=== PATIENT | female | born 1990 | race Caucasian/White ===

== ENCOUNTER → 2018-03-03 11:51 | Outpatient (CLI) | payer OTHER, SELFPAY ==
--- NOTE | 2018-03-02 13:50 | FLU_PTH ---
PATIENT: PIETER KELLER LOC: [facility] U#:[id number] AGE/SX: 34/F ROOM: RE03/03/[address]: Dr. Vania Johnson MD : 1990 BED: DIS: SPEC #: [id number] RECD: 03/03/18 11:50 STATUS: JELANI REBraxton #: [id number] HERNESTO: 03/02/18 13:[address]: Vania Johnson DEPT: CYTOLOGY RECD BY: Micky Whitt ENTERED: 03/03/18 12:15 SP TYPE: Fluid OTHR DR: Dr. Join Adamson MD Tissues: A - Thyroid gland, NOS B - Thyroid gland, NOS Procedures: Pap Stain (control) Special Stain Group II Surgery Specimen Level IV Cell Block Cytospin Fluid Cytology Other HEADER OPERATION: Ultrasound-guided fine needle aspiration of right thyroid PRE-OP DIAGNOSIS: Thyroid nodules TISSUE SUBMITTED: A ? FNA right thyroid for cytology, B ? Right thyroid 6 slides DIAGNOSIS CYTOLOGY A. Right thyroid nodule fluid for cytology (cytospin and cell block): Negative for malignant cells. See cytology study and comment. B. Right thyroid nodule, ultrasound-guided FNA (smears): Consistent with benign colloid nodule. See cytology study and comment. JACKLYN:ubaldo 03/04/18 COMMENT Correlation with clinical, radiologic findings and appropriate follow up are necessary. CYTOLOGY STUDY Slides are reviewed. A. The specimen consists of benign follicular cells and numerous macrophages. B. The specimen is adequate for evaluation. The specimen consists of benign follicular cells, lymphocytes and colloid. CYTOLOGY GROSS A - Received is 40 ml of cloudy brown fluid labeled with the patient's name and and designated per the requisition as right thyroid. Submitted for cytology preparation including cell block. B - Received are six smears labeled with the patient's name and designated per the requisition as right thyroid. Submitted for staining. / JACKLYN:ubaldo 03/03/18 TC:5 CPT: 15172, 52649, 98060
== END ==
PROVIDERS: Family Provider Family Medicine; PCP Family Medicine; Visit Provider Surgery
DX: E04.2 Nontoxic multinodular goiter (principal)
CPT/HCPCS: 88108; 88161; 88305; 88313

== ENCOUNTER 2018-05-01 18:07 | Emergency (ER) | payer OTHER, SELFPAY ==
[2018-05-01 18:07] VITALS: BP 163/93; PULSE 97; RESP 18; TEMP 37.1; O2SAT 98; BMI 35.4
--- NOTE | 2018-05-01 19:38 | ED.VISSUMM ---
- ER Visit Summary Date of Service: 05/01/18 Chief Complaint: Itching History of Present Illness: The patient is a 27 F who presents with itching. She woke this morning her feet were itching. That is improved but now she complains of severe itching on both her hands. She used cortisone cream. She states she can take Benadryl at home because she has children and it will knock me out. She denies any other systemic symptoms. No fevers chest pain shortness of breath nausea or vomiting. She cannot identify any new exposures any new soaps or detergents. She cannot think of any new foods or medications. Physical Examination: Afebrile vitals are stable Moist mucous members Heart regular rate and rhythm Lungs are clear Abdomen soft Patient is aggressively and rapidly scratching both her hands there is some erythema of both of the hands although it is difficult to tell if this is a rash or just related to the fact that she has been scratching her hands very hard I do not see lymphangitic streaking it is not hot to the touch there are no petechiae or raised lesions or blistering or desquamation Test Results: Not indicated Emergency Department Course and Treatment: Given the patient's symptoms are currently isolated to the hands I suspect this is related to a contact dermatitis. However she cannot identify a new exposure. We will give her a dose of intramuscular Kenalog here. 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 She was advised to follow-up with her primary care physician. She understands return for new or worsening symptoms and was discharged home. Treatment Plan: [] Disposition: Discharge Impression: Rash and itching to bilateral hands, suspect contact dermatitis This note was generated with [employer] dictation software. It may contain incorrect words, spelling, and punctuation that were not noted in review of the chart prior to signing ED Disposition - Plan for ED Patient: Chief Complaint: Itching Referrals: Joni Adamson MD [Primary Care Provider] -
--- NOTE | 2018-05-01 19:40 | ED.DEP ---
ED Disposition - Plan for ED Patient: Chief Complaint: Itching Instructions: ED Dermatitis Contact Referrals: Joni Adamson MD [Primary Care Provider] -
[2018-05-01] MEDS: Triamcinolone Acetonide 40 MG/ML Vial IM (19:47)
[2018-05-01 20:11] VITALS: BP 150/74; PULSE 95; RESP 14; O2SAT 98
== END 2018-05-01 20:15 | disposition home or self-care (01) ==
LOC: ED 19:44
PROVIDERS: Emergency Provider Emergency Medicine; Family Provider Family Medicine; PCP Family Medicine
DX: R21 Rash and other nonspecific skin eruption (principal); L29.9 Pruritus, unspecified; F41.9 Anxiety disorder, unspecified; Z79.899 Other long term (current) drug therapy; Z72.0 Tobacco use
CPT/HCPCS: 96372; 99282

== ENCOUNTER 2018-06-15 11:21 | Emergency (ER) | payer OTHER, SELFPAY ==
[2018-06-15 11:23] VITALS: BP 157/106; PULSE 129; RESP 15; TEMP 36; O2SAT 95; BMI 36.9
--- NOTE | 2018-06-15 11:52 | EKG12_ITS ---
Test Reason : SYNCOPE Blood Pressure : / mmHG Vent. Rate : 089 BPM Atrial Rate : 089 BPM P-R Int : 132 ms QRS Dur : 084 ms QT Int : 370 ms P-R-T Axes : 003 -16 005 degrees QTc Int : 450 ms Normal sinus rhythm Normal ECG Confirmed by PATRICIA BECERRA, PAULA ([id number]), continuity editor CHARLEEN WRIGHT ([id number]) on 06/16/2018 3:45:44 PM Referred By: RADHA Confirmed By:PAULA GOMEZ MD
--- NOTE | 2018-06-15 11:56 | NURSING ---
NO OLD EKGS
[2018-06-15 12:18] LABS: Absolute Lymphocyte Count 2.39 X10^3/ul (0.83-4.51); Absolute Neutrophil Count 10.4 X10^3/uL (2.0-7.7); Basophil# 0.06 X10^3/uL; Basophil% 0.4 % (0-1); Eosinophil# 0.68 X10^3/uL; Eosinophils% 4.8 % (0-5); Hematocrit 45.7 % (37-47); Hemoglobin 14.6 g/dl (12.0-15.0); Lymphocyte # 2.39 X10^3/ul (4.0); Lymphocyte % 16.7 % (19-41); Mean Corp Hgb Conc 31.9 g/gl (32-36); Mean Corpuscular Hgb 23.2 pg (27.0-32.0); Mean Corpuscular Volume 72.5 fL (81-99); Mean Platelet Vol. 9.8 fl (6.2-12.0); Monocyte% 4.9 % (0-10); Neutrophil # 10.36 X10^3/uL (2.7-7.7); Neutrophil % 72.6 % (47-70); POSITIVE COUNT NO; POSITIVE DIFFERENTIAL NO; POSITIVE MORPHOLOGY NO; Platelet Count 362 K/mm3 (150-450); RBC Distribution Width CV 15.1 % (11.6-14.6); RBC Distribution Width SD 39.9 fl (35.1-43.9); White Blood Count 14.3 K/mm3 (4.4-11.0)
[2018-06-15 12:34] LABS: ALB/GLOB Ratio 0.8 RATIO (0.9-2.4); AST(SGOT) 12 U/L (15-37); Alanine Aminotransfer ALT/SGPT 26 U/L (13-56); Albumin, Serum 3.7 g/dL (3.2-5.0); Alkaline Phosphatase 143 U/L (45-117); Anion Gap 9 (5-15); BUN 13 mg/dL (7-18); BUN/Creat Ratio 18.2 RATIO (10-20); Calcium,Total 8.9 mg/dL (8.5-10.1); Chloride 105 mmol/L (98-107); Creatinine, Serum 0.71 mg/dL (0.55-1.02); EST Glomerular Filtration Rate 104 mL/min (>60); Est Glom Filt Rate - Afr Amer 126 mL/min (>60); Estimated Creatinine Clearance 102.78 ml/min; Globulin 4.4 g/dL (2.2-4.2); Glucose 94 mg/dL (74-106); Protein, Total 8.1 g/dL (6.4-8.2); Sodium Level 138 mmol/L (136-145)
[2018-06-15 12:40] LABS: Pregnancy, Serum, hCG Quali. NEGATIVE Negative (0-9 Nonpreg)
--- NOTE | 2018-06-15 12:42 | CT_ITS ---
STUDY: CTA CHEST REASON FOR EXAM: Female, 27 years old. Cough. Syncopal episode. RADIATION DOSAGE (If Supplied By Facility): CTDIvol = ( 14.85 ) mGy, DLP = ( 579.01 ) mGycm TECHNIQUE: The examination was performed with the intravenous administration of 100ML ml of Isovue 370 contrast material. Post-processing of the angiographic images was performed, with multiplanar reformation and 3D reconstruction. Individualized dose optimization techniques were used for this CT. COMPARISON: None. FINDINGS: Normal enhancement of the main pulmonary artery and right and left pulmonary arteries. Normal enhancement of the bilateral peripheral pulmonary arteries. There is no demonstrated pulmonary embolism. Normal thoracic aorta and visualized great vessels. There is no demonstrated aortic dissection. Normal heart and pericardium. Normal mediastinum. Normal hilar regions. Normal visualized trachea and bronchi. The lungs are well expanded. Normal pulmonary parenchyma. Normal pleura. Normal chest wall structures. Normal osseous structures. Normal visualized upper abdomen. CT/CTA Chest W/WO Contrast IMPRESSION: Normal CTA chest examination, without a demonstrated pulmonary embolism or arterial dissection. Electronically Signed: Matti Scherer MD at 13:35 EST Tel [phone], Service support ,
--- NOTE | 2018-06-15 12:43 | CT_ITS ---
STUDY: CT BRAIN WITHOUT CONTRAST REASON FOR EXAM: Female, 27 years old. Syncope and amnesia. RADIATION DOSAGE (If Supplied By Facility): CTDIvol = ( 44.99 ) mGy, DLP = ( 745.49 ) mGycm TECHNIQUE: Transaxial CT imaging of the brain was performed without administration of intravenous contrast material. Individualized dose optimization techniques were used for this CT. COMPARISON: None. FINDINGS: Normal soft tissue structures. Normal calvarium. Normal size ventricles and extra-axial spaces for the patient's age. Normal white matter tracts of the cerebral hemispheres. Normal basal ganglia and thalami. Normal brainstem. Normal cerebellum. There is no intracranial hemorrhage. There are no findings of an acute ischemic infarction. There is evidence of an empty sella. Normal visualized paranasal sinuses. CT/Brain/Head without Contrast IMPRESSION: Normal unenhanced CT scan of the brain. Electronically Signed: Matti Scherer MD at 13:33 EST Tel [phone], Service support ,
--- NOTE | 2018-06-15 14:20 | ED.VISSUMM ---
- ER Visit Summary Date of Service: 06/15/18 Chief Complaint: Possible syncope History of Present Illness: The patient is a 27 F who states that last she had carpal tunnel injury. She states that on Wednesday she was diagnosed hypertension started on lisinopril. Yesterday she began to have a very persistent dry cough. She states her throat hurts from coughing. She denies any nasal congestion. No fever. Today she was going to go to the urgent care to see a doctor about this cough. She low the kids up and when she went inside she states she must have tripped on something and fell and she states that she does not really remember anything after that but she must have gone to the kitchen and stumbled because there was disarray. She notes pain in the right hand. She denies any other injuries. Physical Examination: Afebrile vital signs are stable Gen: Well-nourished well-developed Head: Normocephalic atraumatic Eyes: Perrl EOMI ENT: TMs clear no rhinorrhea moist mucous membranes Neck: Supple no lymphadenopathy no JVD nontender CVS: Regular rate rhythm no murmurs normal S1-S2 Respiratory: No distress clear to auscultation bilaterally chest nontender Abdomen: Soft nontender nondistended normal bowel sounds no masses Back: Nontender Extremity: There is a healing incision over the palm of the right hand. There is no significant swelling or ecchymosis. Stitches are intact. Neurovascular intact distally. Skin: Normal color no rash Neuro: alert orientated ?3 CN II-XII intact normal strength sensation reflexes gait cerebellar Psych: Normal affect normal mood Test Results: CT head and chest were negative. White count 14.3 hemoglobin 14.6. Platelets 362. CBC liver enzymes normal. Troponin negative. Parents test negative. EKG sinus at a rate of 89. Emergency Department Course and Treatment: Patient was observed has had no events on the monitor. The patient was advised this dry cough that seems to have no other symptoms with it could potentially be caused by lisinopril and I would recommend stopping the lisinopril. Also write for some Tessalon Perles. She is to follow-up with her doctor soon as possible. Impression: 1. Cough 2. Syncope This note was generated with [employer] software. It may contain incorrect words, spelling, and punctuation that were not noted in review of the chart prior to signing ED Disposition - Plan for ED Patient: Disposition: Home or Assisted Living Chief Complaint: Syncope Instructions: ED Fainting Unkn Cause, ED URI Viral Prescriptions: Benzonatate [Tessalon Perle] 100 mg PO 4X/DAY PRN PRN #20 cap PRN Reason: Cough Referrals: Jnoi Adamson MD [Primary Care Provider] - 1 Week
[2018-06-15 16:09] VITALS: BP 138/74; PULSE 69; RESP 15; O2SAT 98
== END 2018-06-15 14:30 | disposition home or self-care (01) ==
PROVIDERS: Emergency Provider Emergency Medicine; Family Provider Family Medicine; PCP Family Medicine
DX: R55 Syncope and collapse (principal); R05 Cough; I10 Essential (primary) hypertension; F32.9 Major depressive disorder, single episode, unspecified; F41.9 Anxiety disorder, unspecified; Z79.899 Other long term (current) drug therapy
CPT/HCPCS: 70450; 71275; 80053; 84484; 84703; 85025; 93005; 99284; Q9967; A4216

== ENCOUNTER 2018-06-24 20:40 | Emergency (ER) | payer OTHER, SELFPAY ==
[2018-06-24 20:41] VITALS: BP 157/116; PULSE 95; RESP 20; TEMP 36.6; O2SAT 97; BMI 38.9
[2018-06-24] MEDS: cloNIDine HCl 0.1 MG Tablet PO (21:25)
[2018-06-24 22:19] VITALS: BP 144/105; PULSE 75; RESP 15; O2SAT 98
--- NOTE | 2018-06-24 22:54 | CT_ITS ---
STUDY: CT BRAIN WITHOUT CONTRAST REASON FOR EXAM: Female, 27 years old. Dizziness, hypertension RADIATION DOSAGE (If Supplied By Facility): CTDIvol = ( 44.99 ) mGy, DLP = ( 779.24 ) mGycm TECHNIQUE: Transaxial CT imaging of the brain was performed without administration of intravenous contrast material. Individualized dose optimization techniques were used for this CT. COMPARISON: June 15 2018 FINDINGS: Normal soft tissue structures. Normal calvarium. Normal size ventricles and extra-axial spaces for the patient's age. Normal white matter tracts of the cerebral hemispheres. Normal basal ganglia and thalami. Normal brainstem. Normal cerebellum. There is no intracranial hemorrhage. There are no findings of an acute ischemic infarction. Normal visualized paranasal sinuses. CT/Brain/Head without Contrast IMPRESSION: Normal unenhanced CT scan of the brain. Electronically Signed: Nathan Nielson DO at 23:45 EST Tel [phone], Service support ,
--- NOTE | 2018-06-24 22:55 | RAD_ITS ---
STUDY: X-RAY CHEST REASON FOR EXAM: Female, 27 years old. Hypertension TECHNIQUE: Single frontal view COMPARISON: None. FINDINGS: The lungs are clear and expanded. There is no demonstrated pleural abnormality. Normal size heart. Normal mediastinum and doug. Normal visualized pulmonary arteries. Normal visualized aortic arch and descending thoracic aorta. Normal visualized thoracic spine. Normal visualized ribs, clavicles, and shoulders. There is no demonstrated abnormality of the visualized soft tissue structures of the upper abdomen. RAD/Chest 1 View (Portable) IMPRESSION: Normal x-ray examination of the chest. Electronically Signed: Nathan Nielson DO at 23:16 EST Tel [phone], Service support ,
--- NOTE | 2018-06-24 22:55 | EKG12_ITS ---
Test Reason : HTN Blood Pressure : / mmHG Vent. Rate : 081 BPM Atrial Rate : 081 BPM P-R Int : 160 ms QRS Dur : 088 ms QT Int : 394 ms P-R-T Axes : 019 -12 -02 degrees QTc Int : 457 ms Normal sinus rhythm with sinus arrhythmia Normal ECG Confirmed by PATRICIA BECERRA, PAULA ([id number]), commercial production editor CHARLEEN WRIGHT ([id number]) on 06/29/2018 11:36:21 AM Referred By: LUCIE Confirmed By:PAULA GOMEZ MD
[2018-06-24 23:42] LABS: Absolute Lymphocyte Count 3.12 X10^3/ul (0.83-4.51); Absolute Neutrophil Count 5.5 X10^3/uL (2.0-7.7); Anion Gap 6 (5-15); BUN 13 mg/dL (7-18); BUN/Creat Ratio 20.7 RATIO (10-20); Basophil# 0.05 X10^3/uL; Basophil% 0.5 % (0-1); Calcium,Total 8.2 mg/dL (8.5-10.1); Chloride 108 mmol/L (98-107); Creatinine, Serum 0.63 mg/dL (0.55-1.02); EST Glomerular Filtration Rate 120 mL/min (>60); Eosinophil# 0.61 X10^3/uL; Eosinophils% 6.2 % (0-5); Est Glom Filt Rate - Afr Amer 146 mL/min (>60); Estimated Creatinine Clearance 110.96 ml/min; Glucose 109 mg/dL (74-106); Hematocrit 41.5 % (37-47); Hemoglobin 12.6 g/dl (12.0-15.0); Lymphocyte # 3.12 X10^3/ul (4.0); Lymphocyte % 31.5 % (19-41); Mean Corp Hgb Conc 30.4 g/gl (32-36); Mean Corpuscular Hgb 23.2 pg (27.0-32.0); Mean Corpuscular Volume 76.4 fL (81-99); Monocyte# 0.62 X10^3/uL; Monocyte% 6.3 % (0-10); Neutrophil # 5.48 X10^3/uL (2.7-7.7); Neutrophil % 55.2 % (47-70); Platelet Count 291 K/mm3 (150-450); Potassium 3.9 mmol/L (3.5-5.1); RBC Distribution Width SD 41.4 fl (35.1-43.9); Red Blood Count 5.43 M/mm3 (4.2-5.4); Sodium Level 138 mmol/L (136-145); White Blood Count 9.9 K/mm3 (4.4-11.0)
[2018-06-24 23:45] LABS: POSITIVE COUNT NO; POSITIVE DIFFERENTIAL NO; POSITIVE MORPHOLOGY NO
--- NOTE | 2018-06-25 00:22 | ED.VISSUMM ---
- ER Visit Summary Date of Service: 06/25/18 Chief Complaint: High blood pressure History of Present Illness: The patient is a 27 F with high blood pressure. The patient has a new diagnosis of hypertension. She was recently seen in the emergency department and started on a blood pressure medication. She followed up with her primary care doctor who switched her to losartan. Tonight she was outside and then felt dizzy like she was going to pass out. She checked her pressure at home and it was at a maximum of 184/120. She is taking her medications as prescribed. She denies any other symptoms. Physical Examination: Blood pressure is 157/116. Otherwise vitals normal. Afebrile. Exam unremarkable. Heart regular rate and rhythm. Lungs clear. Skin normal. Cranial nerves grossly intact. Good strength and sensation. Normal cerebellar testing. Test Results: Initially, labs were not performed Emergency Department Course and Treatment: Patient was initially treated with a dose of Catapres 0.1 mg. I reassessed her and her blood pressure was 144/105. The patient still felt lightheaded. She was very worried about her blood pressures. We performed a workup. She had an EKG, chest x-ray, CT brain, labs, and troponin. Her testing was all unremarkable. Patient was feeling reassured and she was referred to outpatient follow-up. She may return at any time for new or worsening issues. Treatment Plan: As above Disposition: Discharged Impression: 1. Hypertension This note was generated with [employer] software. It may contain incorrect words, spelling, and punctuation that were not noted in review of the chart prior to signing ED Disposition - Plan for ED Patient: Chief Complaint: Hypertension Referrals: Joni Adamson MD [Primary Care Provider] -
--- NOTE | 2018-06-25 00:26 | ED.DEP ---
ED Disposition - Plan for ED Patient: Chief Complaint: Hypertension Instructions: ED HTN Established Referrals: Joni Adamson MD [Primary Care Provider] -
[2018-06-25 00:35] VITALS: BP 130/95; BP 135/101; PULSE 80; PULSE 85; RESP 14; O2SAT 98
== END 2018-06-25 00:37 | disposition home or self-care (01) ==
PROVIDERS: Emergency Provider Emergency Medicine; Family Provider Family Medicine; PCP Family Medicine
DX: I10 Essential (primary) hypertension (principal); F41.9 Anxiety disorder, unspecified; F32.9 Major depressive disorder, single episode, unspecified; Z79.899 Other long term (current) drug therapy
CPT/HCPCS: 70450; 71045; 80048; 84484; 85025; 93005; 99284; A4216

== ENCOUNTER 2018-11-27 14:54 | Emergency (ER) | payer OTHER, SELFPAY ==
[2018-11-27 14:56] VITALS: BP 162/94; PULSE 95; RESP 18; TEMP 36.8; O2SAT 97; BMI 40.1
--- NOTE | 2018-11-27 15:31 | ED.VISSUMM ---
- ER Visit Summary Date of Service: 11/27/18 Chief Complaint: Sore throat History of Present Illness: The patient is a 20 F who presents for sore throat since this morning. Patient has been having sore throat worse with swallowing. She denies fever but states she was very sweaty and warm. Denies cough, abdominal pain, nausea or vomiting, chest pain, urinary symptoms or any other complaints other than the sweats and the sore throat. Patient states she has had strep throat 3 times this year. She has been on antibiotics each time and will have resolution of her symptoms within 2 days of starting the antibiotics. Patient has had a tonsillectomy in the seventh grade. Patient denies any other symptoms. Denies any other medical issues. Physical Examination: She is afebrile and hemodynamically stable, well-nourished well-developed sitting in bed in no distress. Neck is supple, no tender lymphadenopathy, no meningismus. Oropharynx shows mild posterior erythema, symmetric structures, no sublingual or submandibular swelling or tenderness. TMs are clear and pearly bilaterally. No rhinorrhea. Normal conjunctiva. Heart regular rate and rhythm without murmur. Lungs are clear to auscultation bilaterally. Patient moves all extremities. Remainder of exam unremarkable. Test Results: Medications Given Discontinued Medications Dexamethasone (Decadron) 8 mg PO X1 ONE Stop: 11/27/18 15:33 Last Admin: 11/27/18 15:58 Dose: 8 mg Emergency Department Course and Treatment: Patient presents for pharyngitis that started this morning. She was given a dose of Decadron for her symptoms. Rapid strep was negative. Patient was encouraged to follow-up with her doctor regarding her recurrent sore throats. Patient was discharged home in improved condition. Treatment Plan: [] Disposition: [] Impression: Viral pharyngitis This note was generated with [employer] dictation software. It may contain incorrect words, spelling, and punctuation that were not noted in review of the chart prior to signing ED Disposition - Plan for ED Patient: Disposition: Home or Assisted Living Instructions: ED Pharyngitis Viral Referrals: Joni Adamson MD [Primary Care Provider] - 3-5 Days if not improving Additional Instructions: Use [id number] pain medication as needed for your sore throat. Please follow-up with your doctor if you continue to have issues with sore throats. Your strep was negative. If you have any worsening of your condition or any new concerning symptoms, please return immediately to the emergency department for another evaluation.
[2018-11-27 16:32] VITALS: BP 148/73; PULSE 68; RESP 16; O2SAT 98
== END 2018-11-27 16:32 | disposition home or self-care (01) ==
PROVIDERS: Emergency Provider Emergency Medicine; Family Provider Family Medicine; PCP Family Medicine
DX: J02.9 Acute pharyngitis, unspecified (principal)
CPT/HCPCS: 87081; 87880; 99282

== ENCOUNTER → 2019-04-17 16:16 | Outpatient (CLI) | payer OTHER, SELFPAY ==
[2019-04-17 14:23] VITALS: BMI 40.1
[2019-04-17 17:01] LABS: Protein, Urine (Random) 241.1 mg/dL (<11.9); Protein:Creat Ratio 1354 mg/g CRE (0-200)
[2019-04-17 20:51] LABS: Chlamydia Trachomatis by PCR Negative (Negative); Neisserai gonorrhoeae by PCR Negative (Negative); Probe Check PASS; Sample Adequacy Control PASS; Specimen Processing Control PASS
== END ==
PROVIDERS: Family Provider Family Medicine; PCP Family Medicine; Referring Provider Obstetrics & Gynecology; Visit Provider Obstetrics & Gynecology
DX: Z34.90 Encounter for supervision of normal pregnancy, unspecified, unspecified trimester (principal); O10.919 Unspecified pre-existing hypertension complicating pregnancy, unspecified trimester; Z12.4 Encounter for screening for malignant neoplasm of cervix; Z3A.00 Weeks of gestation of pregnancy not specified
CPT/HCPCS: 82570; 84156; 87086; 87088; 87491; 87591; 88175; G0145

== ENCOUNTER → 2019-05-05 08:52 | Outpatient (CLI) | payer OTHER, SELFPAY ==
[2019-04-17 14:23] VITALS: BMI 40.1
[2019-05-05 09:46] LABS: Absolute Lymphocyte Count 1.47 X10^3/uL (0.83-4.51); Absolute Neutrophil Count 6.8 X10^3/uL (2.0-7.7); Basophil# 0.04 X10^3/uL; Basophil% 0.4 % (0-1); Eosinophils% 3.3 % (0-5); Hematocrit 43.9 % (37-47); Hemoglobin 14.4 g/dL (12.0-15.0); Lymphocyte # 1.47 X10^3/ul (4.0); Lymphocyte % 15.9 % (19-41); Mean Corp Hgb Conc 32.8 g/dL (32-36); Mean Corpuscular Volume 82.4 fL (81-99); Monocyte# 0.48 X10^3/uL; Monocyte% 5.2 % (0-10); NRBC Flagged by Analyzer 0 % (0-5); Neutrophil # 6.84 X10^3/uL (2.7-7.7); Neutrophil % 74.2 % (47-70); Platelet Count 227 K/mm3 (150-450); RBC Distribution Width CV 14.2 % (11.6-14.6); RBC Distribution Width SD 41.5 fl (35.1-43.9); Red Blood Count 5.33 M/mm3 (4.2-5.4); White Blood Count 9.2 K/mm3 (4.4-11.0)
[2019-05-05 10:28] LABS: ALB/GLOB Ratio 0.7 RATIO (0.9-2.4); AST(SGOT) 9 U/L (15-37); Alanine Aminotransfer ALT/SGPT 16 U/L (13-56); Albumin, Serum 2.9 g/dL (3.2-5.0); Alkaline Phosphatase 74 U/L (45-117); Anion Gap 7 (5-15); BUN 7 mg/dL (7-18); BUN/Creat Ratio 11.1 RATIO (10-20); Calcium,Total 8.7 mg/dL (8.5-10.1); Chloride 106 mmol/L (98-107); Creatinine, Serum 0.63 mg/dL (0.55-1.02); EST Glomerular Filtration Rate 119 mL/min (>60); Est Glom Filt Rate - Afr Amer 144 mL/min (>60); Glucose 139 mg/dL (74-106); Glucose Challenge Gest 1H 50g 139 mg/dL (70-140); Potassium 3.3 mmol/L (3.5-5.1); Protein, Total 6.9 g/dL (6.4-8.2); Sodium Level 135 mmol/L (136-145)
[2019-05-05 11:29] LABS: HIV - WCH Non-Reactive (Nonreactive); Rubella IgG 21.9 IU/mL
[2019-05-12 02:40] LABS: Rapid Plasmin Reagin (RPR) NONREACTIVE (NONREACTIVE)
== END ==
PROVIDERS: Family Provider Family Medicine; PCP Family Medicine; Referring Provider Obstetrics & Gynecology; Visit Provider Obstetrics & Gynecology
DX: Z34.90 Encounter for supervision of normal pregnancy, unspecified, unspecified trimester (principal); O99.210 Obesity complicating pregnancy, unspecified trimester; E66.9 Obesity, unspecified; O10.919 Unspecified pre-existing hypertension complicating pregnancy, unspecified trimester; Z3A.00 Weeks of gestation of pregnancy not specified
CPT/HCPCS: 36415; 80053; 82950; 85025; 86592; 86703; 86762; 86850; 86900; 86901

== ENCOUNTER → 2019-05-17 14:16 | Outpatient (CLI) | payer OTHER, SELFPAY ==
[2019-05-17 09:37] VITALS: BMI 40.1
[2019-05-17 15:09] LABS: Protein, Urine (Random) 147.2 mg/dL (<11.9); Protein:Creat Ratio 876 mg/g CRE (0-200)
== END ==
PROVIDERS: Family Provider Family Medicine; PCP Family Medicine; Visit Provider Obstetrics & Gynecology
DX: O12.10 Gestational proteinuria, unspecified trimester (principal); Z3A.00 Weeks of gestation of pregnancy not specified
CPT/HCPCS: 82570; 84156

== ENCOUNTER 2019-06-25 20:38 | Emergency (ER) | payer OTHER, SELFPAY ==
[2019-06-14 14:39] VITALS: BMI 40.1
[2019-06-25] VITALS (9 sets, daily range): BP systolic 131–140; BP diastolic 76–93; PULSE 74–130; RESP 16–26; TEMP 36.6; O2SAT 95–100; BMI 39.9
--- NOTE | 2019-06-25 22:02 | ED.DCSUM_ITS ---
History of Present Illness Chief Complaint: Foreign Body Informant: Patient Onset: Today Context: Sudden Onset Timing: Continuous Narrative: Patient is a 28-year-old female currently 18 weeks presenting with food stuck in her throat. Patient states she was eating pork and noodles when she felt that it was stuck in her upper esophagus. This happened around 730 tonight. Since then she is been unable to handle her secretions or swallow anything. She denies any other complaints. She notes she often gets rice is stuck in her esophagus but that normally works its way through. She denies any history of acid reflux or food impaction. She is never had an EGD. Patient states she had tonsils removed as a child and had no issues with anesthesia. She denies any other complaints at this time. Her BATTERY ASSEMBLER is Dr. Tk Turcios. She denies any abnormal vaginal bleeding or discharge. Past Medical History - Allergies and Home Meds Allergies/Adverse Reactions: Allergies lisinopril Allergy (Verified 06/25/19 20:45) Other COUGH Primary Care Physician: Joni Adamson MD [Primary Care Provider] - Past Medical History: - - Hypertension Surgical History: noncontributory Smoking Status: Never smoker Review of Systems General: Denies: Chills, Fever, Sweats Eyes: Denies: Visual changes - bilaterally, Diplopia ENT: Denies: Rhinorrhea, Sore throat Cardiovascular: Denies: Chest pain, Palpitations Respiratory: Denies: Dyspnea, Cough, Dyspnea on exertion Gastrointestinal: Reports: - - Unable to swallow food and secretions. Denies: Abdominal pain, Nausea, Vomiting, Diarrhea, Melena, Hematochezia Genitourinary: Denies: Dysuria, Hematuria, Frequency Musculoskeletal: Denies: Back pain, Extremity Pain Skin: Denies: Rash, Wounds Neurological: Denies: Headache, Weakness, Numbness Physical Exam Vital Signs/Narrative: Vital Signs Temp Pulse Resp BP Pulse Ox 06/25/19 20:40 97.9 F 94 18 136/82 H 100 Inital Vital Signs reviewed: Yes General: Well nourished, Well developed, No Acute Distress Head: Normocephalic, Atraumatic Eyes: Perrl, EOMI ENT: Moist mucous membranes, No rhinorrhea, - - Patient spitting up secretions and drainage attempts to swallow Neck: Supple, Nontender Cardiovascular: Regular rate, Regular rhythm, No murmurs Respiratory: No distress, CTA bilaterally, Chest nontender Abdomen: Soft, Nontender, Nondistended, Normal bowel sounds, - - Gravid abdomen at the level of the umbilicus Back: Nontender, Normal Inspection Extremities: Nontender, No edema Skin: Normal color, No rash Neurological: Alert, Oriented x3, Cranial nerves II-XII grossly intact, Normal Strength, Normal Sensation Psychological: Normal affect, Normal Mood Diagnostic/Tx/Re-eval - Medical Decision Making Patient is evaluated for esophageal food impaction. She is able to handle her secretions and requires emergent bedside EGD. She is given an IV Zofran and glucagon with no improvement of her symptoms. Discussed with Dr. Salinas will come in for EGD. Patient is 18 weeks so I did discuss the case with her BATTERY ASSEMBLER, Dr. Tk Turcios, and her need for sedation. She is agreeable with this and feels that should be safe. Procedures Procedure(s): Sedation. Patient placed on end-tidal CO2, continuous telemetry monitoring and continuous O2 saturation monitoring. Multiple aliquots of propofol for sedation are given. EGD performed by Dr. Salinas. Patient did have an episode of vomiting during the procedure. This was suctioned up and she did not have any episodes of hypoxia with this. Only minimal sedation was achieved however EGD was completed. Patient received a total of 120 mg of propofol. She was monitored with telemetry and continuous O2 saturation until she returned to her baseline. ED Disposition - Plan for ED Patient: Disposition: Home or Assisted Living Diagnosis: Food impaction of esophagus Instructions: ESOPHAGEAL FOREIGN BODY, Resolved Referrals: Joni Adamson MD [Primary Care Provider] - Luiz Slainas MD [STAFF PHYSICIAN] - Additional Instructions: Follow-up with your primary care doctor. Stick to a liquid diet for the next 3 days to prevent repeat impaction. You have further difficulty swallowing or handling foods you can also follow-up with Dr. Salinas, the surgeon that did your scope in the ER. Return to emergency room if you have any worsening symptoms or further concerns.
[2019-06-25] MEDS: Ondansetron 4 MG/2 ML Vial IV (22:14)
[2019-06-25] MEDS: Glucagon 1 MG/ML Syringe 0.5 MG IV (22:14)
[2019-06-25] MEDS: 0.9% Normal Saline 1,000 ML 999 ML IV (22:45)
[2019-06-25] MEDS: Propofol 200 MG/20 ML Vial IV BOLUS (22:45)
--- NOTE | 2019-06-25 23:08 | OP.EGD_ITS ---
Patient Name: Deborah Henry Procedure Date: 06/25/2019 10:38 PM Date of : 1990 Age: 28 Procedure: Upper GI endoscopy Indications: Foreign body in the esophagus Providers: Luiz Salinas MD Medicines: See the Anesthesia note for documentation of the administered medications Patient Profile: This is a 28 year old female. Refer to note in patient chart for documentation of history and physical. Complications: No immediate complications. Procedure: Pre-Anesthesia Assessment: - Prior to the procedure, a History and Physical was performed, and patient medications and allergies were reviewed. The patient's tolerance of previous anesthesia was also reviewed. The risks and benefits of the procedure and the sedation options and risks were discussed with the patient. All questions were answered, and informed consent was obtained. Prior Anticoagulants: The patient has taken no previous anticoagulant or antiplatelet agents. ASA Grade Assessment: III - A patient with severe systemic disease. After reviewing the risks and benefits, the patient was deemed in satisfactory condition to undergo the procedure. After obtaining informed consent, the endoscope was passed under direct vision. Throughout the procedure, the patient's blood pressure, pulse, and oxygen saturations were monitored continuously. The gastroscope was introduced through the mouth, and advanced to the duodenal bulb. The upper GI endoscopy was technically difficult and complex due to a partially obstructing mass. Successful completion of the procedure was aided by increasing the dose of sedation medication. The patient tolerated the procedure well. Scope In: 10:49:48 PM Scope Out: 10:59:14 PM Total Procedure Duration Time 0 hours 9 minutes 26 seconds Findings: Food was found in the lower third of the esophagus. Removal of food was accomplished. No biopsies or other specimens were collected for this exam. A large amount of food (residue) was found in the entire examined stomach. She did vomit after the procedure. The duodenal bulb was normal. Impression: - Food in the lower third of the esophagus. No specimens collected. Removal was successful. - A large amount of food (residue) in the stomach. Recommendation: - Discharge patient to home. - Clear liquid diet for 2 days. - Continue present medications. - Return to primary care physician PRN. Procedure Code(s): --- Professional --- 54075, Esophagogastroduodenoscopy, flexible, transoral; with removal of foreign body(s) Diagnosis Code(s): --- Professional --- T18.128A, Food in esophagus causing other injury, initial encounter T18.2XXA, Foreign body in stomach, initial encounter T18.108A, Unspecified foreign body in esophagus causing other injury, initial encounter CPT copyright 2017 [employer]. All rights reserved. The codes documented in this report are preliminary and upon optical manufacturing technician review may be revised to meet current compliance requirements. MD Luiz Tyler MD 06/25/2019 11:08:13 PM This report has been signed electronically. Number of Addenda: 0 Note Initiated On: 06/25/2019 10:38 PM
== END 2019-06-26 00:12 | disposition home or self-care (01) ==
PROVIDERS: Surgery; Emergency Provider Emergency Medicine; Family Provider Family Medicine; PCP Family Medicine
PROC: 0DJ08ZZ Inspection of Upper Intestinal Tract, Via Natural or Artificial Opening Endoscopic (ICD-10-PCS; CPT 43235; principal; 2019-06-25 22:30)
DX: O9A.212 Injury, poisoning and certain other consequences of external causes complicating pregnancy, second trimester (principal); T18.128A Food in esophagus causing other injury, initial encounter; T18.2XXA Foreign body in stomach, initial encounter; Z3A.18 18 weeks gestation of pregnancy; X58.XXXA Exposure to other specified factors, initial encounter; Y93.9 Activity, unspecified; Y92.9 Unspecified place or not applicable; O16.2 Unspecified maternal hypertension, second trimester; Z79.82 Long term (current) use of aspirin; Z79.899 Other long term (current) drug therapy
CPT/HCPCS: 43247; 96361; 96374; 96375; 99156; 99285; J7030; A4216; J1610; J2405

== ENCOUNTER → 2019-08-10 16:20 | Outpatient (CLI) | payer OTHER, SELFPAY ==
[2019-08-10 15:56] VITALS: BMI 39.9
[2019-08-10 16:47] LABS: Absolute Lymphocyte Count 1.84 X10^3/uL (0.83-4.51); Absolute Neutrophil Count 7.4 X10^3/uL (2.0-7.7); Basophil# 0.06 X10^3/uL; Basophil% 0.6 % (0-1); Eosinophil# 0.34 X10^3/uL; Eosinophils% 3.2 % (0-5); Lymphocyte # 1.84 X10^3/ul (4.0); Lymphocyte % 17.5 % (19-41); Mean Corp Hgb Conc 33.3 g/dL (32-36); Mean Corpuscular Volume 84.1 fL (81-99); Mean Platelet Vol. 9.8 fl (6.2-12.0); Monocyte# 0.68 X10^3/uL; Monocyte% 6.5 % (0-10); NRBC Flagged by Analyzer 0 % (0-5); Neutrophil # 7.36 X10^3/uL (2.7-7.7); Platelet Count 208 K/mm3 (150-450); RBC Distribution Width CV 14.3 % (11.6-14.6); RBC Distribution Width SD 43.5 fl (35.1-43.9); Red Blood Count 4.28 M/mm3 (4.2-5.4); White Blood Count 10.5 K/mm3 (4.4-11.0)
[2019-08-10 16:51] LABS: Protein, Urine (Random) 90.8 mg/dL (<11.9); Protein:Creat Ratio 750 mg/g CRE (0-200)
[2019-08-10 17:28] LABS: ALB/GLOB Ratio 0.8 RATIO (0.9-2.4); AST(SGOT) 9 U/L (15-37); Alanine Aminotransfer ALT/SGPT 14 U/L (13-56); Albumin, Serum 2.8 g/dL (3.2-5.0); Alkaline Phosphatase 96 U/L (45-117); Anion Gap 8 (5-15); BUN 5 mg/dL (7-18); BUN/Creat Ratio 9.2 RATIO (10-20); Calcium,Total 8.7 mg/dL (8.5-10.1); Chloride 113 mmol/L (98-107); Creatinine, Serum 0.54 mg/dL (0.55-1.02); EST Glomerular Filtration Rate 140 mL/min (>60); Est Glom Filt Rate - Afr Amer 170 mL/min (>60); Globulin 3.6 g/dL (2.2-4.2); Glucose 100 mg/dL (74-106); Potassium 3.8 mmol/L (3.5-5.1); Protein, Total 6.4 g/dL (6.4-8.2); Sodium Level 141 mmol/L (136-145)
== END ==
PROVIDERS: Family Provider Family Medicine; PCP Family Medicine; Referring Provider Obstetrics & Gynecology; Visit Provider Obstetrics & Gynecology
DX: O12.10 Gestational proteinuria, unspecified trimester (principal); Z3A.00 Weeks of gestation of pregnancy not specified
CPT/HCPCS: 36415; 80053; 82570; 84156; 85025

== ENCOUNTER → 2019-09-01 15:40 | Outpatient (CLI) | payer OTHER, SELFPAY ==
[2019-08-10 15:56] VITALS: BMI 39.9
[2019-09-01 16:10] LABS: Absolute Lymphocyte Count 1.61 X10^3/uL (0.83-4.51); Basophil# 0.03 X10^3/uL; Basophil% 0.3 % (0-1); Eosinophil# 0.32 X10^3/uL; Eosinophils% 3.2 % (0-5); Hematocrit 34.2 % (37-47); Hemoglobin 11.3 g/dL (12.0-15.0); Lymphocyte # 1.61 X10^3/ul (4.0); Lymphocyte % 16.2 % (19-41); Mean Corpuscular Hgb 27.7 pg (27.0-32.0); Mean Corpuscular Volume 83.8 fL (81-99); Mean Platelet Vol. 9.7 fl (6.2-12.0); Monocyte# 0.62 X10^3/uL; Monocyte% 6.3 % (0-10); NRBC Flagged by Analyzer 0 % (0-5); Neutrophil # 7.01 X10^3/uL (2.7-7.7); Neutrophil % 70.8 % (47-70); Platelet Count 209 K/mm3 (150-450); RBC Distribution Width CV 14.6 % (11.6-14.6); RBC Distribution Width SD 44.1 fl (35.1-43.9); Red Blood Count 4.08 M/mm3 (4.2-5.4); White Blood Count 9.9 K/mm3 (4.4-11.0)
[2019-09-01 16:22] LABS: Glucose Challenge Gest 1H 50g 127 mg/dL (70-140)
[2019-09-01 17:09] LABS: Protein, Urine (Random) 68.7 mg/dL (<11.9); Protein:Creat Ratio 693 mg/g CRE (0-200)
== END ==
PROVIDERS: PCP Family Medicine; Referring Provider Obstetrics & Gynecology; Visit Provider Obstetrics & Gynecology
DX: O09.90 Supervision of high risk pregnancy, unspecified, unspecified trimester (principal); O12.10 Gestational proteinuria, unspecified trimester; Z3A.00 Weeks of gestation of pregnancy not specified
CPT/HCPCS: 36415; 82570; 82950; 84156; 85025

== ENCOUNTER 2019-09-14 00:40 | Outpatient (CLI) | payer OTHER, SELFPAY ==
[2019-09-01 16:06] VITALS: BMI 41.8
[2019-09-14 01:33] VITALS: BMI 41.1
[2019-09-14 01:51] LABS: Mucous, Urine 0 SEEN /hpf (<or=2+)
[2019-09-14] MEDS: cycloBENZAPRine HCl 10 MG Tablet PO (01:51)
[2019-09-14] MEDS: 0.9% Saline Lock 10 ML Syringe IV (01:51)
[2019-09-14 01:52] LABS: Absolute Lymphocyte Count 2.23 X10^3/uL (0.83-4.51); Absolute Neutrophil Count 9.2 X10^3/uL (2.0-7.7); Basophil# 0.05 X10^3/uL; Basophil% 0.4 % (0-1); Eosinophil# 0.41 X10^3/uL; Eosinophils% 3.1 % (0-5); Hemoglobin 11.5 g/dL (12.0-15.0); Lymphocyte # 2.23 X10^3/ul (4.0); Mean Corp Hgb Conc 33.8 g/dL (32-36); Mean Corpuscular Hgb 28.1 pg (27.0-32.0); Mean Corpuscular Volume 83.1 fL (81-99); Mean Platelet Vol. 9.8 fl (6.2-12.0); Monocyte# 0.88 X10^3/uL; Monocyte% 6.7 % (0-10); NRBC Flagged by Analyzer 0 % (0-5); Neutrophil # 9.21 X10^3/uL (2.7-7.7); Neutrophil % 70.5 % (47-70); Platelet Count 216 K/mm3 (150-450); RBC Distribution Width CV 14.6 % (11.6-14.6); RBC Distribution Width SD 43.5 fl (35.1-43.9); Red Blood Count 4.09 M/mm3 (4.2-5.4); White Blood Count 13.1 K/mm3 (4.4-11.0)
[2019-09-14 01:53] LABS: Color, Urine Yellow (Yellow); Glucose, Dipstick Normal (Normal); Ketone-Dipstick Negative (Negative); Leukocyte Esterase-Dipstick Negative /ul (Negative); Nitrite-Dipstick Negative (Negative); Occult Blood-Urine 25 /ul (Negative); Protein-Dipstick 100 mg/dl (Negative); Specific Gravity, Urine 1.015 (1.002-1.030); Urine Bilirubin Dipstick Negative (Negative); Urine Clarity Clear (Clear); Urine Urobilinogen Normal (Normal); Urine pH 6.5 (5.0 - 8.0)
[2019-09-14 02:04] LABS: Protein, Urine (Random) 80.5 mg/dL (<11.9); Protein:Creat Ratio 739 mg/g CRE (0-200)
[2019-09-14 02:05] LABS: Squamous Epithelial Cells - UA 10-25 SEEN /hpf (5-10)
[2019-09-14 02:06] LABS: Bacteria 1+ /hpf (None Seen); Red Blood Cells-Urine 0-5 SEEN /hpf (0-5); White Blood Cells 0-5 SEEN /hpf (0-5); Yeast-Urine RARE /hpf (None Seen)
[2019-09-14 02:17] LABS: ALB/GLOB Ratio 0.7 RATIO (0.9-2.4); AST(SGOT) 10 U/L (15-37); Alanine Aminotransfer ALT/SGPT 18 U/L (13-56); Albumin, Serum 2.6 g/dL (3.2-5.0); Alkaline Phosphatase 138 U/L (45-117); Anion Gap 7 (5-15); BUN 8 mg/dL (7-18); BUN/Creat Ratio 8.8 RATIO (10-20); Calcium,Total 9.2 mg/dL (8.5-10.1); Chloride 109 mmol/L (98-107); EST Glomerular Filtration Rate 78 mL/min (>60); Est Glom Filt Rate - Afr Amer 95 mL/min (>60); Globulin 3.8 g/dL (2.2-4.2); Glucose 118 mg/dL (74-106); Potassium 3.3 mmol/L (3.5-5.1); Protein, Total 6.4 g/dL (6.4-8.2); Sodium Level 139 mmol/L (136-145)
[2019-09-14] MEDS: Morphine 4 MG/ML Syringe IV (02:44)
[2019-09-14] MEDS: Cephalexin 500 MG Capsule PO (02:44)
[2019-09-14] MEDS: Lactated Ringers 1,000 ML 999 ML IV (02:44)
--- NOTE | 2019-09-14 03:56 | US_ITS ---
STUDY: RENAL ULTRASOUND - COMPLETE REASON FOR EXAM: Female, 29 years old. LOWER BACK PAIN -- 30 WEEKS PREG TECHNIQUE: Ultrasound evaluation of the kidneys was performed with real-time and static alejandre-scale imaging. COMPARISON: None. FINDINGS: RIGHT KIDNEY: Normal location of the right kidney, which is normal in size. The right kidney measures 12.1 cm x 4.9 cm x 6.2 cm. There is a normal cortex of the right kidney. The renal cortex measures 2.0 cm. There is no right renal mass or cyst. There is a 9 mm x 8 mm x 7 mm nonobstructive intrarenal calculus. There is no right hydronephrosis. DISTAL RIGHT URETER: There is non-visualization of the distal right ureter. There is no demonstrated right ureterovesical junction calculus. There is no demonstrated right ureteral jet. LEFT KIDNEY: Normal location of the left kidney, which is normal in size. The left kidney measures 13.8 cm x 6 cm x 6.5 cm. There is a normal cortex of the left kidney. The renal cortex measures 1.7 cm. There is a 1.6 cm x 1.3 cm x 1.5 cm cyst. There is a 9 mm x 9 mm x 7 mm nonobstructive intrarenal calculus. There is no left hydronephrosis. DISTAL LEFT URETER: There is non-visualization of the distal left ureter. There is no demonstrated left ureterovesical junction calculus. There is no demonstrated left ureteral jet. BLADDER: The bladder is empty at the time of the examination. US/Kidney and Bladder IMPRESSION: Small bilateral nonobstructive intrarenal calculi. Small left renal cyst. Electronically Signed: Matti Scherer, at 11:03 EST , Service support ,
[2019-09-14] MEDS: Lactated Ringers 1,000 ML 200 ML IV (04:19)
[2019-09-14] MEDS: fentaNYL 100 MCG/2 ML Ampul IV (04:20)
--- NOTE | 2019-09-14 07:02 | US_ITS ---
STUDY: SECOND AND THIRD TRIMESTER OBSTETRICAL ULTRASOUND REASON FOR EXAM: Female, 29 years old GROWTH LMP: February 15, 2019. TECHNIQUE: Transabdominal TECHNICAL QUALITY: Adequate. PRIOR ULTRASOUND: None. FINDINGS: There is a single intrauterine fetus. The fetus is in a cephalic presentation. There is demonstrated cardiac activity with a heart rate of 132 bpm. There is a normal amniotic fluid volume. The largest amniotic fluid pocket measures 4.6 cm. The amniotic fluid index (RASHAAD) is 12.0 cm. The placenta is fundal in location. There are Grade 1 placental changes. The cervix measures 3.8 cm in length. The bilateral adnexal regions are normal. BIOMETRY: BPD: 7.9 cm: 31 weeks, 5 days HC: 28.9 cm: 31 weeks, 6 days AC: 27.19 cm: 31 weeks, 2 days FL: 5.77 cm: 30 weeks, 2 days CI: 82% FL/BPD: 73% FL/HC: FL/AC: 21% HC/AC: 1.06 age by current US: 31 weeks, 2 days. SU by current US: November 14, 2019. Estimated weight: 1686 grams, +/- 246 grams, 69 %. Age by LMP: 30 weeks, 1 days. SU by LMP: November 22, 2019. US/OB Limited With Biometrics IMPRESSION: Single live intrauterine gestation with a mean gestational age of 31 weeks and 2 days. Electronically Signed: Matti Scherer, at 9:41 EST , Service support ,
[2019-09-14] MEDS: Labetalol 200 MG Tablet PO (07:38)
[2019-09-14] MEDS: Betamethasone/Betamethasone 30 MG/5 ML Vial 12 MG IM (07:39)
--- NOTE | 2019-09-14 11:10 | NURSING ---
This nurse assumed pt care at 0930. Report received from HOLDEN Juarez charge. It was noted that scheduled medication Celestone and Trandate were not given by prior nurse because med's were not scanned in computer but pt states that they were given by HOLDEN Meadows. fire extinguisher charger stating she called Abdiel and left a message stating to call unit [facility] to clarify that meds were given. stating Abdiel stated in report that she gave Celestone and trandate. stated to not hold up dc or do not give medications. Still waiting on results of renal report prior to dc.
--- NOTE | 2019-09-14 12:04 | OB.TRI.NOTE ---
- Problem List (1) Anxiety Status: Acute Comment: blossom, encouraged counseling (2) Kidney stone complicating Status: Acute History of Present Illness Date of Service: 09/14/19 Was patient seen by the physician?: Yes Reason For Visit: R/O LABOR Date of Service: 09/14/19 History of Present Illness: 29 yo presents with significant lower back pain, dysuria. renal ultrasound shows kidney stones. pain controlled with IVFs and IV pain medicine. she dneies any ct vb or loss of fluid. Mom's Current Diagnoses Other acute postprocedural pain 09/14/19 Mom's Microbiology 09/14/19 01:25 Urine, Clean Catch Urine Culture - Final Mixed Gram Pos & Gram Neg Org Mom's Labs & Results 09/14/19 09/14/19 09/14/19 01:25 01:25 01:25 WBC 13.1 H RBC 4.09 L Hgb 11.5 L Hct 34.0 L MCV 83.1 MCH 28.1 MCHC 33.8 RDW Std Deviation 43.5 RDW Coeff of Kamala 14.6 Plt Count 216 MPV 9.8 Immature Gran % (Auto) 2.300 H Neut % (Auto) 70.5 H Lymph % (Auto) 17.0 L Saline % (Auto) 6.7 Eos % (Auto) 3.1 Baso % (Auto) 0.4 Absolute Neuts (auto) 9.2 H Absolute Lymphs (auto) 2.23 Nucleated RBC % 0 Sodium 139 Potassium 3.3 L Chloride 109 H Carbon Dioxide 23.0 Anion Gap 7 BUN 8 Creatinine 0.90 Estim Creat Clear Calc 76.30 Est GFR (MDRD) Af Amer 95 Est GFR (MDRD) Non-Af 78 BUN/Creatinine Ratio 8.8 L Glucose 118 H Calcium 9.2 Total Bilirubin 0.20 AST 10 L ALT 18 Alkaline Phosphatase 138 H Total Protein 6.4 Albumin 2.6 L Globulin 3.8 Albumin/Globulin Ratio 0.7 L Urine Color Yellow Urine Clarity Clear Urine pH 6.5 Ur Specific [place] 1.015 Urine Protein 100 H Urine Glucose (UA) Normal Urine Ketones Negative Urine Occult Blood 25 H Urine Nitrite Negative Urine Bilirubin Negative Urine Urobilinogen Normal Ur Leukocyte Esterase Negative Urine RBC 0-5 SEEN Urine WBC 0-5 SEEN Ur Squamous Epith Cells 10-25 SEEN Urine Bacteria 1+ Urine Mucus 0 SEEN Urine Yeast RARE U Random Total Protein Urine Creatinine Protein/Creatinin Ratio 09/14/19 01:25 WBC RBC Hgb Hct MCV MCH MCHC RDW Std Deviation RDW Coeff of Kamala Plt Count MPV Immature Gran % (Auto) Neut % (Auto) Lymph % (Auto) Saline % (Auto) Eos % (Auto) Baso % (Auto) Absolute Neuts (auto) Absolute Lymphs (auto) Nucleated RBC % Sodium Potassium Chloride Carbon Dioxide Anion Gap BUN Creatinine Estim Creat Clear Calc Est GFR (MDRD) Af Amer Est GFR (MDRD) Non-Af BUN/Creatinine Ratio Glucose Calcium Total Bilirubin AST ALT Alkaline Phosphatase Total Protein Albumin Globulin Albumin/Globulin Ratio Urine Color Urine Clarity Urine pH Ur Specific [place] Urine Protein Urine Glucose (UA) Urine Ketones Urine Occult Blood Urine Nitrite Urine Bilirubin Urine Urobilinogen Ur Leukocyte Esterase Urine RBC Urine WBC Ur Squamous Epith Cells Urine Bacteria Urine Mucus Urine Yeast U Random Total Protein 80.5 H Urine Creatinine 109.00 Protein/Creatinin Ratio 739 H Social History Alleged father Shayan Hx Smoking No Smoking Status Never smoker Allergies lisinopril Allergy (Verified 09/14/19 01:42) Other COUGH - Pertinent Past Medical History Medical History: Past Medical History (Last Reviewed 09/01/19 @ 16:06 by Manjula Anderson) Anxiety (Acute) celexa, encouraged counseling Hypertension (Resolved) depression (Resolved) Seasonal allergies (Resolved) Surgical History: Past Surgical History (Last Reviewed 09/01/19 @ 16:06 by Manjula Anderson) S/P tonsillectomy S/p bilateral carpal tunnel release Laboratory Studies: Laboratory Tests 09/14/19 09/14/19 09/14/19 Range/Units 01:25 01:25 01:25 WBC (4.4-11.0) K/mm3 RBC (4.2-5.4) M/mm3 Hgb (12.0-15.0) g/dL Hct (37-47) % MCV (81-99) fL MCH (27.0-32.0) pg MCHC (32-36) g/dL RDW Std Deviation (35.1-43.9) fl RDW Coeff of Kamala (11.6-14.6) % Plt Count (150-450) K/mm3 MPV (6.2-12.0) fl Immature Gran % (Auto) (0.0-0.9) % Neut % (Auto) (47-70) % Lymph % (Auto) (19-41) % Saline % (Auto) (0-10) % Eos % (Auto) (0-5) % Baso % (Auto) (0-1) % Absolute Neuts (auto) (2.0-7.7) X10^3/uL Absolute Lymphs (auto) (0.83-4.51) X10^3/uL Nucleated RBC % (0-5) % Sodium 139 (136-145) mmol/L Potassium 3.3 L (3.5-5.1) mmol/L Chloride 109 H (98-107) mmol/L Carbon Dioxide 23.0 (21.0-32.0) mmol/L Anion Gap 7 (5-15) BUN 8 (7-18) mg/dL Creatinine 0.90 (0.55-1.02) mg/dL Estim Creat Clear Calc 76.30 ml/min Est GFR (MDRD) Af Amer 95 (>60) mL/min Est GFR (MDRD) Non-Af 78 (>60) mL/min BUN/Creatinine Ratio 8.8 L (10-20) RATIO Glucose 118 H (74-106) mg/dL Calcium 9.2 (8.5-10.1) mg/dL Total Bilirubin 0.20 (0.20-1.00) mg/dL AST 10 L (15-37) U/L ALT 18 (13-56) U/L Alkaline Phosphatase 138 H (45-117) U/L Total Protein 6.4 (6.4-8.2) g/dL Albumin 2.6 L (3.2-5.0) g/dL Globulin 3.8 (2.2-4.2) g/dL Albumin/Globulin Ratio 0.7 L (0.9-2.4) RATIO Urine Color Yellow (Yellow) Urine Clarity Clear (Clear) Urine pH 6.5 (5.0 - 8.0) Ur Specific [place] 1.015 (1.002-1.030) Urine Protein 100 H (Negative) mg/dl Urine Glucose (UA) Normal (Normal) mg/dl Urine Ketones Negative (Negative) mg/dl Urine Occult Blood 25 H (Negative) /ul Urine Nitrite Negative (Negative) Urine Bilirubin Negative (Negative) mg/dL Urine Urobilinogen Normal (Normal) mg/dl Ur Leukocyte Esterase Negative (Negative) /ul Urine RBC 0-5 SEEN (0-5) /hpf Urine WBC 0-5 SEEN (0-5) /hpf Ur Squamous Epith Cells 10-25 SEEN (5-10) /hpf Urine Bacteria 1+ (None Seen) /hpf Urine Mucus 0 SEEN (<or=2+) /hpf Urine Yeast RARE (None Seen) /hpf U Random Total Protein 80.5 H (<11.9) mg/dL Urine Creatinine 109.00 (NO RANGE EST.) mg/dL Protein/Creatinin Ratio 739 H (0-200) mg/g CRE 09/14/19 Range/Units 01:25 WBC 13.1 H (4.4-11.0) K/mm3 RBC 4.09 L (4.2-5.4) M/mm3 Hgb 11.5 L (12.0-15.0) g/dL Hct 34.0 L (37-47) % MCV 83.1 (81-99) fL MCH 28.1 (27.0-32.0) pg MCHC 33.8 (32-36) g/dL RDW Std Deviation 43.5 (35.1-43.9) fl RDW Coeff of Kamala 14.6 (11.6-14.6) % Plt Count 216 (150-450) K/mm3 MPV 9.8 (6.2-12.0) fl Immature Gran % (Auto) 2.300 H (0.0-0.9) % Neut % (Auto) 70.5 H (47-70) % Lymph % (Auto) 17.0 L (19-41) % Saline % (Auto) 6.7 (0-10) % Eos % (Auto) 3.1 (0-5) % Baso % (Auto) 0.4 (0-1) % Absolute Neuts (auto) 9.2 H (2.0-7.7) X10^3/uL Absolute Lymphs (auto) 2.23 (0.83-4.51) X10^3/uL Nucleated RBC % 0 (0-5) % Sodium (136-145) mmol/L Potassium (3.5-5.1) mmol/L Chloride (98-107) mmol/L Carbon Dioxide (21.0-32.0) mmol/L Anion Gap (5-15) BUN (7-18) mg/dL Creatinine (0.55-1.02) mg/dL Estim Creat Clear Calc ml/min Est GFR (MDRD) Af Amer (>60) mL/min Est GFR (MDRD) Non-Af (>60) mL/min BUN/Creatinine Ratio (10-20) RATIO Glucose (74-106) mg/dL Calcium (8.5-10.1) mg/dL Total Bilirubin (0.20-1.00) mg/dL AST (15-37) U/L ALT (13-56) U/L Alkaline Phosphatase (45-117) U/L Total Protein (6.4-8.2) g/dL Albumin (3.2-5.0) g/dL Globulin (2.2-4.2) g/dL Albumin/Globulin Ratio (0.9-2.4) RATIO Urine Color (Yellow) Urine Clarity (Clear) Urine pH (5.0 - 8.0) Ur Specific [place] (1.002-1.030) Urine Protein (Negative) mg/dl Urine Glucose (UA) (Normal) mg/dl Urine Ketones (Negative) mg/dl Urine Occult Blood (Negative) /ul Urine Nitrite (Negative) Urine Bilirubin (Negative) mg/dL Urine Urobilinogen (Normal) mg/dl Ur Leukocyte Esterase (Negative) /ul Urine RBC (0-5) /hpf Urine WBC (0-5) /hpf Ur Squamous Epith Cells (5-10) /hpf Urine Bacteria (None Seen) /hpf Urine Mucus (<or=2+) /hpf Urine Yeast (None Seen) /hpf U Random Total Protein (<11.9) mg/dL Urine Creatinine (NO RANGE EST.) mg/dL Protein/Creatinin Ratio (0-200) mg/g CRE Review of Systems Constitutional: Denies: Fever, Malaise Eyes: Denies: Blurred vision, Vision Change HEENT: Denies: Head Aches, Visual Changes Cardiovascular: Denies: Chest Pain, Palpitations Respiratory: Denies: Cough, Shortness of Breath, Wheezing Gastrointestinal: Reports: Nausea. Denies: Abdominal Pain, Diarrhea, Vomiting Genitourinary: Reports: Dysuria. Denies: Hematuria Musculoskeletal: Reports: Back Pain. Denies: Joint Pain, Muscle pain Skin: Denies: Lesions, Rash Neurological: Denies: Blurred vision, Focal weakness, Headaches Psychiatric: Denies: Anxiety, Depression Endocrine: Denies: Heat/ Cold Intolerance Hematologic/ Lymphatic: Denies: Easy Bruising, Easy Bleeding Physical Exam General: Alert, Cooperative, No apparent distress HEENT: Atraumatic, Normocephalic. Negative for: Thyromegaly, Lymphadenopathy Cardiovascular: Regular rate Lungs: Normal air movement Abdomen: Soft, Non Tender, Gravid Neurological: Deep Tendon Reflexes 2+/4 and Symmetrical, Neuro grossly intact. Negative for: Clonus VETERINARY MANAGER: Normal external genitalia. Negative for: Vulvar lesions Estimated gestational size: Appropriate for gestational size NST - FHR Rate Baby A Baseline: 150 Variability:: Moderate Accelerations:: 15 x 15 Decelerations:: None NST Reactive:: Yes FHR Category:: Category I Uterine Activity:: no regular Impression/Plan 29 yo presents with low back pain, diagnosed with nephrolithiasis plan IVFs and pain meds, growth scan WNL and renal ultrasound shows kidney stones. dc home pain meds and antibiotics Multi Select Codes - Visit Charges Observation E&M Codin Observ/hosp same date L3 - Urinary/Genital Urinary/Genital CPT Codes: 01734-29 non-stress test Interp
== END 2019-09-14 12:05 | disposition home or self-care (01) ==
LOC: WPOUT 01:15 → WP 01:16 → OBT 08:31
PROVIDERS: PCP Family Medicine; Visit Provider Obstetrics & Gynecology
DX: O99.89 Other specified diseases and conditions complicating pregnancy, childbirth and the puerperium (principal); N20.0 Calculus of kidney; O99.343 Other mental disorders complicating pregnancy, third trimester; F41.9 Anxiety disorder, unspecified; Z3A.31 31 weeks gestation of pregnancy
CPT/HCPCS: 96361 ×6; 96374; 36415; 59025; 59050; 76770; 76816; 80053; 81001; 82570; 84156; 85025; 87086; 87088; 96372; 99218; J7120; A4216; G0378; J0702

== ENCOUNTER 2019-09-15 08:02 | Outpatient (CLI) | payer OTHER, SELFPAY ==
[2019-09-14 01:33] VITALS: BMI 41.1
[2019-09-15] MEDS: Betamethasone/Betamethasone 30 MG/5 ML Vial 12 MG IM (08:27)
--- NOTE | 2019-11-01 06:51 | OB.TRI.PN ---
Progress Notes Date of Service: 09/15/19 Progress Note: celestone injection secondary to prematurity and elevated blood pressures
== END 2019-09-15 08:30 | disposition home or self-care (01) ==
PROVIDERS: PCP Family Medicine; Referring Provider Obstetrics & Gynecology; Visit Provider Obstetrics & Gynecology
DX: O26.899 Other specified pregnancy related conditions, unspecified trimester (principal); R03.0 Elevated blood-pressure reading, without diagnosis of hypertension; Z3A.00 Weeks of gestation of pregnancy not specified
CPT/HCPCS: 96372; 99218; G0378; J0702

== ENCOUNTER → 2019-09-25 12:25 | Outpatient (CLI) | payer OTHER, SELFPAY ==
[2019-09-01 16:06] VITALS: BMI 41.8
[2019-09-14 01:33] VITALS: BMI 41.1
--- NOTE | 2019-09-25 12:26 | US_ITS ---
STUDY: SECOND AND THIRD TRIMESTER OBSTETRICAL ULTRASOUND - LIMITED REASON FOR EXAM: Female, 29 years old RASHAAD LMP: February 14, 2019. PRIOR ULTRASOUND: Comparison is made with prior study dated September 14, 2019. TECHNIQUE: Transvaginal TECHNICAL QUALITY: Adequate. FINDINGS: There is a single intrauterine fetus. The fetus is in a cephalic presentation. There is demonstrated cardiac activity with a heart rate of 141 bpm. There is a normal amniotic fluid volume. The largest amniotic fluid pocket measures 6.7 cm. The amniotic fluid index (RASHAAD) is 20.3 cm. This is upper limits of normal. The placenta is fundal in location. There are Grade 1 placental changes. The cervix measures 4.6 cm in length. BIOMETRY: Age by LMP: 31 weeks, 5 days. SU by LMP: November 22, 2019.. US/OB Limited (No Biometrics) IMPRESSION: The amniotic fluid measures upper limits of normal. Electronically Signed: Matti Scherer, at 13:03 EST , Service support ,
== END ==
PROVIDERS: PCP Family Medicine; Referring Provider Obstetrics & Gynecology; Visit Provider Obstetrics & Gynecology
DX: O09.90 Supervision of high risk pregnancy, unspecified, unspecified trimester (principal); Z3A.00 Weeks of gestation of pregnancy not specified
CPT/HCPCS: 76815

== ENCOUNTER → 2019-09-27 09:53 | Outpatient (CLI) | payer OTHER, SELFPAY ==
[2019-09-27 09:52] VITALS: BMI 41.1
[2019-09-27 11:50] LABS: Hepatitis B Surface Antigen Non-Reactive (Nonreactive)
== END ==
PROVIDERS: PCP Family Medicine; Referring Provider Nurse Practitioner Women's Health; Visit Provider Nurse Practitioner Women's Health
DX: O09.90 Supervision of high risk pregnancy, unspecified, unspecified trimester (principal); Z3A.00 Weeks of gestation of pregnancy not specified
CPT/HCPCS: 87340

== ENCOUNTER → 2019-10-02 12:40 | Outpatient (CLI) | payer OTHER, SELFPAY ==
[2019-09-01 16:06] VITALS: BMI 41.8
[2019-09-27 09:52] VITALS: BMI 41.1
--- NOTE | 2019-10-02 12:41 | US_ITS ---
STUDY: SECOND AND THIRD TRIMESTER OBSTETRICAL ULTRASOUND - LIMITED REASON FOR EXAM: Female, 29 years old RASHAAD LMP: 32 weeks 5 days for an estimated due date of 11/22/2019 PRIOR ULTRASOUND: 09/25/2019 TECHNIQUE: Serological and transverse scans of the maternal pelvis were performed utilizing real-time sector scanner. TECHNICAL QUALITY: Adequate. FINDINGS: There is a single intrauterine fetus is in a cephalic presentation. There is demonstrated cardiac activity with a heart rate of 152 bpm. There is a normal amniotic fluid volume. The largest amniotic fluid pocket measures 14.9 cm. The cervix measures 3.3 cm in length, with the cervical os closed. The placenta is predominantly fundal in location. US/OB Limited (No Biometrics) IMPRESSION: A single fetus is noted in cephalic presentation with gestational age based on the LMP of 32 weeks 5 days. Electronically Signed: Ronald Kern, at 13:09 EST Tel , Service support ,
== END ==
PROVIDERS: PCP Family Medicine; Referring Provider Obstetrics & Gynecology; Visit Provider Obstetrics & Gynecology
DX: O09.90 Supervision of high risk pregnancy, unspecified, unspecified trimester (principal); O10.919 Unspecified pre-existing hypertension complicating pregnancy, unspecified trimester; Z3A.00 Weeks of gestation of pregnancy not specified
CPT/HCPCS: 76815

== ENCOUNTER → 2019-10-09 12:44 | Outpatient (CLI) | payer OTHER, SELFPAY ==
[2019-09-01 16:06] VITALS: BMI 41.8
[2019-10-05 15:42] VITALS: BMI 42.3
--- NOTE | 2019-10-09 12:50 | US_ITS ---
STUDY: SECOND AND THIRD TRIMESTER OBSTETRICAL ULTRASOUND REASON FOR EXAM: Female, 29 years old GROWTH- HTN LMP: February 15, 2019. TECHNIQUE: Transabdominal TECHNICAL QUALITY: Adequate. PRIOR ULTRASOUND: Comparison is made with prior study dated October 02, 2019. FINDINGS: There is a single intrauterine fetus. The fetus is in a cephalic presentation. There is demonstrated cardiac activity with a heart rate of 140 bpm. There is a normal amniotic fluid volume. The largest amniotic fluid pocket measures 7.3 cm. The amniotic fluid index (RASHAAD) is 21.8 cm. The placenta is posterior in location and is not low lying. There are Grade 1 placental changes. The cervix measures 3.3 cm in length. The bilateral adnexal regions are normal. BIOMETRY: BPD: 9.0 cm: 36 weeks, 2 days HC: 32.4 cm: 36 weeks, 5 days AC: 30.5 cm: 34 weeks, 4 days FL: 6.5 cm: 33 weeks, 4 days CI: 81% FL/BPD: 73% FL/HC: FL/AC: 21% HC/AC: 1.06 age by current US: 35 weeks, 2 days. SU by current US: November 11, 2019. Estimated weight: 2477 grams, +/- 362 grams, 71 %. age by prior US: 34 weeks, 6 days. SU by prior US: November 14, 2019. Age by LMP: 33 weeks, 5 days. SU by LMP: November 22, 2019. US/OB Limited With Biometrics IMPRESSION: Single live uterine gestation with a mean gestational age of 34 weeks and 6 days. The measurements obtained today fall within the normal expected range. Electronically Signed: Matti Scherer, at 16:00 EST , Service support ,
== END ==
LOC: US 12:44
PROVIDERS: PCP Family Medicine; Referring Provider Obstetrics & Gynecology; Visit Provider Obstetrics & Gynecology
DX: O09.90 Supervision of high risk pregnancy, unspecified, unspecified trimester (principal); Z3A.00 Weeks of gestation of pregnancy not specified
CPT/HCPCS: 76816

== ENCOUNTER → 2019-10-19 14:02 | Outpatient (CLI) | payer OTHER, SELFPAY ==
[2019-09-01 16:06] VITALS: BMI 41.8
[2019-10-16 13:07] VITALS: BMI 41.1
--- NOTE | 2019-10-19 14:08 | US_ITS ---
STUDY: SECOND AND THIRD TRIMESTER OBSTETRICAL ULTRASOUND REASON FOR EXAM: Female, 29 years old. RASHAAD. LMP: February 15, 2019. TECHNIQUE: Transabdominal TECHNICAL QUALITY: Adequate. PRIOR ULTRASOUND: September 14, 2019, September 25, 2019, October 02, 2019, October 09, 2019 and October 20, 2019. FINDINGS: There is a single intrauterine fetus. The fetus is in a cephalic presentation. There is demonstrated cardiac activity with a heart rate of 145 bpm. There is a normal amniotic fluid volume. The largest amniotic fluid pocket measures 5.6 by cm. The amniotic fluid index (RASHAAD) is 18.56 cm. The placenta is posterior in location and is not low lying. There are Grade 2 placental changes. The cervix measures 3.8 cm in length. The adnexal regions are not visualized. age by prior US: 36 weeks, 2 days. SU by prior US: November 14, 2019. Age by LMP: 35 weeks, 1 days. SU by LMP: November 22, 2019. US/OB Limited (No Biometrics) IMPRESSION: 1. Ultrasound performed for RASHAAD only. The RASHAAD is 18.56 cm. 2. Live single intrauterine in cephalic presentation. Expected gestational age by initial ultrasound is 36 weeks, 2 days. 3. Posterior grade 2 placenta. Electronically Signed: Gallito Baker DO at 18:03 EDT Tel [phone], Service support ,
== END ==
PROVIDERS: PCP Family Medicine; Referring Provider Obstetrics & Gynecology; Visit Provider Obstetrics & Gynecology
DX: Z34.90 Encounter for supervision of normal pregnancy, unspecified, unspecified trimester (principal)
CPT/HCPCS: 76815

== ENCOUNTER 2019-10-20 12:07 | Outpatient (CLI) | payer OTHER, SELFPAY ==
[2019-10-16 13:07] VITALS: BMI 41.1
[2019-10-20 12:16] VITALS: BP 137/90; PULSE 100; TEMP 36.9
[2019-10-20 12:17] VITALS: PULSE 98; O2SAT 99; BMI 41.1
--- NOTE | 2019-10-20 12:44 | US_ITS ---
STUDY: OBSTETRICAL ULTRASOUND - BIOPHYSICAL PROFILE REASON FOR EXAM: Female, 29 years old. Decreased movement. LMP: 02/15/2019 PRIOR ULTRASOUND: 10/19/2019 TECHNIQUE: Transabdominal ultrasound evaluation was performed. FINDINGS: There is a single intrauterine fetus. The fetus is in a cephalic presentation. There is demonstrated cardiac activity with a heart rate of 147 bpm. There is a normal amniotic fluid volume. The amniotic fluid index (RASHAAD) is 16.9 cm. The placenta is posterior in location and is not low lying. BIOPHYSICAL PROFILE: Breathing Movements (FBM): 2 Gross Body Movements (GBM): 2 Tone (FT): 2 Amniotic Fluid Volume (AFV): 2 TOTAL SCORE: 8 / 8 US/Biophysical Prof W/O Non Stres IMPRESSION: Normal biophysical profile of 8/8. Electronically Signed: Edu Crawford, at 10:04 EDT Tel , Service support ,
--- NOTE | 2019-10-20 16:59 | OB.TRI.PN_ITS ---
Progress Notes Date of Service: 10/20/19 Progress Note: fht secondary to decreased movement FHT: 130 Moderate variability reactive no decelerations category I tracing [place]: irregular Contractions bpp 10/10 reassuring dc home Multi Select Codes - Urinary/Genital Urinary/Genital CPT Codes: 48539-16 non-stress test Interp
== END 2019-10-20 14:45 | disposition home or self-care (01) ==
LOC: WPOUT 12:11 → WP 12:11
PROVIDERS: PCP Family Medicine; Referring Provider Obstetrics & Gynecology; Visit Provider Obstetrics & Gynecology
DX: O36.8190 Decreased fetal movements, unspecified trimester, not applicable or unspecified (principal); Z3A.00 Weeks of gestation of pregnancy not specified
CPT/HCPCS: 59025; 59050; 76819; 99218; G0378

== ENCOUNTER 2019-10-23 13:25 | Outpatient (CLI) | payer OTHER, SELFPAY ==
[2019-09-01 16:06] VITALS: BMI 41.8
[2019-10-23] VITALS (7 sets, daily range): BP systolic 121–137; BP diastolic 68–80; PULSE 88–103; TEMP 37.3; O2SAT 98; BMI 41.3
--- NOTE | 2019-10-23 12:35 | US_ITS ---
STUDY: SECOND AND THIRD TRIMESTER OBSTETRICAL ULTRASOUND - LIMITED REASON FOR EXAM: Female, 29 years old rashaad LMP: February 15, 2019. PRIOR ULTRASOUND: Comparison is made with prior study dated October 20, 2019. TECHNIQUE: Transabdominal and Transvaginal TECHNICAL QUALITY: Adequate. FINDINGS: There is a single intrauterine fetus. The fetus is in a cephalic presentation. There is demonstrated cardiac activity with a heart rate of 152 bpm. There is a normal amniotic fluid volume. The largest amniotic fluid pocket measures 6.8 cm. The amniotic fluid index (RASHAAD) is 14.4 cm. The placenta is fundal in location. There are Grade 2 placental changes. The cervix measures 4.0 cm in length. Age by LMP: 35 weeks, 5 days. SU by LMP: October 22, 2019. US/OB Limited (No Biometrics) IMPRESSION: Normal amniotic fluid. Electronically Signed: Matti Scherer, at 15:38 EDT , Service support ,
[2019-10-23 13:49] LABS: Absolute Lymphocyte Count 1.53 X10^3/uL (0.83-4.51); Absolute Neutrophil Count 7.4 X10^3/uL (2.0-7.7); Basophil# 0.07 X10^3/uL; Basophil% 0.7 % (0-1); Eosinophil# 0.31 X10^3/uL; Hematocrit 35.4 % (37-47); Hemoglobin 11.9 g/dL (12.0-15.0); Lymphocyte # 1.53 X10^3/ul (4.0); Lymphocyte % 14.8 % (19-41); Mean Corp Hgb Conc 33.6 g/dL (32-36); Mean Corpuscular Hgb 28.2 pg (27.0-32.0); Mean Corpuscular Volume 83.9 fL (81-99); Mean Platelet Vol. 10.3 fl (6.2-12.0); Monocyte# 0.66 X10^3/uL; Monocyte% 6.4 % (0-10); NRBC Flagged by Analyzer 0 % (0-5); Neutrophil # 7.44 X10^3/uL (2.7-7.7); Neutrophil % 71.7 % (47-70); Platelet Count 201 K/mm3 (150-450); RBC Distribution Width CV 14.6 % (11.6-14.6); RBC Distribution Width SD 44.4 fl (35.1-43.9); Red Blood Count 4.22 M/mm3 (4.2-5.4); White Blood Count 10.4 K/mm3 (4.4-11.0)
[2019-10-23 14:19] LABS: ALB/GLOB Ratio 0.6 RATIO (0.9-2.4); AST(SGOT) 10 U/L (15-37); Alanine Aminotransfer ALT/SGPT 13 U/L (13-56); Albumin, Serum 2.3 g/dL (3.2-5.0); Alkaline Phosphatase 264 U/L (45-117); Anion Gap 8 (5-15); BUN 5 mg/dL (7-18); BUN/Creat Ratio 7.7 RATIO (10-20); Calcium,Total 8.8 mg/dL (8.5-10.1); Chloride 113 mmol/L (98-107); Creatinine, Serum 0.65 mg/dL (0.55-1.02); EST Glomerular Filtration Rate 115 mL/min (>60); Est Glom Filt Rate - Afr Amer 139 mL/min (>60); Estimated Creatinine Clearance 105.64 ml/min; Glucose 148 mg/dL (74-106); Potassium 3.2 mmol/L (3.5-5.1); Protein, Total 6.3 g/dL (6.4-8.2); Sodium Level 141 mmol/L (136-145)
[2019-10-23 14:36] LABS: Protein, Urine (Random) 66.4 mg/dL (<11.9); Protein:Creat Ratio 711 mg/g CRE (0-200)
--- NOTE | 2019-11-01 07:16 | OB.TRI.PN ---
Progress Notes Date of Service: 10/23/19 Progress Note: patient seen for rule out SI preeclampsia labs stable FHT: 140 Moderate variability reactive no decelerations category I tracing [place]: irregular Contractions dc home preeclampsia precautions and fu in office as scheduled Laboratory Studies: Laboratory Tests 10/23/19 10/23/19 10/23/19 Range/Units 13:20 12:27 12:27 WBC 10.4 (4.4-11.0) K/mm3 RBC 4.22 (4.2-5.4) M/mm3 Hgb 11.9 L (12.0-15.0) g/dL Hct 35.4 L (37-47) % MCV 83.9 (81-99) fL MCH 28.2 (27.0-32.0) pg MCHC 33.6 (32-36) g/dL RDW Std Deviation 44.4 H (35.1-43.9) fl RDW Coeff of Kamala 14.6 (11.6-14.6) % Plt Count 201 (150-450) K/mm3 MPV 10.3 (6.2-12.0) fl Immature Gran % (Auto) 3.400 H (0.0-0.9) % Neut % (Auto) 71.7 H (47-70) % Lymph % (Auto) 14.8 L (19-41) % [place] % (Auto) 6.4 (0-10) % Eos % (Auto) 3.0 (0-5) % Baso % (Auto) 0.7 (0-1) % Absolute Neuts (auto) 7.4 (2.0-7.7) X10^3/uL Absolute Lymphs (auto) 1.53 (0.83-4.51) X10^3/uL Nucleated RBC % 0 (0-5) % Sodium 141 (136-145) mmol/L Potassium 3.2 L (3.5-5.1) mmol/L Chloride 113 H (98-107) mmol/L Carbon Dioxide 20.0 L (21.0-32.0) mmol/L Anion Gap 8 (5-15) BUN 5 L (7-18) mg/dL Creatinine 0.65 (0.55-1.02) mg/dL Estim Creat Clear Calc 105.64 ml/min Est GFR (MDRD) Af Amer 139 (>60) mL/min Est GFR (MDRD) Non-Af 115 (>60) mL/min BUN/Creatinine Ratio 7.7 L (10-20) RATIO Glucose 148 H (74-106) mg/dL Calcium 8.8 (8.5-10.1) mg/dL Total Bilirubin 0.30 (0.20-1.00) mg/dL AST 10 L (15-37) U/L ALT 13 (13-56) U/L Alkaline Phosphatase 264 H (45-117) U/L Total Protein 6.3 L (6.4-8.2) g/dL Albumin 2.3 L (3.2-5.0) g/dL Globulin 4.0 (2.2-4.2) g/dL Albumin/Globulin Ratio 0.6 L (0.9-2.4) RATIO U Random Total Protein 66.4 H (<11.9) mg/dL Urine Creatinine 93.40 (NO RANGE EST.) mg/dL Protein/Creatinin Ratio 711 H (0-200) mg/g CRE Multi Select Codes - Urinary/Genital Urinary/Genital CPT Codes: 00816-84 non-stress test Interp
== END 2019-10-23 15:25 | disposition home or self-care (01) ==
LOC: OPUS 13:35 → WPOUT 13:37 → WP 13:38
PROVIDERS: Nurse Practitioner Women's Health; PCP Family Medicine; Referring Provider Obstetrics & Gynecology; Visit Provider Obstetrics & Gynecology
DX: Z03.79 Encounter for other suspected maternal and fetal conditions ruled out (principal)
CPT/HCPCS: 36415; 59025; 59050; 76815; 76817; 80053; 82570; 84156; 85025; 99218; G0378

== ENCOUNTER → 2019-10-27 | Outpatient (CLI) | payer OTHER, SELFPAY ==
[2019-10-27 15:49] VITALS: BMI 41.3
== END | disposition home or self-care (01) ==
LOC: LABSPEC 16:44
PROVIDERS: PCP Family Medicine; Referring Provider Obstetrics & Gynecology; Visit Provider Obstetrics & Gynecology
DX: Z34.93 Encounter for supervision of normal pregnancy, unspecified, third trimester (principal); Z3A.36 36 weeks gestation of pregnancy
CPT/HCPCS: 87081

== ENCOUNTER 2019-10-28 20:40 | Outpatient (CLI) | payer OTHER, SELFPAY ==
[2019-10-27 15:49] VITALS: BMI 41.3
[2019-10-28] VITALS (9 sets, daily range): BP systolic 131–148; BP diastolic 82–94; PULSE 96–118; TEMP 36.9; O2SAT 97; BMI 40.8
[2019-10-28 21:49] LABS: Mean Corp Hgb Conc 33.3 g/dL (32-36); Mean Corpuscular Hgb 27.8 pg (27.0-32.0); Mean Corpuscular Volume 83.5 fL (81-99); Mean Platelet Vol. 10.2 fl (6.2-12.0); Platelet Count 210 K/mm3 (150-450); RBC Distribution Width CV 14.7 % (11.6-14.6); RBC Distribution Width SD 44.1 fl (35.1-43.9); Red Blood Count 4.31 M/mm3 (4.2-5.4); White Blood Count 11.9 K/mm3 (4.4-11.0)
[2019-10-28 22:00] LABS: Protein, Urine (Random) 26.7 mg/dL (<11.9); Protein:Creat Ratio 911 mg/g CRE (0-200)
[2019-10-28 22:03] LABS: International Normalized Ratio 1.1; Partial Thromboplast Time 27.1 Seconds (24.1-36.2); Prothrombin Time (Protime)PT. 14.3 SECONDS (11.7-14.9)
[2019-10-28 22:12] LABS: AST(SGOT) 11 U/L (15-37); Alanine Aminotransfer ALT/SGPT 13 U/L (13-56); Creatinine, Serum 0.65 mg/dL (0.55-1.02); EST Glomerular Filtration Rate 114 mL/min (>60); Est Glom Filt Rate - Afr Amer 138 mL/min (>60); Estimated Creatinine Clearance 105.64 ml/min
[2019-10-28] MEDS: Labetalol 200 MG Tablet PO (22:45)
[2019-10-28] MEDS: 0.9% Saline Lock 10 ML Syringe IV (23:00)
[2019-10-28] MEDS: Lactated Ringers 1,000 ML 999 ML IV (23:00)
[2019-10-29] VITALS (8 sets, daily range): BP systolic 117–142; BP diastolic 68–95; PULSE 87–99; TEMP 36.7; O2SAT 86
[2019-10-29] MEDS: Acetaminophen 500 MG Tablet 1000 MG PO (04:08)
--- NOTE | 2019-10-29 05:06 | OB.TRI.HP_ITS ---
- Problem List (1) Headache in Status: Acute (2) Kidney stone complicating Status: Acute Qualifiers: (3) Proteinuria affecting Status: Acute Qualifiers: (4) Status: Acute Qualifiers: Comment: declines, genetic, carrier and NTD. Normal anatomy. RASHAAD normal (5) Supervision of high risk , antepartum Status: Acute Comment: PRR SU 11/22/19 PC Alyssia Rosario Spouse Shelton (6) Chronic hypertension affecting Status: Chronic Comment: plan 38 week delivery. labetalol, hctz. seenilda berrios. nl baseline labs except proteinuria, nl ekg. 81 mg at starting at 14 wks; Bile Acid negative (7) Anxiety Status: Acute Comment: celexa, encouraged counseling History of Present Illness Date of Service: 10/29/19 Was patient seen by the physician?: Yes Reason For Visit: HIGH BLOOD PRESSURE Date of Service: 10/29/19 Final SU: 11/22/19 Gestational age: 36 Weeks and 4 Days History of Present Illness: 29-year-old G3, P2 at 36 weeks 4 days presents with headache and nausea and pressures higher than previous. She is a history of chronic hypertension that has been well controlled on labetalol and hydrochlorothiazide. Today she started feeling sick and blood pressures are little higher than usual. Blood work upon initial evaluation was stable but proteinuria was a little increased over baseline. Allergies lisinopril Allergy (Verified 10/27/19 15:48) Other COUGH bupropion [From Wellbutrin] Adverse Reaction (Verified 10/27/19 15:48) mental fog - Pertinent Past Medical History Medical History: Past Medical History (Last Reviewed 10/27/19 @ 15:56 by Sonia Marks) Anxiety (Acute) celexa, encouraged counseling Hypertension (Resolved) depression (Resolved) Seasonal allergies (Resolved) Surgical History: Past Surgical History (Last Reviewed 10/27/19 @ 15:48 by Sonia Marks) S/P tonsillectomy S/p bilateral carpal tunnel release Laboratory Studies: Laboratory Tests 10/28/19 10/28/19 10/28/19 Range/Units 21:23 21:23 21:23 WBC (4.4-11.0) K/mm3 RBC (4.2-5.4) M/mm3 Hgb (12.0-15.0) g/dL Hct (37-47) % MCV (81-99) fL MCH (27.0-32.0) pg MCHC (32-36) g/dL RDW Std Deviation (35.1-43.9) fl RDW Coeff of Kamala (11.6-14.6) % Plt Count (150-450) K/mm3 MPV (6.2-12.0) fl PT 14.3 (11.7-14.9) SECONDS INR 1.1 APTT 27.1 (24.1-36.2) Seconds Creatinine 0.65 (0.55-1.02) mg/dL Estim Creat Clear Calc 105.64 ml/min Est GFR (MDRD) Af Amer 138 (>60) mL/min Est GFR (MDRD) Non-Af 114 (>60) mL/min Uric Acid 5.0 (2.6-6.0) mg/dL AST 11 L (15-37) U/L ALT 13 (13-56) U/L U Random Total Protein 26.7 H (<11.9) mg/dL Urine Creatinine 29.30 (NO RANGE EST.) mg/dL Protein/Creatinin Ratio 911 H (0-200) mg/g CRE 10/28/19 Range/Units 21:23 WBC 11.9 H (4.4-11.0) K/mm3 RBC 4.31 (4.2-5.4) M/mm3 Hgb 12.0 (12.0-15.0) g/dL Hct 36.0 L (37-47) % MCV 83.5 (81-99) fL MCH 27.8 (27.0-32.0) pg MCHC 33.3 (32-36) g/dL RDW Std Deviation 44.1 H (35.1-43.9) fl RDW Coeff of Kamala 14.7 H (11.6-14.6) % Plt Count 210 (150-450) K/mm3 MPV 10.2 (6.2-12.0) fl PT (11.7-14.9) SECONDS INR APTT (24.1-36.2) Seconds Creatinine (0.55-1.02) mg/dL Estim Creat Clear Calc ml/min Est GFR (MDRD) Af Amer (>60) mL/min Est GFR (MDRD) Non-Af (>60) mL/min Uric Acid (2.6-6.0) mg/dL AST (15-37) U/L ALT (13-56) U/L U Random Total Protein (<11.9) mg/dL Urine Creatinine (NO RANGE EST.) mg/dL Protein/Creatinin Ratio (0-200) mg/g CRE Review of Systems Eyes: Reports: Blurred vision HEENT: Reports: Head Aches Cardiovascular: Denies: Chest Pain Respiratory: Denies: Cough Gastrointestinal: Reports: Nausea. Denies: Abdominal Pain Physical Exam Vitals: Vital Signs Temp Pulse BP Pulse Ox 98.5 F 89 139/95 H 97 10/28/19 23:59 10/29/19 03:58 10/29/19 03:58 10/28/19 21:01 General: Alert, Cooperative, No apparent distress HEENT: Atraumatic, Normocephalic. Negative for: Thyromegaly, Lymphadenopathy Cardiovascular: Regular rate Lungs: Normal air movement Abdomen: Soft, Non Tender, Gravid Neurological: Deep Tendon Reflexes 2+/4 and Symmetrical, Neuro grossly intact. Negative for: Clonus NEUROLOGY PROFESSOR: Normal external genitalia. Negative for: Vulvar lesions Estimated gestational size: Appropriate for gestational size Presentation: Cephalic NST - FHR Rate Baby A Baseline: 140 Variability:: Moderate Accelerations:: 15 x 15 Decelerations:: None NST Reactive:: Yes FHR Category:: Category I Uterine Activity:: no regular Impression/Plan 29-year-old G3, P2 at 36 weeks 4 days presents with increased blood pressures and headache and nausea. Admit for short term observation and serial labs to rule out superimposed preeclampsia. Multi Select Codes - Visit Charges Office Visit/Consults: 59888 OV L4 Est - Urinary/Genital Urinary/Genital CPT Codes: 27474-39 non-stress test Interp
[2019-10-29 06:16] LABS: Absolute Lymphocyte Count 2.58 X10^3/uL (0.83-4.51); Absolute Neutrophil Count 7.8 X10^3/uL (2.0-7.7); Basophil# 0.06 X10^3/uL; Basophil% 0.5 % (0-1); Eosinophil# 0.57 X10^3/uL; Eosinophils% 4.7 % (0-5); Hematocrit 35.8 % (37-47); Hemoglobin 11.8 g/dL (12.0-15.0); Lymphocyte # 2.58 X10^3/ul (4.0); Lymphocyte % 21.1 % (19-41); Mean Corpuscular Hgb 27.8 pg (27.0-32.0); Mean Corpuscular Volume 84.2 fL (81-99); Mean Platelet Vol. 9.8 fl (6.2-12.0); Monocyte# 0.84 X10^3/uL; Monocyte% 6.9 % (0-10); NRBC Flagged by Analyzer 0 % (0-5); Neutrophil # 7.75 X10^3/uL (2.7-7.7); Neutrophil % 63.4 % (47-70); Platelet Count 209 K/mm3 (150-450); RBC Distribution Width CV 14.9 % (11.6-14.6); RBC Distribution Width SD 45.1 fl (35.1-43.9); Red Blood Count 4.25 M/mm3 (4.2-5.4); White Blood Count 12.2 K/mm3 (4.4-11.0)
[2019-10-29 06:39] LABS: Protein, Urine (Random) 27.8 mg/dL (<11.9); Protein:Creat Ratio 580 mg/g CRE (0-200)
[2019-10-29 07:02] LABS: ALB/GLOB Ratio 0.5 RATIO (0.9-2.4); AST(SGOT) 12 U/L (15-37); Alanine Aminotransfer ALT/SGPT 12 U/L (13-56); Albumin, Serum 2.3 g/dL (3.2-5.0); Alkaline Phosphatase 291 U/L (45-117); Anion Gap 9 (5-15); BUN 6 mg/dL (7-18); BUN/Creat Ratio 9.7 RATIO (10-20); Calcium,Total 8.9 mg/dL (8.5-10.1); Chloride 109 mmol/L (98-107); Creatinine, Serum 0.62 mg/dL (0.55-1.02); EST Glomerular Filtration Rate 122 mL/min (>60); Est Glom Filt Rate - Afr Amer 147 mL/min (>60); Estimated Creatinine Clearance 110.75 ml/min; Globulin 4.3 g/dL (2.2-4.2); Glucose 88 mg/dL (74-106); Potassium 3.4 mmol/L (3.5-5.1); Protein, Total 6.6 g/dL (6.4-8.2); Sodium Level 139 mmol/L (136-145)
== END 2019-10-29 07:27 | disposition home or self-care (01) ==
LOC: WPOUT 20:44 → OBT 20:45 → WP 22:34
PROVIDERS: PCP Family Medicine; Visit Provider Obstetrics & Gynecology
DX: O10.913 Unspecified pre-existing hypertension complicating pregnancy, third trimester (principal); O09.93 Supervision of high risk pregnancy, unspecified, third trimester; O99.343 Other mental disorders complicating pregnancy, third trimester; F41.9 Anxiety disorder, unspecified; Z3A.36 36 weeks gestation of pregnancy; Z79.899 Other long term (current) drug therapy
CPT/HCPCS: 96360; 36415; 59025; 59050; 80053; 82565; 82570; 84156; 84450; 84460; 84550; 85025; 85027; 85610; 85730; 99218; J7120; A4216; G0378

== ENCOUNTER → 2019-10-30 12:27 | Outpatient (CLI) | payer OTHER, SELFPAY ==
[2019-09-01 16:06] VITALS: BMI 41.8
[2019-10-28 21:06] VITALS: BMI 40.8
--- NOTE | 2019-10-30 12:37 | US_ITS ---
STUDY: SECOND AND THIRD TRIMESTER OBSTETRICAL ULTRASOUND - LIMITED REASON FOR EXAM: Female, 29 years old RASHAAD -- PATIENT BEING INDUCED IN 2 DAYS LMP: February 15, 2019. PRIOR ULTRASOUND: Comparison is made with prior examination dated October 23, 2019. TECHNIQUE: Transabdominal TECHNICAL QUALITY: Adequate. FINDINGS: There is a single intrauterine fetus. The fetus is in a cephalic presentation. There is demonstrated cardiac activity with a heart rate of 145 bpm. There is a normal amniotic fluid volume. The largest amniotic fluid pocket measures 6.5 cm. The amniotic fluid index (RASHAAD) is 11.8 cm. The placenta is fundal in location. There are Grade 2 placental changes. Age by LMP: 36 weeks, 5 days. SU by LMP: November 22, 2019.. US/OB Limited (No Biometrics) IMPRESSION: Normal amniotic fluid. Electronically Signed: Matti Scherer, at 13:36 EDT , Service support ,
== END ==
LOC: OPUS 12:28
PROVIDERS: PCP Family Medicine; Referring Provider Obstetrics & Gynecology; Visit Provider Obstetrics & Gynecology
DX: Z34.90 Encounter for supervision of normal pregnancy, unspecified, unspecified trimester (principal)
CPT/HCPCS: 76815

== ENCOUNTER 2019-10-31 08:50 | Outpatient (CLI) | payer OTHER, SELFPAY ==
[2019-10-28 21:06] VITALS: BMI 40.8
[2019-10-31 09:49] VITALS: BMI 41.6
--- NOTE | 2019-11-01 07:21 | OB.TRI.PN ---
Progress Notes Date of Service: 10/31/19 Progress Note: false labor negative rom plus fu as scheduled
== END 2019-10-31 09:50 | disposition home or self-care (01) ==
LOC: WPOUT 08:53 → OBT 08:54
PROVIDERS: PCP Family Medicine; Referring Provider Obstetrics & Gynecology; Visit Provider Obstetrics & Gynecology
DX: O47.9 False labor, unspecified (principal); Z3A.00 Weeks of gestation of pregnancy not specified
CPT/HCPCS: 59025; 59050; 99218; G0378

== ENCOUNTER 2019-11-01 06:49 | Inpatient (IN) | payer OTHER, SELFPAY ==
[2019-10-31 09:49] VITALS: BMI 41.6
[2019-11-01] VITALS (23 sets, daily range): BP systolic 111–142; BP diastolic 76–95; PULSE 82–122; TEMP 36.7–37.9; O2SAT 98–100; BMI 40.7
--- NOTE | 2019-11-01 07:30 | PCM.HP.OB ---
History Date of Admission: 11/01/19 Final SU: 11/22/19 Gestational age: 37 Weeks and 0 Days History of this : This is a 29 year-old, at weeks gestational age resents for induction of labor secondary to chronic hypertension with superimposed preeclampsia. Patient has had intermittent headache and visual changes the last several days and had a change in proteinuria. Other labs were within normal limits the pressures have been starting to increase despite being stable on previous medications. Medical History: Medical History (Last Reviewed 10/27/19 @ 15:56 by Sonia Marks) Anxiety (Acute) F41.9 celexa, encouraged counseling Hypertension (Resolved) I10 depression (Resolved) O99.345, F53.0 Seasonal allergies (Resolved) J30.2 Surgical History: Surgical History (Last Reviewed 10/27/19 @ 15:48 by Sonia Marks) S/P tonsillectomy Z90.89 S/p bilateral carpal tunnel release Z98.890 Allergies lisinopril Allergy (Verified 10/27/19 15:48) Other COUGH bupropion [From Wellbutrin] Adverse Reaction (Verified 10/27/19 15:48) mental fog Home Medications: Home Medications Levocetirizine Dihydrochloride 1 tab PO DAILY 11/27/18 hydroCHLOROthiazide [Hydrochlorothiazide] 12.5 mg PO DAILY 11/27/18 Aspirin [Aspirin, Baby] 81 mg PO DAILY@0800 06/25/19 Vit,Calc76/Iron/Folic [Pnv 29-1 Tablet] 1 ea PO DAILY 10/28/19 Citalopram Hydrobromide [Citalopram HBr] 40 mg PO DAILY 11/01/19 Famotidine 20 mg PO DAILY 11/01/19 Labetalol [Trandate (Beta Toi)] 200 mg PO BID 11/01/19 Smoking Status: Never smoker NST - FHR Rate Baby A Baseline: 130 Variability:: Moderate Accelerations:: 15 x 15 Decelerations:: None NST Reactive:: Yes FHR Category:: Category I Uterine Activity:: irregular History Past Pregnancies: Past Pregnancies Pregancy History 3 Elective abortions Hx Para 2 Spontaneous abortions Hx # Term Pregnancies Ectopic pregnancies Hx # Pregnancies Multiple births # of living children Past Pregnancies Del. Date Name GA/Weeks Outcome Route Bth Weight Gen Labor Lgth Anesthesia Del [facility] Provider FOB 12/14/13 Abraham 39 live - full term 6lbs 14oz Male 16 hours epidural [facility] Dr. Izaguirre 10/14/15 Alyssia 39 live - full term 7lbs 5.3oz Female 8 hours epidural [facility] Dr. Sprague Delivery Date: 12/14/13 On 04/17/19 @ 14:12 Shahla Villafana High blood pressure at the end of , was induced because of it. Delivery Date: 10/14/15 On 04/17/19 @ 14:14 Shahla Villafana Elevated blood pressure. depression Labs: Social History Alleged father Shayan Sousa Smoking No Smoking Status Never smoker Expected Delivery Method: Spontaneous Vaginal Review of Systems Constitutional: Denies: Fever, Malaise Eyes: Reports: Blurred vision. Denies: Vision Change HEENT: Reports: Head Aches. Denies: Visual Changes Cardiovascular: Denies: Chest Pain, Palpitations Respiratory: Denies: Cough, Shortness of Breath, Wheezing Gastrointestinal: Denies: Abdominal Pain, Diarrhea, Nausea, Vomiting Genitourinary: Denies: Dysuria, Hematuria Musculoskeletal: Denies: Joint Pain, Muscle pain Skin: Denies: Lesions, Rash Neurological: Denies: Blurred vision, Focal weakness, Headaches Psychiatric: Denies: Anxiety, Depression Endocrine: Denies: Heat/ Cold Intolerance Hematologic/ Lymphatic: Denies: Easy Bruising, Easy Bleeding Physical Exam Vitals: Vital Signs Temp Pulse BP 99.7 F H 122 H 131/90 H 11/01/19 07:13 11/01/19 07:13 11/01/19 07:13 General: Alert, Cooperative, No apparent distress HEENT: Atraumatic, Normocephalic. Negative for: Thyromegaly, Lymphadenopathy Cardiovascular: Regular rate Lungs: Normal air movement Abdomen: Soft, Non Tender, Gravid Neurological: Deep Tendon Reflexes 2+/4 and Symmetrical, Neuro grossly intact. 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 Negative for: Vulvar lesions Estimated gestational size: Appropriate for gestational size Presentation: Cephalic Assessment/Plan All Active Problems (Last Reviewed 10/27/19 @ 15:56 by Sonia Marks) Headache in (Acute) Kidney stone complicating (Acute) Proteinuria affecting (Acute) (Acute) Supervision of high risk , antepartum (Acute) Anxiety (Acute) Hypertension (Resolved) IUD (intrauterine device) in place (Resolved) depression (Resolved) Seasonal allergies (Resolved) Vaginal bleeding (Resolved) This is a 29 year-old, G 3P2 at 37 weeks gestational age presents for induction of labor secondary to chronic hypertension with superimposed preeclampsia with mild features Patient presents IOL, plan management for , pitocin/AROM . Pain management: Plans epidural. GBS negative. Management of any complications: Most recent labs stable, monitor blood pressures throughout labor. Start magnesium sulfate if severely elevated blood pressures I have reviewed the [facility] and made any clinically relevant updates.
[2019-11-01] MEDS: Lactated Ringers 1,000 ML 50 ML IV (07:40)
[2019-11-01 07:54] LABS: Absolute Lymphocyte Count 1.89 X10^3/uL (0.83-4.51); Absolute Neutrophil Count 8.2 X10^3/uL (2.0-7.7); Basophil# 0.09 X10^3/uL; Basophil% 0.8 % (0-1); Eosinophil# 0.36 X10^3/uL; Eosinophils% 3.1 % (0-5); Hematocrit 37.8 % (37-47); Hemoglobin 12.7 g/dL (12.0-15.0); Lymphocyte # 1.89 X10^3/ul (4.0); Lymphocyte % 16.1 % (19-41); Mean Corp Hgb Conc 33.6 g/dL (32-36); Mean Corpuscular Hgb 28.3 pg (27.0-32.0); Mean Corpuscular Volume 84.2 fL (81-99); Mean Platelet Vol. 9.9 fl (6.2-12.0); Monocyte# 0.81 X10^3/uL; Monocyte% 6.9 % (0-10); NRBC Flagged by Analyzer 0 % (0-5); Neutrophil # 8.23 X10^3/uL (2.7-7.7); Neutrophil % 70.1 % (47-70); Platelet Count 209 K/mm3 (150-450); RBC Distribution Width CV 14.6 % (11.6-14.6); Red Blood Count 4.49 M/mm3 (4.2-5.4); White Blood Count 11.7 K/mm3 (4.4-11.0)
[2019-11-01] MEDS: miSOPROStol 25 MCG TABLET VAGINAL (08:12)
[2019-11-01] MEDS: Labetalol 200 MG Tablet PO ×2 (12:01→21:41)
[2019-11-01] MEDS: miSOPROStol 50 MCG TABLET VAGINAL ×2 (13:00→18:59)
[2019-11-01 17:14] LABS: Amphetamine Urine VISTA NEGATIVE (<1000 ng/mL); Barbiturate Urine VISTA NEGATIVE (< 200 ng/mL); Benzodiazepine Urine VISTA NEGATIVE (< 200 ng/mL); Cocaine Urine VISTA NEGATIVE (< 300 ng/mL); Ecstacy Urine VISTA NEGATIVE (< 500 ng/mL); Methadone Urine VISTA NEGATIVE (< 300 ng/mL); PCP Urine VISTA NEGATIVE (< 25 ng/mL); THC Urine VISTA NEGATIVE (< 50 ng/mL); Vista UDS pH Range 7
[2019-11-01] MEDS: fentaNYL 100 MCG/2 ML Ampul IV (22:39)
[2019-11-01] MEDS: Lactated Ringers 500 ML 999 ML IV (22:45)
[2019-11-02] VITALS (59 sets, daily range): BP systolic 112–168; BP diastolic 59–97; PULSE 80–136; RESP 14–18; TEMP 36.7–37.4; O2SAT 86–100
[2019-11-02] MEDS: 0.9% Normal Saline Single 100 ML IV.SOLN. IY (02:01)
--- NOTE | 2019-11-02 02:02 | PCM.PN.BLA ---
Progress Note 40/-3 s/p cytotec x 3. de león bulb placed. will start pitocin PRN. bps elevated mild. continue to monitor STROKE Vital Signs/Narrative: Vital Signs Temp Pulse BP Pulse Ox 11/02/19 01:55 81 145/94 H 11/02/19 01:40 87 142/90 H 11/02/19 01:22 98.6 F 83 137/92 H 11/02/19 00:42 98.0 F 83 134/86 H 98 11/01/19 23:15 83 130/85 H 11/01/19 22:23 98.6 F 84 136/85 H 98
[2019-11-02] MEDS: Lactated Ringers 1,000 ML 50 ML IV ×2 (02:05→07:17)
[2019-11-02] MEDS: fentaNYL-bupivacaine (epidural) 100 ML BAG EPIDURAL ×2 (03:08→07:49)
[2019-11-02] MEDS: Oxytocin 30 units/NS 500 ml 30 UNITS/500 ML IV.SOLN IV (07:18)
[2019-11-02] MEDS: Lactated Ringers 500 ML 999 ML IV (09:21)
[2019-11-02] MEDS: Labetalol 200 MG Tablet PO (10:05)
[2019-11-02] MEDS: Oxytocin 30 units/NS 500 ml 30 UNITS/500 ML IV.SOLN 334 UNITS IV (12:56)
--- NOTE | 2019-11-02 13:03 | PCM.OPRPT ---
Problem List (1) Pre-eclampsia added to pre-existing hypertension Status: Acute (2) Headache in Status: Acute (3) Kidney stone complicating Status: Acute Qualifiers: (4) Proteinuria affecting Status: Acute Qualifiers: (5) Status: Acute Qualifiers: Comment: declines, genetic, carrier and NTD. Normal anatomy. RASHAAD normal (6) Supervision of high risk , antepartum Status: Acute Comment: PRR SU 11/22/19 PC Alyssia Rosario Spouse Shelton (7) Chronic hypertension affecting Status: Chronic Comment: plan 38 week delivery. labetalol, hctz. sees agustina. nl baseline labs except proteinuria, nl ekg. 81 mg at starting at 14 wks; Bile Acid negative (8) Anxiety Status: Acute Comment: celexa, encouraged counseling Vaginal Delivery Maternal Presentation: Medically Indicated Induction iol chtn with SI preeclampsia Method of Induction: Pitocin, Patterson Bulb, Cytotec Medical Reason for Induction: Preeclampsia, eclampsia Amniotic Membrane Rupture Type: Artificial Amniotic Fluid Description: Clear Date of Procedure: 11/02/19 Pre-Operative Diagnosis: iol Post-Operative Diagnosis: same Surgery/ Procedure Performed: Spontaneous Vaginal Delivery Type of Anesthesia: Epidural Description of Procedure: Patient began pushing and delivered the head in the MATTHEW presentation. The head was delivered atraumatically . The anterior and posterior shoulders delivered without complication followed by the rest of the and the was placed on the maternal abdomen. Delayed cord clamping was employed for approximately 60 seconds. Cord was clamped and cut and gentle traction was applied to the cord and the placenta delivered spontaneously immediately following it was noted to be intact with three-vessel cord. The perineum and vagina were inspected and noted to have no laceration. EBL was 100 cc. Patient and tolerated delivery well. Presentation: MATTHEW Placental Delivery Description: Spontaneous Placenta Disposition: [facility] Cord Vessel Description: 3 Vessels Cord Entanglement: None Estimated Blood Loss: 100 A gender: Female Episiotomy Description: None Laceration: None Medications given after delivery: IV Pitocin Complications: None Multi Select Codes - Urinary/Genital Urinary/Genital CPT Codes: 23655 Vaginal Delivery [facility]
[2019-11-02] MEDS: Naproxen 250 MG Tablet 500 MG PO (16:49)
[2019-11-03] VITALS (21 sets, daily range): BP systolic 127–168; BP diastolic 77–97; PULSE 70–87; RESP 14–22; TEMP 36.4–36.9; O2SAT 98
--- NOTE | 2019-11-03 07:58 | PN.OBGYN_ITS ---
Patient Problems: Active and Suspected Problems (Last Reviewed 10/27/19 @ 15:56 by Sonia Marks) Pre-eclampsia added to pre-existing hypertension (Acute) Subjective: doing well no complaints pain controlled no CP SOB N V ambulating well tolerating po lochia moderate, going well - Physical Exam Vitals/I&O's: Vital Signs Temp Pulse Resp BP Pulse Ox 97.9 F 70 18 136/89 H 97 11/03/19 04:23 11/03/19 04:24 11/03/19 04:23 11/03/19 04:24 11/02/19 14:51 Oxygen Delivery Method Room Air Weight: 233 lb 11.04 oz Body Mass Index (BMI) 40.7 Intake and Output for Last 24 Hours 11/01/19 11/02/19 11/03/19 23:59 23:59 23:59 Intake Total 2354.17 / 2354.17 2109.23 / 2109.23 Output Total 1550 / 1550 1500 / 1500 Balance 804.17 / 804.17 609.23 / 609.23 General: Alert, Oriented x3 Current Medications Acetaminophen (Tylenol) 1,000 mg PO Q8H PRN PRN PRN Reason: Pain Score 1-3/10 Bisacodyl (Dulcolax) 10 mg RECTAL UD PRN PRN Reason: If no BM Citalopram Hydrobromide (Celexa) 40 mg PO DAILY BECCA Dibucaine (Dibucaine) 1 applic TOPICAL TID PRN PRN; Protocol PRN Reason: Discomfort Famotidine (Pepcid) 20 mg PO DAILY [facility] Hydrochlorothiazide () 12.5 mg PO DAILY BECCA Hydrocortisone (Hytone) 1 applic TOPICAL TID PRN PRN; Protocol PRN Reason: Discomfort Labetalol HCl (Trandate) 200 mg PO BID BECCA Naproxen (Naprosyn) 500 mg PO Q8H PRN PRN PRN Reason: Pain Score 1-3/10 Last Admin: 11/02/19 16:49 Dose: 500 mg Documented by: Non-Formulary Medication (Levocetirizine Dihydrochloride) 1 tab PO DAILY BECCA Non-Formulary Medication ( Vit,Calc76/Iron/Folic [Pnv 29-1 Tablet]) 1 ea PO DAILY BECCA Ondansetron HCl (Zofran) 4 mg IV Q4H PRN PRN PRN Reason: Nausea Oxycodone HCl (Oxyir) 5 - 10 mg PO Q4H PRN PRN PRN Reason: Pain Score 4-10/10 Senna/Docusate Sodium (Senokot-S, Candida-Colace) 1 - 2 tablet PO DAILY PRN PRN PRN Reason: Constipation Simethicone (Mylicon) 80 mg PO PCHS PRN PRN Reason: Indigestion/Stomach pain Sodium Chloride () 5 - 15 ml IV UD PRN PRN Reason: SALINE FLUSH Medical Necessity - Tobacco Use Smoking Status: Former smoker Assessment/Plan All Active Problems (Last Reviewed 10/27/19 @ 15:56 by Sonia Marks) Headache in (Acute) Pre-eclampsia added to pre-existing hypertension (Acute) Kidney stone complicating (Acute) Proteinuria affecting (Acute) (Acute) Supervision of high risk , antepartum (Acute) Anxiety (Acute) Hypertension (Resolved) IUD (intrauterine device) in place (Resolved) depression (Resolved) Seasonal allergies (Resolved) Vaginal bleeding (Resolved) s/p PPD # 1 1. routine post delivery care 2. breast feeding- support given 3. rh positive 4. rubella immune cHTN- with SI preeclampsia, monitor bps
--- NOTE | 2019-11-03 07:58 | DCINST_ITS ---
Discharge Diet: No Restrictions Discharge Activity: Return to Normal Activity, May not drive while taking narcotic pain medications., May Shower May resume sexual activity in: 4-6 weeks Call your doctor if your incision/area has: Continuous Slow Oozing, Sudden Increased Bleeding, Increased Pain/ Swelling, Increased Redness, Foul Smelling Discharge Additional Instructions: If you experience any of the following, contact your healthcare provider. * Bleeding that soaks a pad every hour for 2 hours * Fever 100.4 or higher * Unrelieved incision or abdominal pain * Swelling, redness, discharge or bleeding from your incision or episiotomy site * Your incision begins to separate * Problems urinating (including inability to urinate or burning while urinating). * Visual changes * Severe headache * Flu-like symptoms * Pain or redness in one of both of your breasts * Pain, warmth, tenderness or swelling in your legs, especially the calf area * Frequent nausea and vomiting * Symptoms of depression or anxiety If you experience any of the following, call 911 or go to the nearest Emergency Room. * Chest pain * Problems breathing * Seizure activity * Partial or complete paralysis of a body part, slurred speech, weakness or drooping of the face, or a sudden inability to walk or hold your balance Allergies/Adverse Reactions: Allergies lisinopril Allergy (Verified 10/27/19 15:48) Other COUGH bupropion [From Wellbutrin] Adverse Reaction (Verified 10/27/19 15:48) mental fog Medications to take at Discharge Levocetirizine Dihydrochloride 1 tab PO DAILY 11/27/18 hydroCHLOROthiazide [Hydrochlorothiazide] 12.5 mg PO DAILY 11/27/18 Aspirin [Aspirin, Baby] 81 mg PO DAILY@0800 06/25/19 Vit,Calc76/Iron/Folic [Pnv 29-1 Tablet] 1 ea PO DAILY 10/28/19 Citalopram Hydrobromide [Citalopram HBr] 40 mg PO DAILY 11/01/19 Famotidine 20 mg PO DAILY 11/01/19 Labetalol [Trandate (Beta Toi)] 200 mg PO BID 11/01/19 Naproxen [Naprosyn] 250 - 500 mg PO Q8H PRN PRN #30 tab 11/03/19 The following prescriptions were given: Naproxen [Naprosyn] 250 - 500 mg PO Q8H PRN PRN #30 tab PRN Reason: MILD PAIN Transmission Status: Pending to [facility] Please Follow Up With: Nuris Izaguirre MD - [phone] When: Call to make an appointment with your doctor in 6 weeks. If you had elevated Blood pressure or 4th degree laceration you will need to be seen in 2 weeks. Primary Care Physician: Joni Adamson MD [Primary Care Provider] - Test Results: Test results from this visit will be discussed in further detail at your follow- up appointment, if applicable.
[2019-11-03] MEDS: Citalopram 40 MG TABLET PO (10:49)
[2019-11-03] MEDS: Famotidine 20 MG Tablet PO (10:49)
[2019-11-03] MEDS: Labetalol 200 MG Tablet PO ×2 (10:50→20:55)
[2019-11-03] MEDS: Prenatal Vits Tablet 1 TABLET PO (10:51)
[2019-11-03] MEDS: hydroCHLOROthiazide 12.5mg 12.5 MG PO (10:51)
[2019-11-03] MEDS: Loratadine 10 MG Tablet 5 MG PO (11:02)
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
[2019-11-03] MEDS: Naproxen 250 MG Tablet 500 MG PO (17:31)
[2019-11-04] VITALS: BP 109/66; PULSE 72; RESP 18; TEMP 36.8
[2019-11-04 03:45] VITALS: BP 130/76; PULSE 67; RESP 18; TEMP 36.6
--- NOTE | 2019-11-04 06:33 | PCM.PN.OB ---
Patient Problems: Active and Suspected Problems (Last Reviewed 10/27/19 @ 15:56 by Sonia Marks) Pre-eclampsia added to pre-existing hypertension (Acute) Subjective: doing well no complaints pain controlled no CP SOB N V ambulating well tolerating po lochia moderate, going well - Physical Exam Vitals/I&O's: Vital Signs Temp Pulse Resp BP Pulse Ox 97.9 F 67 18 130/76 H 98 11/04/19 03:45 11/04/19 03:45 11/04/19 03:45 11/04/19 03:45 11/03/19 20:55 Oxygen Delivery Method Room Air Weight: 233 lb 11.04 oz Body Mass Index (BMI) 40.7 Intake and Output for Last 24 Hours 11/02/19 11/03/19 11/04/19 23:59 23:59 23:59 Intake Total 2109.23 / 2109.23 Output Total 1500 / 1500 Balance 609.23 / 609.23 General: Alert, Oriented x3 Current Medications Acetaminophen (Tylenol) 1,000 mg PO Q8H PRN PRN PRN Reason: Pain Score 1-3/10 Bisacodyl (Dulcolax) 10 mg RECTAL UD PRN PRN Reason: If no BM Citalopram Hydrobromide (Celexa) 40 mg PO DAILY [facility] Last Admin: 11/03/19 10:49 Dose: 40 mg Documented by: Dibucaine (Dibucaine) 1 applic TOPICAL TID PRN PRN; Protocol PRN Reason: Discomfort Famotidine (Pepcid) 20 mg PO DAILY [facility] Last Admin: 11/03/19 10:49 Dose: 20 mg Documented by: Hydrochlorothiazide () 12.5 mg PO DAILY [facility] Last Admin: 11/03/19 10:51 Dose: 12.5 mg Documented by: Hydrocortisone (Hytone) 1 applic TOPICAL TID PRN PRN; Protocol PRN Reason: Discomfort Labetalol HCl (Trandate) 200 mg PO BID [facility] Last Admin: 11/03/19 20:55 Dose: 200 mg Documented by: Loratadine (Claritin) 5 mg PO DAILY [facility] Last Admin: 11/03/19 11:02 Dose: 5 mg Documented by: Naproxen (Naprosyn) 500 mg PO Q8H PRN PRN PRN Reason: Pain Score 1-3/10 Last Admin: 11/03/19 17:31 Dose: 500 mg Documented by: Ondansetron HCl (Zofran) 4 mg IV Q4H PRN PRN PRN Reason: Nausea Oxycodone HCl (Oxyir) 5 - 10 mg PO Q4H PRN PRN PRN Reason: Pain Score 4-10/10 Multivit/Folic Acid/Iron (Prenatabs Fa) 1 tablet PO DAILY@1200 [facility] Last Admin: 11/03/19 10:51 Dose: 1 tablet Documented by: Senna/Docusate Sodium (Senokot-S, Candida-Colace) 1 - 2 tablet PO DAILY PRN PRN PRN Reason: Constipation Simethicone (Mylicon) 80 mg PO PCHS PRN PRN Reason: Indigestion/Stomach pain Sodium Chloride () 5 - 15 ml IV UD PRN PRN Reason: SALINE FLUSH Medical Necessity - Tobacco Use Smoking Status: Former smoker Assessment/Plan All Active Problems (Last Reviewed 10/27/19 @ 15:56 by Sonia Marks) Headache in (Acute) Pre-eclampsia added to pre-existing hypertension (Acute) Kidney stone complicating (Acute) Proteinuria affecting (Acute) (Acute) Supervision of high risk , antepartum (Acute) Anxiety (Acute) Hypertension (Resolved) IUD (intrauterine device) in place (Resolved) depression (Resolved) Seasonal allergies (Resolved) Vaginal bleeding (Resolved) s/p PPD # 2 1. routine post delivery care 2. breast feeding- support given 3. rh positive 4. rubella immune cHTN- with SI preeclampsia, monitor bps continue home meds
[2019-11-04 09:30] VITALS: BP 127/78; PULSE 86; RESP 16; TEMP 36.9; O2SAT 98
[2019-11-04] MEDS: Prenatal Vits Tablet 1 TABLET PO (09:41)
[2019-11-04] MEDS: Naproxen 250 MG Tablet 500 MG PO (09:41)
[2019-11-04] MEDS: hydroCHLOROthiazide 12.5mg 12.5 MG PO (09:41)
[2019-11-04] MEDS: Loratadine 10 MG Tablet 5 MG PO (09:42)
[2019-11-04] MEDS: Famotidine 20 MG Tablet PO (09:42)
[2019-11-04] MEDS: Labetalol 200 MG Tablet PO (09:42)
[2019-11-04] MEDS: Citalopram 40 MG TABLET PO (09:42)
[2019-11-04 14:00] VITALS: BP 143/85; PULSE 76; RESP 16; TEMP 36.9; O2SAT 97
== END 2019-11-04 17:30 | disposition home or self-care (01) | DRG 807 ==
PROVIDERS: Admitting Provider Obstetrics & Gynecology; PCP Family Medicine; Referring Provider Obstetrics & Gynecology; Visit Provider Obstetrics & Gynecology
DX: O11.4 Pre-existing hypertension with pre-eclampsia, complicating childbirth (principal); Z37.0 Single live birth; O15.1 Eclampsia complicating labor; F41.9 Anxiety disorder, unspecified; O99.344 Other mental disorders complicating childbirth; Z79.899 Other long term (current) drug therapy; Z79.82 Long term (current) use of aspirin; Z87.891 Personal history of nicotine dependence; Z3A.37 37 weeks gestation of pregnancy
CPT/HCPCS: 59025; 59050; 80307; 85025; 86850; 86900; 86901; 99218; J7120; G0378

== ENCOUNTER 2019-11-28 13:00 | Outpatient (CLI) | payer OTHER, SELFPAY ==
[2019-11-01 07:16] VITALS: BMI 40.7
== END 2019-11-28 14:15 | disposition home or self-care (01) ==
LOC: WPOUT 13:04 → WP 13:07
PROVIDERS: PCP Family Medicine; Referring Provider Obstetrics & Gynecology; Visit Provider Obstetrics & Gynecology
DX: Z39.1 Encounter for care and examination of lactating mother (principal)
CPT/HCPCS: 96158; 96159

== ENCOUNTER 2020-01-16 08:02 | Day surgery (SDC) | payer OTHER, SELFPAY ==
[2019-12-14 14:14] VITALS: BMI 40.7
[2019-12-20 10:08] VITALS: BMI 40.7
[2020-01-16 08:19] LABS: Internal QC Validated? YES +Cl - CLEAR BKGD; Pregnancy, Urine Negative Negative
[2020-01-16 08:21] VITALS: BP 127/88; PULSE 70; RESP 15; TEMP 36.6; O2SAT 100; BMI 35.8
[2020-01-16 08:36] LABS: Hematocrit 45.2 % (37-47); Hemoglobin 14.6 g/dL (12.0-15.0); Mean Corp Hgb Conc 32.3 g/dL (32-36); Mean Corpuscular Hgb 27.4 pg (27.0-32.0); Mean Corpuscular Volume 84.8 fL (81-99); Mean Platelet Vol. 9.7 fl (6.2-12.0); Platelet Count 265 K/mm3 (150-450); RBC Distribution Width CV 13.6 % (11.6-14.6); RBC Distribution Width SD 41.6 fl (35.1-43.9); Red Blood Count 5.33 M/mm3 (4.2-5.4); White Blood Count 9.6 K/mm3 (4.4-11.0)
[2020-01-16] MEDS: Lactated Ringers 1,000 ML 100 ML IV (08:38)
--- NOTE | 2020-01-16 08:53 | HP.PCM_ITS ---
Problem List (1) Sterilization Status: Acute Comment: plan laparoscopic BS. (2) Chronic hypertension Status: Chronic History of Present Illness Date of Admission: 01/16/20 The patient is a 29 year old F presents for laparoscopic bilateral salpingectomy for desired sterilization. Past Medical History Past Medical History (Chronic Problems): Chronic Problems (Last Updated 12/20/19 @ 10:[address] Nuris Izaguirre MD) Chronic hypertension (Chronic) Medical History: Medical History (Last Updated 12/20/19 @ 10:[address] Nuris Izaguirre MD) Anxiety (Acute) F41.9 analisa cerrato, encouraged counseling. recently lost father in law right after Hypertension (Resolved) I10 depression (Resolved) O99.345, F53.0 Seasonal allergies (Resolved) J30.2 Allergies lisinopril Allergy (Verified 01/16/20 08:05) Other COUGH bupropion [From Wellbutrin] Adverse Reaction (Verified 01/16/20 08:05) mental fog Home Medications: Ambulatory Orders Medication Instructions Recorded Levocetirizine Dihydrochloride 1 tab PO DAILY 11/27/18 Citalopram Hydrobromide 40 mg PO DAILY 11/01/19 [Citalopram HBr] Labetalol [Trandate (Beta Toi)] 200 mg PO BID 11/01/19 buspirone 5 mg tablet 7.5 mg PO BID #90 tab 12/28/19 Surgical History: Surgical History (Last Reviewed 12/14/19 @ 14:08 by Carmelina Torres, FUR EXAMINER-C) S/P tonsillectomy Z90.89 S/p bilateral carpal tunnel release Z98.890 Surgical History: noncontributory Psychiatric History: Depression 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 Smoking Status: Former smoker Tobacco Use: Non-smoker Review of Systems Constitutional: Denies: Fever, Malaise Eyes: Denies: Blurred vision, Vision Change HEENT: Denies: Head Aches, Visual Changes Cardiovascular: Denies: Chest Pain, Palpitations Respiratory: Denies: Cough, Shortness of Breath, Wheezing Gastrointestinal: Denies: Abdominal Pain, Diarrhea, Nausea, Vomiting Genitourinary: Denies: Dysuria, Hematuria Musculoskeletal: Denies: Joint Pain, Muscle pain Skin: Denies: Lesions, Rash Neurological: Denies: Blurred vision, Focal weakness, Headaches Psychiatric: Denies: Anxiety, Depression Endocrine: Denies: Heat/ Cold Intolerance Hematologic/ Lymphatic: Denies: Easy Bruising, Easy Bleeding VTE Information - Inpt Only VTE Present on Admission: No - Physical Exam Vitals/I&O's: Vital Signs Temp Pulse Resp BP Pulse Ox 97.8 F 70 15 127/88 H 100 01/16/20 08:21 01/16/20 08:21 01/16/20 08:21 01/16/20 08:21 01/16/20 08:21 Oxygen Delivery Method Room Air Weight: 205 lb 4.006 oz Body Mass Index (BMI) 35.8 General: Alert, Oriented x3, Cooperative HEENT: Atraumatic, Normocephalic Oral: Moist Mucosa Neck: Supple, Thyroid Normal Size and Texture Lungs: Clear to auscultation, Normal air movement Cardiovascular: Regular rate, Regular Rhythm Abdomen: Soft, Non Tender Extremities: No edema Skin: No rashes Musculoskeletal: No Tenderness to Palpation of Joints or Extremities Neurological: Neuro grossly intact Psych/Mental Status: Normal Affect Laboratory Results 01/15/20 10:25: COVID-19 (RAFI) Not Detected 01/16/20 08:14: Urine Test Negative 01/16/20 08:15: WBC 9.6, RBC 5.33, Hgb 14.6, Hct 45.2, MCV 84.8, MCH 27.4, MCHC 32.3, RDW Std Deviation 41.6, RDW Coeff of Kamala 13.6, Plt Count 265, MPV 9.7 01/16/20 08:15: Blood Type Pending, Antibody Screen Pending Current Medications Lactated Ringer's () 1,000 mls @ 100 mls/hr IV .Q10H [facility] Last Admin: 01/16/20 08:38 Dose: 100 mls/hr Documented by: Assessment/Plan All Active Problems (Last Updated 12/20/19 @ 10:[address] Nuris Izaguirre MD) Sterilization (Acute) Anxiety (Acute) Hypertension (Resolved) IUD (intrauterine device) in place (Resolved) depression (Resolved) Seasonal allergies (Resolved) Vaginal bleeding (Resolved) 29-year-old desired sterilization Plan laparoscopic bilateral salpingectomy After discussing the patient's diagnosis and treatment plan options, patient wishes to proceed with surgical management. I have discussed with the patient the risks, benefits, and alternatives of the procedure which include but are not limited to risks of anesthesia, bleeding, infection, possible damage to bowel, bladder, or surrounding vasculature which could lead to additional surgery to evaluate any complications. Patient agrees to procedure and wishes to proceed. ACOG/uptodate references given for additional information regarding procedure.
--- NOTE | 2020-01-16 08:54 | OP.PCM_ITS ---
Problem List (1) Sterilization Status: Acute Comment: plan laparoscopic BS. (2) Chronic hypertension Status: Chronic Report of Operation Date of Procedure: 01/16/20 Pre-Operative Diagnosis: desired sterilization Post-Operative Diagnosis: same Surgery/Procedure Performed:: Laparoscopic bilateral salpingectomy Description of Surgical Findings:: nl tubes ovaries upper abdomen Type of Anesthesia:: General Special Medications: none Specimen's removed: tubes Drains: none Estimated Blood Loss (mL): minimal Fluids Replaced: crystalloid Description of Procedure: Patient was taken in the operating room and was placed under general anesthesia was prepped and draped in normal sterile fashion in the dorsal lithotomy position. Bladder was drained of clear urine and SCDs were on preoperatively. Uterus was sounded and a uterine manipulator was placed after dilating. Attention was then paid to the abdominal portion of the procedure and the um bilicus was elevated with towel clamps and injected with Marcaine and after a 5 mm incision was made and the Veress needle was entered into the abdomen confirmed to be intra-abdominal with a low opening pressure of less than 5 mmHg. Abdomen was insufflated with CO2 gas and a 5 mm optical trocar was placed under direct visualization. A left lower quadrant 5 mm port and a 5 mm port suprapubically were placed under direct visualization. Uterus was well visualized and bilateral fallopian tubes identified and bilateral tubes were elevated and transecting across the mesosalpinx and the attachment to the uterine corpus bilaterally the tubes were removed without complication. Excellent hemostasis was noted. Fallopian tubes were removed through the lower port sites without complication. Liver and upper abdomen were visualized notably within normal limits and no other gross abnormalities were seen in the abdomen. All instruments removed from the abdomen after gas was desufflated. Port sites were closed with 3-0 Monocryl Steri's and op sites were applied. All instruments removed from the vagina and patient was awoken and taken recovery in stable condition. Grafts/Implants Used: none - Complications none Multi Select Codes - Urinary/Genital Urinary/Genital CPT Codes: 19298 Laproscopic BS/O
--- NOTE | 2020-01-16 08:57 | DCINST_ITS ---
Discharge Diet: No Restrictions - Increase fluid intake for the next 48 hours. Discharge Activity: Return to Normal Activity, May Drive - when you are no longer taking narcotic pain medications., May Shower, May Take a Tub Bath - in 7 days Additional Activity Instructions:: Ambulate often the next week after surgery. Nothing in the vagina for 5 days. Call your doctor if your incision/area has: Continuous Slow Oozing, Sudden Increased Bleeding, Increased Pain/ Swelling, Increased Redness, Foul Smelling Discharge Call your doctor if you observe: Fever of 101 or Higher Allergies/Adverse Reactions: Allergies lisinopril Allergy (Verified 01/16/20 08:05) Other COUGH bupropion [From Wellbutrin] Adverse Reaction (Verified 01/16/20 08:05) mental fog Medications to take at Discharge Levocetirizine Dihydrochloride 1 tab PO DAILY 11/27/18 Citalopram Hydrobromide [Citalopram HBr] 40 mg PO DAILY 11/01/19 Labetalol [Trandate (Beta Toi)] 200 mg PO BID 11/01/19 buspirone 5 mg tablet 7.5 mg PO BID #90 tab 12/28/19 Naproxen [Naprosyn] 250 - 500 mg PO Q8H PRN PRN #30 tab 01/16/20 Oxycodone HCl/Acetaminophen [Percocet 5-325] 1 - 2 tablet PO Q6H PRN PRN 7 Days #15 tablet 01/16/20 The following prescriptions were given: Naproxen [Naprosyn] 250 - 500 mg PO Q8H PRN PRN #30 tab PRN Reason: MILD PAIN Transmission Status: Pending to [facility] Oxycodone HCl/Acetaminophen [Percocet 5-325] 1 - 2 tablet PO Q6H PRN PRN 7 Days #15 tablet PRN Reason: Pain Transmission Status: Sent to [facility] Orders to be completed after discharge: Type & Screen - PAT ONLY Time Frame: 01/16/20, Facility: [facility], Location: [facility] Primary Care Physician: Joni Adamson MD [Primary Care Provider] - Test Results: Test results from this visit will be discussed in further detail at your follow- up appointment, if applicable. Please Follow Up With: Nuris Izaguirre MD - [phone]
--- NOTE | 2020-01-16 09:30 | FALS_PTH ---
PATIENT: PIETER KELLER [place] [facility] [place][id number] AGE/SX: 29/F ROOM: RE01/16/[address]: Dr. Nuris Izaguirre MD : 1990 BED: DIS: 01/16/2020 SPEC #: [id number] RECD: 01/16/20 14:05 STATUS: JELANI MURTAZA #: [id number] HERNESTO: 01/16/20 09:[address]: Nuris Izaguirre DEPT: SURGICAL PATHOLOGY RECD BY: Memo Reyes ENTERED: 01/17/20 08:13 SP TYPE: FALL TUBES OTHR DR: Dr. Joni Adamson MD Tissues: Fallopian tube Procedures: Surgery Specimen Level II HEADER OPERATION: Laparoscopic salpingectomy PRE-OP DIAGNOSIS: Sterilization TISSUE SUBMITTED: Bilateral fallopian tubes MICROSCOPIC DIAGNOSIS Bilateral fallopian tubes, salpingectomy: Bilateral fallopian tubes including fimbrial ends, no pathologic diagnosis. SJ:ubaldo 01/18/20 MICROSCOPIC DESCRIPTION Slides are reviewed. GROSS DESCRIPTION Received in fixative is one container labeled with the patient's name and designated bilateral fallopian tubes. The specimen consists of bilateral fallopian tubes including fimbrial ends measuring 6 cm in length and 0.5 cm in diameter and 5.5 cm in length and 0.6 cm in diameter. The fallopian tubes are not identified as right or left. Sections reveal unremarkable cut surfaces. Philosophy Instructor sections are submitted in two cassettes with each cassette containing one fallopian tube. / JACKLYN:ubaldo 01/17/20 TC:4 CPT: 96188 x2
[2020-01-16] MEDS: Bupivacaine 0.25% 30 ML Vial (09:52)
[2020-01-16 10:12] VITALS: BP 123/83; BP 127/88; PULSE 70; RESP 16; TEMP 36.2; O2SAT 94
[2020-01-16 10:28] VITALS: BP 120/80; BP 127/88; PULSE 61; RESP 16; O2SAT 94
[2020-01-16 10:42] VITALS: BP 111/75; BP 127/88; PULSE 87; RESP 16; O2SAT 97
[2020-01-16 10:52] VITALS: BP 106/76; BP 127/88; PULSE 67; RESP 16; TEMP 35.9; O2SAT 96
[2020-01-16 11:39] VITALS: BP 110/70; BP 127/88; PULSE 76; RESP 16; TEMP 36.3; O2SAT 97
== END 2020-01-16 11:42 | disposition home or self-care (01) ==
LOC: SDC 08:03 → AC 08:03
PROVIDERS: Anesthesiology; PCP Family Medicine; Referring Provider Obstetrics & Gynecology; Visit Provider Obstetrics & Gynecology
PROC: (CPT 58661; principal; 2020-01-16 09:15)
DX: Z30.2 Encounter for sterilization (principal); I10 Essential (primary) hypertension; F41.9 Anxiety disorder, unspecified; J30.2 Other seasonal allergic rhinitis; Z79.899 Other long term (current) drug therapy; Z87.891 Personal history of nicotine dependence; Z11.59 Encounter for screening for other viral diseases
CPT/HCPCS: 00840; 58661; 36415; 81025; 85027; 86850; 86870; 86900; 86901; 86905; 87635; 88302; G2023; J7120; J2405; U0003

== ENCOUNTER 2020-07-01 10:17 | Emergency (ER) | payer OTHER, SELFPAY ==
[2020-01-31 12:48] VITALS: BMI 35.8
[2020-07-01 10:18] VITALS: BP 136/95; PULSE 86; RESP 18; TEMP 37.1; O2SAT 97; BMI 38.2
[2020-07-01 10:21] VITALS: BP 136/95; PULSE 86; RESP 18; TEMP 37.1; O2SAT 97
--- NOTE | 2020-07-01 10:29 | CT_ITS ---
STUDY: CT ABDOMEN AND PELVIS WITH CONTRAST REASON FOR EXAM: Female, 29 years old. RLQ PAIN RADIATION DOSAGE (If Supplied By Facility): CTDIvol = ( 17.37 ) mGy, DLP = ( 1161.10 ) mGycm TECHNIQUE: Transaxial images were obtained from the dome of the diaphragm to the symphysis pubis with oral contrast. Oral and amp;amp; IV Gastrografin and amp;amp; 100mL Isovue-370 was administered. Sagittal and coronal images were reconstructed. Individualized dose optimization techniques were used for this CT. COMPARISON: None. FINDINGS: 3 mm left lower lobe nodule on series 2 image 19. 3 mm right lower lobe nodule on image 4. The visualized portions of the heart are within normal limits. Normal liver. Normal gallbladder and extrahepatic biliary system. The spleen is mildly enlarged measuring up to 15 cm. 5 mm hypodense lesion in the pancreatic neck is too small to characterize. Normal bilateral adrenal glands. Small left renal upper pole cyst. There are multiple bilateral nonobstructing renal stones. No hydronephrosis. Normal visualized stomach. Normal small intestine. Normal colon. The appendix is visualized and appears normal. Normal abdominal aorta. Normal inferior vena cava. Normal retroperitoneum. Normal urinary bladder. Normal abdominal wall. Normal osseous structures. CT/Abdomen/Pelvis WITH Contrast IMPRESSION: Mild splenomegaly. Otherwise, no acute abdominal or pelvic pathology. Normal appendix. There are multiple bilateral nonobstructing renal stones. No hydronephrosis. 3 mm lung nodules. If high risk for developing pulmonary malignancy continued annual chest CT is recommended. Electronically Signed: Brandyn Valladares, at 13:36 EST Tel , Service support ,
[2020-07-01] MEDS: 0.9% Normal Saline 1,000 ML 1000 ML IV (10:41)
[2020-07-01] MEDS: Morphine 4 MG/ML Syringe IV (10:41)
[2020-07-01] MEDS: Ondansetron 4 MG/2 ML Vial IV (10:41)
[2020-07-01 10:55] LABS: Mucous, Urine 0 SEEN /hpf (<or=2+)
[2020-07-01 10:57] LABS: Absolute Lymphocyte Count 2.08 X10^3/uL (0.83-4.51); Absolute Neutrophil Count 5.5 X10^3/uL (2.0-7.7); Basophil# 0.07 X10^3/uL; Basophil% 0.8 % (0-1); Eosinophil# 0.48 X10^3/uL; Eosinophils% 5.5 % (0-5); Hemoglobin 14.5 g/dL (12.0-15.0); Lymphocyte # 2.08 X10^3/ul (4.0); Lymphocyte % 23.9 % (19-41); Mean Corp Hgb Conc 31.5 g/dL (32-36); Mean Corpuscular Hgb 25.8 pg (27.0-32.0); Mean Platelet Vol. 9.9 fl (6.2-12.0); Monocyte# 0.49 X10^3/uL; Monocyte% 5.6 % (0-10); NRBC Flagged by Analyzer 0 % (0-5); Neutrophil # 5.52 X10^3/uL (2.7-7.7); Neutrophil % 63.5 % (47-70); Platelet Count 275 K/mm3 (150-450); RBC Distribution Width CV 13.1 % (11.6-14.6); RBC Distribution Width SD 39.1 fl (35.1-43.9); Red Blood Count 5.61 M/mm3 (4.2-5.4); White Blood Count 8.7 K/mm3 (4.4-11.0)
[2020-07-01 10:58] LABS: Color, Urine Red (Yellow); Glucose, Dipstick Normal (Normal); Ketone-Dipstick 5 mg/dl (Negative); Leukocyte Esterase-Dipstick 100 /ul (Negative); Nitrite-Dipstick Negative (Negative); Occult Blood-Urine 250 /ul (Negative); Protein-Dipstick 500 mg/dl (Negative); Urine Bilirubin Dipstick Negative (Negative); Urine Clarity Cloudy (Clear); Urine Urobilinogen Normal (Normal)
[2020-07-01 11:03] LABS: Internal QC Validated? YES +Cl - CLEAR BKGD; Pregnancy, Serum, hCG Quali. NEGATIVE Negative
[2020-07-01 11:03] LABS: Bacteria 1+ /hpf (None Seen); Red Blood Cells-Urine 50-100 SEEN /hpf (0-5); Squamous Epithelial Cells - UA 0-5 SEEN /hpf (5-10); White Blood Cells 10-25 SEEN /hpf (0-5)
[2020-07-01 11:08] LABS: Anion Gap 5 (5-15); BUN 11 mg/dL (7-18); BUN/Creat Ratio 13.9 RATIO (10-20); Chloride 109 mmol/L (98-107); Creatinine, Serum 0.79 mg/dL (0.55-1.02); EST Glomerular Filtration Rate 91 mL/min (>60); Est Glom Filt Rate - Afr Amer 110 mL/min (>60); Estimated Creatinine Clearance 86.92 ml/min; Glucose 93 mg/dL (74-106); Sodium Level 141 mmol/L (136-145)
--- NOTE | 2020-07-01 11:20 | ED.DCSUM_ITS ---
- ER Visit Summary Date of Service: 07/01/20 Chief Complaint: Abdominal pain History of Present Illness: The patient is a [address] Mahad garcia. She reports that she has right lower quadrant abdominal pain that began today. It is a aching, sharp pain that waxes and wanes. Is 10 of 10 at worst and 7 out of 10 currently. Is worsened by nothing relieved by nothing. Said nausea without vomiting. No diarrhea. Her last bowel was yesterday. No melena medic easier. No dysuria or frequency. States that she began her menstrual period today. Physical Examination: Vitals: Stable. Afebrile. General: Well-nourished and well-developed. Head: Normocephalic atraumatic. Neck: Supple, no lymphadenopathy. No JVD. Nontender. Cardiovascular: Regular rate and rhythm. No murmurs. Respiratory: No respiratory distress. Clear to auscultation bilaterally. Abdominal: Soft, mild tenderness palpation the right lower quadrant, nondistended, normal bowel sounds. No guarding, rebound, or peritoneal signs. Back: Nontender. Extremities: Nontender, no edema. Skin: Normal color, no rash. Neurologic: Alert and oriented ?3. Cranial nerves II through XII are intact. Normal strength and sensation. Psych: Normal affect. Test Results: CBC shows eosinophils of 6. Chem-7 shows a chloride of 109. Urinalysis shows blood, 10-25 white blood cells, 50-100 red blood cells. She is on her menses. test is negative. Clinical Impression(s) from Imaging Studies Abdomen/Pelvis CT 07/01/20 10:29 IMPRESSION: Mild splenomegaly. Otherwise, no acute abdominal or pelvic pathology. Normal appendix. There are multiple bilateral nonobstructing renal stones. No hydronephrosis. 3 mm lung nodules. If high risk for developing pulmonary malignancy continued annual chest CT is recommended. Electronically Signed: Brandyn Valladares, at 13:36 EST Tel , Service support , Emergency Department Course and Treatment: Patient was treated morphine and Zofran IV. She has no urinary complaints. I do not think that she has a urinary tract infection. Treatment Plan: Patient be discharged with Bentyl and Zofran. Instructed to follow-up with her primary care physician 1 to 2 days if not improving. Return to the emergency department for any worsening symptoms. Disposition: To home in improved and stable condition. Impression: 1. Abdominal pain, uncertain cause. This note was generated with GL 2ours dictation software. It may contain incorrect words, spelling, and punctuation that were not noted in review of the chart prior to signing ED Disposition - Plan for ED Patient: Disposition: Home or Assisted Living Instructions: ED Abdominal Pain Unkn Cause Fem Prescriptions: Dicyclomine HCl [Bentyl] 20 mg PO TIDAC #20 cap Prescription Printed Ondansetron [Zofran Odt] 4 mg PO Q8H PRN PRN #10 tab PRN Reason: Nausea Prescription Printed Referrals: Joni Adamson MD [Primary Care Provider] - 1-2 Days if not improving
[2020-07-01 13:08] VITALS: BP 125/75; PULSE 69; RESP 16; O2SAT 98
[2020-07-01 14:35] VITALS: BP 151/92; PULSE 71; RESP 16; O2SAT 98
--- NOTE | 2020-07-01 14:37 | ED.RN ---
THIS NURSE REVIEWED D/C INSTRUCTIONS WITH PT. PT VERBALIZED UNDERSTANDING OF INSTRUCTIONS. IV D/C. IV CATHETER INTACT. PT TOLERATED WELL. PT DENIES FURTHER NEEDS OR QUESTIONS AT THIS TIME
== END 2020-07-01 14:38 | disposition home or self-care (01) ==
PROVIDERS: Emergency Provider Emergency Medicine; PCP Family Medicine
DX: R10.31 Right lower quadrant pain (principal); N20.0 Calculus of kidney; R91.8 Other nonspecific abnormal finding of lung field; Z87.442 Personal history of urinary calculi
CPT/HCPCS: 74177; 80048; 81001; 84703; 85025; 96361; 96374; 96375; 99285; J7030; Q9967; A4216; J2405

== ENCOUNTER → 2020-08-13 12:43 | Outpatient (CLI) | payer OTHER, SELFPAY ==
--- NOTE | 2020-08-13 12:45 | US_ITS ---
STUDY: ULTRASOUND OF THE FEMALE PELVIS - COMPLETE REASON FOR EXAM: Female, 30 years old. RT PELVIC PAIN INTERMITTENT LMP: TECHNIQUE: Transabdominal and transvaginal TECHNICAL QUALITY: Adequate. COMPARISON: None. FINDINGS: The uterus is anteverted and is in a midline position. The uterus measures 11.13 x 6.8 x 5 cm. Normal uterine cervix. The endometrium measures 8 mm in thickness, and is hyperechoic. There is no demonstrated endometrial mass. There is no demonstrated myometrial mass. I.U.D. - The patient does not have an I.U.D. Probable tiny nabothian cyst in the lower uterine segment measuring 8 x 7 x 6 mm The right ovary is visualized. The right ovary measures 4.2 x 3.9 x 2.9 cm. There is a small hypoechoic nodule with hypervascularity measuring 1.8 x 2.1 x 1.7 cm possibly representing involuting cyst. There is no visualized right adnexal mass or complex lesion. There is normal arterial and normal venous vascularity. The left ovary is visualized. The left ovary measures 3.6 x 3.8 x 2.6 cm. There is no left ovarian cyst or ovarian mass. There is no visualized left adnexal mass or complex lesion. There is normal arterial and normal venous vascularity. There is no fluid in the cul-de-sac. US/Pelvic (Non ) IMPRESSION: Probable involuting cyst in the right ovary measuring 1.8 x 2.1 x 1.7 cm. Clinical correlation recommended No evidence for ovarian torsion. Electronically Signed: eZnon Ott MD at 17:48 EST , Service support ,
--- NOTE | 2020-08-13 12:45 | US_ITS ---
STUDY: ULTRASOUND OF THE FEMALE PELVIS - COMPLETE REASON FOR EXAM: Female, 30 years old. RT PELVIC PAIN INTERMITTENT LMP: TECHNIQUE: Transabdominal and transvaginal TECHNICAL QUALITY: Adequate. COMPARISON: None. FINDINGS: The uterus is anteverted and is in a midline position. The uterus measures 11.13 x 6.8 x 5 cm. Normal uterine cervix. The endometrium measures 8 mm in thickness, and is hyperechoic. There is no demonstrated endometrial mass. There is no demonstrated myometrial mass. I.U.D. - The patient does not have an I.U.D. Probable tiny nabothian cyst in the lower uterine segment measuring 8 x 7 x 6 mm The right ovary is visualized. The right ovary measures 4.2 x 3.9 x 2.9 cm. There is a small hypoechoic nodule with hypervascularity measuring 1.8 x 2.1 x 1.7 cm possibly representing involuting cyst. There is no visualized right adnexal mass or complex lesion. There is normal arterial and normal venous vascularity. The left ovary is visualized. The left ovary measures 3.6 x 3.8 x 2.6 cm. There is no left ovarian cyst or ovarian mass. There is no visualized left adnexal mass or complex lesion. There is normal arterial and normal venous vascularity. There is no fluid in the cul-de-sac. US/Transvaginal Non- IMPRESSION: Probable involuting cyst in the right ovary measuring 1.8 x 2.1 x 1.7 cm. Clinical correlation recommended No evidence for ovarian torsion. Electronically Signed: Zenon Ott MD at 17:48 EST , Service support ,
== END ==
LOC: OPUS 12:44
PROVIDERS: PCP Family Medicine; Referring Provider Obstetrics & Gynecology; Visit Provider Obstetrics & Gynecology
DX: R10.2 Pelvic and perineal pain (principal)
CPT/HCPCS: 76830; 76856; 93976

== ENCOUNTER → 2020-12-10 14:04 | Outpatient (CLI) | payer OTHER, SELFPAY ==
[2020-12-09 09:47] VITALS: BMI 38.2
--- NOTE | 2020-12-10 14:06 | US_ITS ---
STUDY: ULTRASOUND OF THE FEMALE PELVIS - COMPLETE REASON FOR EXAM: Female, 30 years old. Right pelvic pain. LMP: 12/09/2020. TECHNIQUE: Transabdominal and Transvaginal TECHNICAL QUALITY: Adequate. COMPARISON: Comparison is made with prior examination dated 08/13/2020. FINDINGS: The uterus is anteverted and is in a midline position. The uterus measures 9 cm x 6.6 cm x 4.8 cm. There is a Nabothian cyst of the cervix. The endometrium measures 5 mm in thickness, and is hyperechoic. There is no demonstrated endometrial mass. There is no demonstrated myometrial mass. I.U.D. - The patient does not have an I.U.D. The right ovary is visualized. The right ovary measures 2.9 cm x 3 cm x 2.8 cm. There is a 2.7 cm x 1.7 cm x 1.7 cm cyst in the right ovary. There is no visualized right adnexal mass or complex lesion. There is normal arterial and normal venous vascularity. The left ovary is visualized. The left ovary measures 3.1 cm x 2.1 cm x 2.1 cm. There is no left ovarian cyst or ovarian mass. There is no visualized left adnexal mass or complex lesion. There is normal arterial and normal venous vascularity. There is no fluid in the cul-de-sac. The pre void volume of the bladder was 202 ml. Polycystic ovary disease: No. US/Pelvic (Non ) IMPRESSION: 2.7 cm x 1.7 cm x 1.7 cm cyst in the right ovary. Electronically Signed: Matti Scherer MD at 15:16 EDT , Service support ,
--- NOTE | 2020-12-10 14:06 | US_ITS ---
STUDY: ULTRASOUND OF THE FEMALE PELVIS - COMPLETE REASON FOR EXAM: Female, 30 years old. Right pelvic pain. LMP: 12/09/2020. TECHNIQUE: Transabdominal and Transvaginal TECHNICAL QUALITY: Adequate. COMPARISON: Comparison is made with prior examination dated 08/13/2020. FINDINGS: The uterus is anteverted and is in a midline position. The uterus measures 9 cm x 6.6 cm x 4.8 cm. There is a Nabothian cyst of the cervix. The endometrium measures 5 mm in thickness, and is hyperechoic. There is no demonstrated endometrial mass. There is no demonstrated myometrial mass. I.U.D. - The patient does not have an I.U.D. The right ovary is visualized. The right ovary measures 2.9 cm x 3 cm x 2.8 cm. There is a 2.7 cm x 1.7 cm x 1.7 cm cyst in the right ovary. There is no visualized right adnexal mass or complex lesion. There is normal arterial and normal venous vascularity. The left ovary is visualized. The left ovary measures 3.1 cm x 2.1 cm x 2.1 cm. There is no left ovarian cyst or ovarian mass. There is no visualized left adnexal mass or complex lesion. There is normal arterial and normal venous vascularity. There is no fluid in the cul-de-sac. The pre void volume of the bladder was 202 ml. Polycystic ovary disease: No. US/Transvaginal Non- IMPRESSION: 2.7 cm x 1.7 cm x 1.7 cm cyst in the right ovary. Electronically Signed: Matti Scherer MD at 15:16 EDT , Service support ,
== END ==
LOC: US 14:05
PROVIDERS: PCP Family Medicine; Visit Provider Nurse Practitioner Women's Health
DX: R10.2 Pelvic and perineal pain (principal)
CPT/HCPCS: 76830; 76856; 93976

== ENCOUNTER 2021-02-04 08:14 | Day surgery (SDC) | payer OTHER, SELFPAY ==
[2021-01-14 15:24] VITALS: BMI 38.2
--- NOTE | 2021-01-31 13:42 | EKG12_ITS ---
Test Reason : PRE OP Blood Pressure : / mmHG Vent. Rate : 071 BPM Atrial Rate : 071 BPM P-R Int : 148 ms QRS Dur : 088 ms QT Int : 382 ms P-R-T Axes : 003 -11 -04 degrees QTc Int : 415 ms Normal sinus rhythm Low voltage QRS Borderline ECG Confirmed by PATRICIA BECERRA, PAULA ([id number]), acquisitions editor JOSE EPPERSON ([id number]) on 02/03/2021 10:50:02 AM Referred By: Nuris Izaguirre Confirmed By:PAULA GOMEZ MD
[2021-01-31 14:16] LABS: Absolute Lymphocyte Count 2.16 X10^3/uL (0.83-4.51); Absolute Neutrophil Count 5.5 X10^3/uL (2.0-7.7); Basophil# 0.05 X10^3/uL; Basophil% 0.6 % (0-1); Eosinophil# 0.41 X10^3/uL; Eosinophils% 4.6 % (0-5); Hematocrit 42.8 % (37-47); Hemoglobin 13.5 g/dL (12.0-15.0); Lymphocyte # 2.16 X10^3/ul (0.83-4.51); Lymphocyte % 24.5 % (19-41); Mean Corp Hgb Conc 31.5 g/dL (32-36); Mean Corpuscular Volume 79.1 fL (81-99); Mean Platelet Vol. 10.1 fl (6.2-12.0); Monocyte# 0.64 X10^3/uL; Monocyte% 7.3 % (0-10); NRBC Flagged by Analyzer 0 % (0-5); Neutrophil # 5.51 X10^3/uL (2.7-7.7); Neutrophil % 62.4 % (47-70); Platelet Count 290 K/mm3 (150-450); RBC Distribution Width CV 13.6 % (11.6-14.6); RBC Distribution Width SD 38.4 fl (35.1-43.9); Red Blood Count 5.41 M/mm3 (4.2-5.4); White Blood Count 8.8 K/mm3 (4.4-11.0)
[2021-01-31 14:42] LABS: AST(SGOT) 17 U/L (15-37); Alanine Aminotransfer ALT/SGPT 20 U/L (13-56); Albumin, Serum 3.4 g/dL (3.2-5.0); Alkaline Phosphatase 106 U/L (45-117); Anion Gap 7 (5-15); BUN 14 mg/dL (7-18); BUN/Creat Ratio 18.3 RATIO (10-20); Calcium,Total 8.9 mg/dL (8.5-10.1); Chloride 109 mmol/L (98-107); Creatinine, Serum 0.76 mg/dL (0.55-1.02); EST Glomerular Filtration Rate 94 mL/min (>60); Est Glom Filt Rate - Afr Amer 114 mL/min (>60); Globulin 3.4 g/dL (2.2-4.2); Glucose 114 mg/dL (74-106); Potassium 4.2 mmol/L (3.5-5.1); Protein, Total 6.8 g/dL (6.4-8.2); Sodium Level 140 mmol/L (136-145)
[2021-02-04] VITALS (9 sets, daily range): BP systolic 112–156; BP diastolic 75–128; PULSE 64–88; RESP 16; TEMP 36.1–36.8; O2SAT 96–100; BMI 41.3
[2021-02-04] MEDS: Lactated Ringers 1,000 ML 100 ML IV ×2 (08:46→11:54)
--- NOTE | 2021-02-04 09:35 | OV_PTH ---
PATIENT: PIETER KELLER LOC: [facility] U#:[id number] AGE/SX: 30/F ROOM: RE02/04/[address]: Dr. Nuris Izaguirre MD : 1990 BED: DIS: 02/04/2021 SPEC #: [id number] RECD: 02/04/21 11:57 STATUS: JELANI REBraxton #: [id number] HERNESTO: 02/04/21 09:[address]: Nuris Izaguirre DEPT: SURGICAL PATHOLOGY RECD BY: Francoise Beal ENTERED: 02/04/21 13:09 SP TYPE: OVARY OTHR DR: Dr. Joni Adamson MD Tissues: Right ovary Procedures: Surgery Specimen Level IV HEADER OPERATION: Laparoscopic right oophorectomy, left ovarian cystectomy PRE-OP DIAGNOSIS: Ovarian cyst, chronic pelvic pain TISSUE SUBMITTED: Right ovary MICROSCOPIC DIAGNOSIS Right ovary oophorectomy: Follicular and corpus luteal cysts. AM:ubaldo 02/05/2021 MICROSCOPIC DESCRIPTION Slides are reviewed. GROSS DESCRIPTION Received in fixative is one container labeled with the patient's name and designated right ovary. The specimen consists of a soft to cystic ovary measuring 4 x 3 x 2.5 cm and weighing 15.5 gm. The external surface is smooth without any papillation and inked black. Serial sections reveal multiple cysts filled with clear to hemorrhagic fluid. The largest cyst measuring 2 cm in greatest dimension. Delivery Tech sections are submitted in four cassettes. / SJ:ubaldo 02/04/21 TC:5 CPT: 49335
--- NOTE | 2021-02-04 09:55 | HP.PCM_ITS ---
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: No Is patient in pain?: No Allergies lisinopril Allergy (Verified 12/09/20 09:45) Other bupropion [From Wellbutrin] Adverse Reaction (Verified 12/09/20 09:45) mental fog Medications levocetirizine 1 tab PO DAILY 11/27/18 [History Confirmed 01/14/21] labetalol 200 mg tablet 100 mg PO BID 01/31/20 [History Confirmed 01/14/21] buspirone 5 mg tablet 5 mg PO DAILY tab 12/09/20 [History Confirmed 01/14/21] desvenlafaxine 50 mg tablet,extended release 24 hr 50 mg PO DAILY 12/09/20 [History Confirmed 01/14/21] doxycycline hyclate 100 mg capsule 100 mg PO DAILY 12/09/20 [History Confirmed 01/14/21] norethindrone (contraceptive) 0.35 mg tablet 0.35 mg PO QDAY #28 tab 12/11/20 [Rx Confirmed 01/14/21] tramadol 50 mg tablet 50 mg PO BID PRN #10 tab 12/11/20 [Rx Confirmed 01/14/21] Is last menstrual period known: No Post menopausal: No Patient : No : No PFSH Medical History (Updated 01/14/21 @ 15:[address] Nuris Izaguirre MD) Anxiety Hypertension depression Seasonal allergies Surgical History (Updated 01/14/21 @ 15:[address] 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 she has cramping and shooting pain. she is also having breakthrough irritbaility on her new mood medications. she has taken pain medicine with minial relief. Female Reproductive History Cycle Length: 21-35 Bleeding Duration: 5 Questions: metorrhagia: No, sexually active: Yes, dyspareunia: No and PCB: No Menopausal Symptoms: No hot flashes, No night sweats, No weight change, No mood changes, No difficulty concentrating, No sleep problems and No change in libido Pregancy History 3 Elective abortions Hx Para 3 Spontaneous abortions Hx # Term Pregnancies Ectopic pregnancies Hx # Pregnancies Multiple births # of living children 3 Past Pregnancies Del. Date Name GA/Weeks Outcome Route Bth Weight Infant Gen Labor Lgth Anesthesia Del Locat Provider FOB 12/14/13 Abraham 39 live - full term 6lbs 14oz Male 16 hours epidural [facility] Dr. Izaguirre 10/14/15 Alyssia 39 live - full term 7lbs 5.3oz Female 8 hours epidural [facility] Dr. Sprague 11/02/19 Maribell 37 live - full term Female epidural [facility] DARIA Delivery Date: 12/14/13 High blood pressure at the end of , was induced because of it. Zeny Villafanah Delivery Date: 10/14/15 Elevated blood pressure. depression Curry Villafananah Delivery Date: 11/02/19 IoL HTN w. SI jessica e Shilpi Daly Const Constitutional: Denies fatigue, fever(s), headache(s), increased appetite, poor appetite, night sweats, weight gain or weight loss ENT ENT: Reports system reviewed and no additional complaints, except as documented Cardio Card: Denies chest pain Resp Resp: Denies cough or dyspnea GI GI: Reports as per HPI; Denies abdominal pain, constipation, nausea or vomiting : Reports as per HPI; Denies difficulty voiding, dysuria, hot flashes, nipple discharge, urinary frequency, urinary incontinence, urinary hesitancy, urinary urgency, vaginal discharge, vaginal dryness, vaginal odor or vaginal pruritus Musc Musc: Denies arthralgias, back pain or muscle weakness Skin Skin/Breast: Denies change in hair, breast mass, breast pain, breast skin changes or nipple discharge Neuro Neuro: Reports system reviewed and no additional complaints, except as documented Psych Psych: Reports system reviewed and no additional complaints, except as documented; Denies change in libido or difficulty concentrating Endo Endo: Denies cold intolerance, excessive sweating, heat intolerance or polydipsia Ari/Lymph Hematologic/Lymphatic: Denies easy bleeding, Denies easy bruising and Denies lymphadenopathy Exam Const General: cooperative, healthy appearing, comfortable, no acute distress and well developed Nutritional Appearance: average body habitus Orientation: alert [facility] Head: normal to inspection and normocephalic Ears: hearing grossly normal bilaterally and external ears normal Nose: external nose normal and nares normal Face and sinus: normal facial exam Neck Neck: normal visual inspection and trachea midline Thyroid: thyroid normal Chest Chest palpation & inspection: normal inspection of the chest Resp Effort & Inspection: normal respiratory effort Auscultation: clear to auscultation bilaterally Cardio Rate: regular rate Rhythm: regular rhythm Heart Sounds: S1 normal and S2 normal GI Inspection: normal to inspection and non-distended Palpation: soft and no hepatosplenomegaly Musc Other: gross motor intact no deficits, full bilateral strength Skin General: no rashes or lesions noted Neuro General: patient alert, patient awake, moves all extremities and no focal motor deficits Motor: muscle tone normal throughout Extrem General: normal to inspection and no pedal edema Psych Appearance: grossly normal Mental Status: mental status grossly normal Affect: normal affect Speech and Movement: speech and movement normal Coding Level of Care Code Off vis,est,level 5 Diagnoses Ovarian cyst N83.209 Chronic pelvic pain in female R10.2; G89.29 Assessment and Plan Assessment and Plan (1) Ovarian cyst: Status: Acute Comment: ovarian suppression tried, persistent cyst with pain (2) Chronic pelvic pain in female: Status: Chronic Comment: failed medical management. plan laparoscopic RO. Plan - Dr. Nuris Izaguirre MD: After discussing the patient's diagnosis and treatment plan options, patient wishes to proceed with surgical management. I have discussed with the patient the risks, benefits, and alternatives of the procedure which include but are not limited to risks of anesthesia, bleeding, infection, possible damage to bowel, bladder, or surrounding vasculature which could lead to additional surgery to evaluate any complications. Patient agrees to procedure and wishes to proceed. ACOG/uptodate references given for additional information regarding procedure. UPDATE- I have seen the patient and performed any clinically relevant updates to the history and physical exam. Nuris Izaguirre MD Assessment & Plan Assessment/Plan (1) Chronic pelvic pain in female: (2) Ovarian cyst:
--- NOTE | 2021-02-04 11:21 | OP.PCM_ITS ---
Problems Associated Problem List Diagnoses (1) Ovarian cyst: (2) Chronic pelvic pain in female: Report of Operation Date of Procedure: 02/04/21 Pre-Operative Diagnosis: see problem list Post-Operative Diagnosis: same Surgery/Procedure Performed:: Laparoscopic left ovarian cystotomy right oophorectomy Description of Surgical Findings:: Enlarged simple cyst physiologic left ovary right multicystic ovary guest specialist: Jesse Cooley Type of Anesthesia: General and Local Special Medications: none Specimen's removed: Right ovary Drains: none Estimated Blood Loss (mL): 50 Fluids Replaced: crystalloid Description of Procedure: Patient was taken in the operating room and was placed under general anesthesia was prepped and draped in normal sterile fashion in the dorsal lithotomy position. Bladder was drained of clear urine and SCDs were on preoperatively. Uterus was sounded and a uterine manipulator was placed after dilating. Attention was then paid to the abdominal portion of the procedure and the umbilicus was elevated with towel clamps and injected with Marcaine and after a 12 mm incision was made and the Veress needle was entered into the abdomen confirmed to be intra-abdominal with a low opening pressure of less than 5 mmHg. Abdomen was insufflated with CO2 gas and a 12 mm optical trocar was placed under direct visualization. A right and left lower quadrant 5 mm ports were placed under direct visualization. Uterus was well visualized and bilateral ovaries were identified and the right infundibulopelvic ligament was transected across using the LigaSure device followed by transecting across the broad ligament to the attachment to the uterine corpus and the right ovary was removed without complication. Left ovarian cyst was opened and drained for clear serous fluid confirming physiologic ovulation cyst. Excellent hemostasis was noted. Specimens were removed through the umbilical port site through a bag without any intra-abdominal spillage of contents. The fascial incision was closed using the Favian Warner and an 0 Vicryl. Liver and upper abdomen were visualized notably within normal limits and no other gross abnormalities were seen in the abdomen. All instruments removed from the abdomen after gas was desufflated. Port sites were closed with 3-0 Monocryl Steri's and op sites were applied. All instruments removed from the vagina and patient was awoken and taken recovery in stable condition. Grafts/Implants Used: none Complications none Admit VTE Documentation VTE Present on Admission: No VTE Mechan Device Prophylaxis: SCD's Procedures Urinary/Genital [id number]: 65524 Laproscopic BS/O
--- NOTE | 2021-02-04 11:27 | DCINST_ITS ---
Discharge Instructions Diet Discharge Diet: No restrictions Activity Discharge Activity: Return to Normal Activity, May Not Drive (for 2 weeks or while taking narcotic pain meds.), May Shower and May Take a Tub Bath (in 7 days) May resume sexual activity in: 1 week Weight Bearing Status: Full weight bearing Dressing / Incision Call your doctor if your incision/area has: Continuous Slow Oozing, Sudden Increased Bleeding, Increased Pain/ Swelling, Increased Redness and Foul Smelling Discharge Call your doctor if you observe: Fever of 101 or Higher, Using more than 1 pad per hour, Shortness of breath, Chest pain and Uncontrolled pain Suture Line Care: Avoid Pulling/Pushing and Avoid Pinching/Bending Remove Dressing in: 1 week (if present) Cleanse incision/area with: Soap & Water and Keep Dressing Clean & Dry Follow Up Care When: Call to make an appointment with your doctor for a fu/incision check in 1- 2 weeks. Test Results: Test results from this visit will be discussed in further detail at your follow-up appointment, if applicable. Discharge Plan Admission Primary Reason for Your Visit: surgery for ovary removal Attending Provider: Nuris Izaguirre Primary Care Provider: Joni Adamson Discharge Orders/Prescriptions Prescriptions: New naproxen 250 MG tablet 250 - 500 mg PO Q8H PRN PRN (Reason: MILD PAIN) Qty: 30 RF: 1 oxycodone-acetaminophen [Endocet] 5-325 mg tablet 1 tab PO Q4H PRN (Reason: pain) 7 Days Qty: 20 RF: 0 No Action labetalol 200 mg tablet 100 mg PO BID RF: 0 buspirone 5 mg tablet 5 mg PO DAILY RF: 0 doxycycline hyclate 100 mg capsule 100 mg PO DAILY RF: 0 desvenlafaxine 50 mg tablet extended release 24 hr 50 mg PO DAILY RF: 0 levocetirizine 5 MG tablet 1 tab PO DAILY RF: 0 omeprazole 40 mg capsule,delayed release(DR/EC) 40 mg PO DAILY RF: 0 norethindrone (contraceptive) [Deborah] 0.35 mg Tablet 0.35 mg PO DAILY RF: 0 tramadol [Ultram] 50 mg tablet 50 mg PO BID PRN (Reason: pain) Qty: 10 RF: 0 Referrals / Follow Up: Joni Adamson MD [Primary Care Provider] - Nuris Izaguirre MD [STAFF PHYSICIAN] - Disposition Disposition (needs filled in before D/C Order can be placed): Home, Self Care
[2021-02-04] MEDS: HYDROcodone Bitartrate/Apap 5/325 Tablet PO (14:14)
== END 2021-02-04 15:00 | disposition home or self-care (01) ==
LOC: SDC 08:16 → AC 08:16
PROVIDERS: PCP Family Medicine; Referring Provider Obstetrics & Gynecology; Visit Provider Obstetrics & Gynecology
PROC: (CPT 58720; principal; 2021-02-04 09:20)
DX: N83.11 Corpus luteum cyst of right ovary (principal); N83.01 Follicular cyst of right ovary; I10 Essential (primary) hypertension; F41.9 Anxiety disorder, unspecified; G89.29 Other chronic pain; Z79.899 Other long term (current) drug therapy; Z87.891 Personal history of nicotine dependence
CPT/HCPCS: 58661; 36415; 80053; 85025; 86850; 86900; 86901; 86920; 86922; 88305; 93005; J7120; J2405

== ENCOUNTER 2021-12-13 09:10 | Emergency (ER) | payer OTHER, SELFPAY ==
[2021-12-13 09:11] VITALS: BP 154/101; PULSE 97; RESP 16; TEMP 36.4; O2SAT 100; BMI 35.4
--- NOTE | 2021-12-13 09:21 | CT_ITS ---
STUDY: CT ABDOMEN AND PELVIS WITH CONTRAST REASON FOR EXAM: Female, 31 years old. Abdominal pain RADIATION DOSAGE (If Supplied By Facility): CTDIvol = ( 14.43 ) mGy, DLP = ( 1240.86 ) mGycm TECHNIQUE: Transaxial images were obtained from the dome of the diaphragm to the symphysis pubis without oral contrast. IV 100mL Isovue-300 was administered. Sagittal and coronal images were reconstructed. Individualized dose optimization techniques were used for this CT. COMPARISON: 07/01/[address] dated 06/26/2018 FINDINGS: There is a stable 2.6 mm nodule within the right middle lobe and a stable 2.6 mm nodule within the right lower lobe both unchanged since June 2018 suggesting a benign process. The visualized portions of the heart are within normal limits. Normal liver. Normal gallbladder and extrahepatic biliary system. There is stable splenomegaly. Normal pancreas. Normal bilateral adrenal glands. There are bilateral nonobstructing renal calculi measuring up to 9 mm on the right and 4 mm on the left. There are bilateral renal cysts. Normal visualized stomach. Normal small intestine. There is a moderate amount of stool throughout the colon. The appendix is visualized and appears normal. Normal abdominal aorta. Normal inferior vena cava. Normal retroperitoneum. The left adnexa is enlarged measuring up to 3.5 x 4.9 x 4.6 cm. There is a round low-attenuation focus within the left adnexa measuring up to 3.7 cm. There is trace free fluid within the left lower quadrant. Normal urinary bladder. Normal abdominal wall. There are diffuse degenerative changes of the visualized lumbar spine. CT/Abdomen/Pelvis W IV Cont ONLY IMPRESSION: Enlarged left adnexa, possibly secondary to a left ovarian cyst, consider pelvic ultrasound for further evaluation. Moderate amount of stool throughout the colon. Bilateral nonobstructing renal calculi measuring up to 9 mm on the right. Stable splenomegaly. Electronically Signed: Katty Yepez MD at 10:40 EDT ,
--- NOTE | 2021-12-13 09:22 | EDS_ITS ---
HPI History of Present Illness Chief Complaint: Abd Pain Informant: patient Narrative Narrative: 81-year-old female presenting to the emergency room with 3 days of sharp stabbing right-sided abdominal pain. Patient states that it acutely got worse this morning. She notes associated nausea but no vomiting. She denies any changes in bowel or urinary symptoms. No reported fevers. She notes that she can feel the pain in her back when it is strong. She has had a prior oophorectomy on the right. PFSH PFSH Medical History Anxiety Depression Difficulty swallowing Gastric reflux Hypertension Kidney stone depression Seasonal allergies Wears contact lenses Wears glasses Home Medications levocetirizine 1 tab PO DAILY 11/27/18 [History Last Taken 11/01/19 05:45 1 tab] labetalol 200 mg tablet 100 mg PO BID 01/31/20 [History Last Taken 02/04/21 06:00] buspirone 5 mg tablet 5 mg PO DAILY tab 12/09/20 [History Last Taken Unknown] desvenlafaxine 50 mg tablet,extended release 24 hr 50 mg PO DAILY 12/09/20 [History Last Taken Unknown] doxycycline hyclate 100 mg capsule 100 mg PO DAILY 12/09/20 [History Last Taken Unknown] omeprazole 40 mg PO DAILY 01/29/21 [History Last Taken Unknown] naproxen 250 - 500 mg PO Q8H PRN PRN #30 tab 02/04/21 [Rx Last Taken Unknown] Allergy/AdvReac Type Severity Reaction Status Date / Time lisinopril Allergy Other Verified 12/13/21 09:13 bupropion [From Wellbutrin] AdvReac mental fog Verified 12/13/21 09:13 Surgical History History of bilateral salpingectomy (~01/16/20) S/p bilateral carpal tunnel release S/P removal of ovarian cyst (~02/04/21) S/P right oophorectomy (~02/04/21) S/P tonsillectomy Social History adopted: Yes household members: family housing: house number of children: 2 current occupational status: employed 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 pets and animals: Yes history of recent travel: Yes sexually active: Yes Smoking Status: Never smoker second hand exposure: No alcohol intake: never substance use type: does not use caffeine: Yes what type of physical activity do you participate in: none seatbelt use: always do you feel safe at home: Yes additional social history: -[place] ROS ROS ED Constitutional Constitutional ED: Denies chills, fever(s) or weight loss Eyes Eyes: Denies change in vision or diplopia ENT ENT ED: Denies ear pain, rhinorrhea or sore throat Cardiovascular Cardiovascular: Denies chest pain, orthopnea, palpitations or racing heartbeat Respiratory/Chest Respiratory/Chest: Denies cough, dyspnea or orthopnea Gastrointestinal Gastrointestinal: Reports abdominal pain and nausea; Denies diarrhea or vomiting Genitourinary Genitourinary ED: Denies dysuria, hematuria or urinary frequency Musculoskeletal Musculoskeletal: Denies arthralgias or myalgias Integumentary Denies abscess or rash Neurologic Neurologic: Denies headache(s) or weakness Psychiatric Psychiatric: Denies anxiety, depression, suicidal ideation or suicidal thoughts Endocrine Endocrinology: Denies polydipsia, polyphagia or polyuria Allergic/Immunologic Allergic/Immunologic ED: Denies mouth swelling, tongue swelling or urticaria EXAM Physical Exam Const Vital Signs: 12/13/21 09:11 Temperature 97.6 F L Temperature Source Temporal Pulse Rate 97 Respiratory Rate 16 Blood Pressure 154/101 H Blood Pressure Mean 118 Pulse Ox 100 Oxygen Delivery Method Room Air Positive well nourished and well developed General Appearance ED: well developed HEENT Reports normocephalic, head/scalp atraumatic, TM's clear and moist mucous membranes Negative for trauma Tympanic Membrane ED: Yes TM's clear Eyes PERRL and EOMs intact bilaterally Neck no lymphadenopathy, supple and no JVD Resp normal respiratory effort and clear to auscultation bilaterally Cardio regular rate, regular rhythm and no murmurs GI normal to inspection, nondistended, normoactive bowel sounds and non-tender Palpation: soft Back/Spine no CVA tenderness and normal ROM Extremity normal to inspection General Extremety ED: Negative for edema General Extremity: Negative for edema Neuro oriented x3 and CN's II-XII intact bilaterally Sensorium / Orientation: alert Motor Exam: strength 5/5 throughout Psych mental status grossly normal Mood & Affect: Negative for depressed or tearful Skin no rashes or lesions noted and no wounds MDM MDM MDM Narrative Medical decision making narrative: Basic blood work was obtained showed a white count of 9.2. Urinalysis is negative test is negative. CMP and lipase negative. CT the abdomen pelvis demonstrates a probable left adnexal cyst. Patient received a dose of Toradol. At this point patient will be discharged home. She is instructed to follow-up with [facility] [employer] for her cyst. Should her pain continue or worsen she should return to the emergency department for repeat examination. Patient was advised that should she need a repeat examination within 24 hours she would need to come to emergency as this is a weekend. Lab Data Attestation: I reviewed the patient's lab results. Labs: Laboratory Results - last 24 hr 12/13/21 12/13/21 12/13/21 09:30 09:30 09:30 WBC 9.2 RBC 5.88 H Hgb 15.7 H Hct 48.7 H MCV 82.8 MCH 26.7 L MCHC 32.2 RDW Std Deviation 40.9 RDW Coeff of Kamala 13.5 Plt Count 234 MPV 10.1 Immature Gran % (Auto) 0.700 Neut % (Auto) 65.7 Lymph % (Auto) 22.5 Lander % (Auto) 5.4 Eos % (Auto) 4.9 Baso % (Auto) 0.8 Absolute Neuts (auto) 6.1 Absolute Lymphs (auto) 2.07 Nucleated RBC % 0 Differential Comment SCANNED Sodium 138 Potassium 4.8 Chloride 108 H Carbon Dioxide 25.0 Anion Gap 5 BUN 12 Creatinine 0.75 Estim Creat Clear Calc 89.90 Est GFR (MDRD) Af Amer 116 Est GFR (MDRD) Non-Af 96 BUN/Creatinine Ratio 16.0 Glucose 81 Calcium 9.0 Total Bilirubin 0.60 AST 34 ALT 21 Alkaline Phosphatase 99 Total Protein 7.1 Albumin 3.3 Globulin 3.8 Albumin/Globulin Ratio 0.9 Lipase 102 Serum , Qual NEGATIVE Urine Color Urine Clarity Urine pH Ur Specific [place] Urine Protein Urine Glucose (UA) Urine Ketones Urine Occult Blood Urine Nitrite Urine Bilirubin Urine Urobilinogen Ur Leukocyte Esterase Urine RBC Urine WBC Ur Squamous Epith Cells Urine Bacteria Urine Mucus 12/13/21 09:30 WBC RBC Hgb Hct MCV MCH MCHC RDW Std Deviation RDW Coeff of Kamala Plt Count MPV Immature Gran % (Auto) Neut % (Auto) Lymph % (Auto) Lander % (Auto) Eos % (Auto) Baso % (Auto) Absolute Neuts (auto) Absolute Lymphs (auto) Nucleated RBC % Differential Comment Sodium Potassium Chloride Carbon Dioxide Anion Gap BUN Creatinine Estim Creat Clear Calc Est GFR (MDRD) Af Amer Est GFR (MDRD) Non-Af BUN/Creatinine Ratio Glucose Calcium Total Bilirubin AST ALT Alkaline Phosphatase Total Protein Albumin Globulin Albumin/Globulin Ratio Lipase Serum , Qual Urine Color Yellow Urine Clarity Clear Urine pH 7.0 Ur Specific [place] 1.010 Urine Protein 500 H Urine Glucose (UA) Normal Urine Ketones Negative Urine Occult Blood 25 H Urine Nitrite Negative Urine Bilirubin Negative Urine Urobilinogen Normal Ur Leukocyte Esterase 100 H Urine RBC 0 SEEN Urine WBC 0-5 SEEN Ur Squamous Epith Cells 10-25 SEEN Urine Bacteria 0 SEEN Urine Mucus 0 SEEN Radiography Diagnostic Testing: Clinical Impression(s) from Imaging Studies Abdomen/Pelvis CT 12/13/21 09:21 IMPRESSION: Enlarged left adnexa, possibly secondary to a left ovarian cyst, consider pelvic ultrasound for further evaluation. Moderate amount of stool throughout the colon. Bilateral nonobstructing renal calculi measuring up to 9 mm on the right. Stable splenomegaly. Electronically Signed: Katty Yepez MD at 10:40 EDT , Discharge Plan Triage Chief Complaint: Abd Pain ED Provider: Luiz Juares Dx/Rx/DC Orders Clinical Impression: Ovarian cyst, Abdominal pain Instructions: Abdominal Pain Prescriptions: No Action labetalol 200 mg tablet 100 mg PO BID RF: 0 buspirone 5 mg tablet 5 mg PO DAILY RF: 0 doxycycline hyclate 100 mg capsule 100 mg PO DAILY RF: 0 desvenlafaxine 50 mg tablet extended release 24 hr 50 mg PO DAILY RF: 0 levocetirizine 5 MG tablet 1 tab PO DAILY RF: 0 omeprazole 40 mg capsule,delayed release(DR/EC) 40 mg PO DAILY RF: 0 naproxen 250 MG tablet 250 - 500 mg PO Q8H PRN PRN (Reason: MILD PAIN) Qty: 30 RF: 1 Primary Care Provider: Joni Adamson Referrals: Joni Adamson MD [Primary Care Provider] - As Needed Nuris Izaguirre MD [STAFF PHYSICIAN] - As soon as possible Disposition Disposition: Home, Self Care
[2021-12-13 09:36] LABS: Bacteria 0 SEEN /hpf (None Seen); Mucous, Urine 0 SEEN /hpf (<or=2+); Red Blood Cells-Urine 0 SEEN /hpf (0-5)
[2021-12-13 09:38] LABS: Color, Urine Yellow (Yellow); Glucose, Dipstick Normal (Normal); Ketone-Dipstick Negative (Negative); Leukocyte Esterase-Dipstick 100 /ul (Negative); Nitrite-Dipstick Negative (Negative); Occult Blood-Urine 25 /ul (Negative); Protein-Dipstick 500 mg/dl (Negative); Urine Bilirubin Dipstick Negative (Negative); Urine Clarity Clear (Clear); Urine Urobilinogen Normal (Normal)
[2021-12-13] MEDS: Ketorolac 30 MG/ML Syringe IV (09:42)
[2021-12-13 09:48] LABS: Internal QC Validated? YES +Cl - CLEAR BKGD; Pregnancy, Serum, hCG Quali. NEGATIVE Negative
[2021-12-13 09:50] LABS: Absolute Lymphocyte Count 2.07 X10^3/uL (0.83-4.51); Absolute Neutrophil Count 6.1 X10^3/uL (2.0-7.7); Basophil# 0.07 X10^3/uL; Basophil% 0.8 % (0-1); Eosinophil# 0.45 X10^3/uL; Eosinophils% 4.9 % (0-5); Hematocrit 48.7 % (37-47); Hemoglobin 15.7 g/dL (12.0-15.0); Lymphocyte # 2.07 X10^3/ul (0.83-4.51); Lymphocyte % 22.5 % (19-41); Mean Corp Hgb Conc 32.2 g/dL (32-36); Mean Corpuscular Hgb 26.7 pg (27.0-32.0); Mean Corpuscular Volume 82.8 fL (81-99); Mean Platelet Vol. 10.1 fl (6.2-12.0); Monocyte% 5.4 % (0-10); NRBC Flagged by Analyzer 0 % (0-5); Neutrophil # 6.07 X10^3/uL (2.7-7.7); Neutrophil % 65.7 % (47-70); POSITIVE COUNT YES; Platelet Count 234 K/mm3 (150-450); RBC Distribution Width CV 13.5 % (11.6-14.6); RBC Distribution Width SD 40.9 fl (35.1-43.9); Red Blood Count 5.88 M/mm3 (4.2-5.4); White Blood Count 9.2 K/mm3 (4.4-11.0)
[2021-12-13 09:53] LABS: Squamous Epithelial Cells - UA 10-25 SEEN /hpf (5-10); White Blood Cells 0-5 SEEN /hpf (0-5)
[2021-12-13 10:01] LABS: ALB/GLOB Ratio 0.9 RATIO (0.9-2.4); AST(SGOT) 34 U/L (15-37); Alanine Aminotransfer ALT/SGPT 21 U/L (13-56); Albumin, Serum 3.3 g/dL (3.2-5.0); Alkaline Phosphatase 99 U/L (45-117); Anion Gap 5 (5-15); BUN 12 mg/dL (7-18); Chloride 108 mmol/L (98-107); Creatinine, Serum 0.75 mg/dL (0.55-1.02); EST Glomerular Filtration Rate 96 mL/min (>60); Est Glom Filt Rate - Afr Amer 116 mL/min (>60); Globulin 3.8 g/dL (2.2-4.2); Glucose 81 mg/dL (74-106); Lipase 102 U/L (73-393); Potassium 4.8 mmol/L (3.5-5.1); Protein, Total 7.1 g/dL (6.4-8.2); Sodium Level 138 mmol/L (136-145)
[2021-12-13 10:10] LABS: Differential Indicated SCAN CRITERIA MET
[2021-12-13 10:11] LABS: Differential Comment SCANNED
== END 2021-12-13 11:04 | disposition home or self-care (01) ==
PROVIDERS: Emergency Provider Emergency Medicine; PCP Family Medicine; Visit Provider Emergency Medicine
DX: N83.202 Unspecified ovarian cyst, left side (principal); R10.9 Unspecified abdominal pain; I10 Essential (primary) hypertension; K21.9 Gastro-esophageal reflux disease without esophagitis; F32.A Depression, unspecified; F41.9 Anxiety disorder, unspecified; Z87.442 Personal history of urinary calculi; Z79.899 Other long term (current) drug therapy
CPT/HCPCS: 74177; 80053; 81001; 83690; 84703; 85025; 96374; 99283; Q9967; A4216

== ENCOUNTER → 2021-12-29 | Outpatient (CLI) | payer OTHER, SELFPAY | END | disposition home or self-care (01) | LOC: LABSPEC 12-30 09:46 | PROVIDERS: PCP Family Medicine; Referring Provider Obstetrics & Gynecology; Visit Provider Obstetrics & Gynecology | DX: R30.0 Dysuria (principal) | CPT/HCPCS: 87086; 87088 ==

== ENCOUNTER → 2021-12-30 | Outpatient (CLI) | payer OTHER, SELFPAY ==
--- NOTE | 2021-12-30 13:00 | RAD_ITS ---
EXAM: XR ABDOMEN, 1 VIEW CLINICAL INDICATION: KUB- KIDNEY STONES pain TECHNIQUE: Frontal supine view of the abdomen/pelvis. This report was created using [employer] report generation technology. COMPARISON: CT 12/13/2021 FINDINGS: LOWER THORAX: No acute pathology. GASTROINTESTINAL TRACT: Unremarkable. Non-obstructive. No bowel or stomach distention. ORGANS: Multiple punctate calculi overlying both kidneys. No organomegaly. BONES/JOINTS: No acute pathology. SOFT TISSUES: No acute pathology. RAD/Abdomen Single View IMPRESSION: Multiple punctate calculi overlying both kidneys. Electronically Signed: Marshall Ferris MD at 17:38 EDT ,
== END | disposition home or self-care (01) ==
PROVIDERS: PCP Family Medicine; Referring Provider Urology; Visit Provider Urology
DX: N20.0 Calculus of kidney (principal)
CPT/HCPCS: 74018

== ENCOUNTER → 2022-01-02 | Outpatient (CLI) | payer OTHER, SELFPAY ==
--- NOTE | 2022-01-02 18:30 | US_ITS ---
EXAM: US PELVIS TRANSABDOMINAL AND TRANSVAGINAL, COMPLETE CLINICAL INDICATION: LT OV CYST TECHNIQUE: Transabdominal and transvaginal pelvic ultrasound was performed with grayscale and color Doppler imaging. Transvaginal imaging was used for better evaluation of the endometrium and adnexa. This report was created using [employer] report generation technology. COMPARISON: None. FINDINGS: UTERUS/CERVIX: Uterus measures 9.4 x 7.0 x 5.1 cm with single myometrial fibroid measuring up to 1.6 cm. Endometrial thickness is 6 mm. Nabothian cysts in the cervix. Anteverted. RIGHT OVARY: No adnexal masses. Right ovary is surgically absent. LEFT OVARY: Left ovary demonstrates normal blood flow to it; multiple left ovarian simple cysts, largest measuring up to 3.3 cm. Left ovary measures 4.4 x 4.1 x 2.9 cm. FREE FLUID: No free pelvic fluid. BLADDER: Bladder is grossly unremarkable. US/Pelvic (Non ) IMPRESSION: Simple left ovarian cysts. Electronically Signed: Xander Redman MD at 21:16 EDT ,
--- NOTE | 2022-01-02 18:31 | US_ITS ---
EXAM: US PELVIS TRANSABDOMINAL AND TRANSVAGINAL, COMPLETE CLINICAL INDICATION: LT OV CYST TECHNIQUE: Transabdominal and transvaginal pelvic ultrasound was performed with grayscale and color Doppler imaging. Transvaginal imaging was used for better evaluation of the endometrium and adnexa. This report was created using [employer] report generation technology. COMPARISON: None. FINDINGS: UTERUS/CERVIX: Uterus measures 9.4 x 7.0 x 5.1 cm with single myometrial fibroid measuring up to 1.6 cm. Endometrial thickness is 6 mm. Nabothian cysts in the cervix. Anteverted. RIGHT OVARY: No adnexal masses. Right ovary is surgically absent. LEFT OVARY: Left ovary demonstrates normal blood flow to it; multiple left ovarian simple cysts, largest measuring up to 3.3 cm. Left ovary measures 4.4 x 4.1 x 2.9 cm. FREE FLUID: No free pelvic fluid. BLADDER: Bladder is grossly unremarkable. US/Transvaginal Non- IMPRESSION: Simple left ovarian cysts. Electronically Signed: Xander Redman MD at 21:16 EDT ,
== END | disposition home or self-care (01) ==
LOC: US 18:26
PROVIDERS: PCP Family Medicine; Visit Provider Obstetrics & Gynecology
DX: N83.202 Unspecified ovarian cyst, left side (principal)
CPT/HCPCS: 76830; 76856

== ENCOUNTER → 2022-02-05 | Outpatient (CLI) | payer OTHER, SELFPAY ==
[2022-02-11 13:26] LABS: HPV APTIMA, High Risk Negative (Negative)
== END | disposition home or self-care (01) ==
LOC: LABSPEC 16:30
PROVIDERS: PCP Family Medicine; Visit Provider Obstetrics & Gynecology
DX: Z12.4 Encounter for screening for malignant neoplasm of cervix (principal)
CPT/HCPCS: 87624; 88175; G0145

== ENCOUNTER 2022-03-05 05:53 | Day surgery (SDC) | payer OTHER, SELFPAY ==
[2022-03-05] VITALS (8 sets, daily range): BP systolic 146–165; BP diastolic 96–105; PULSE 58–77; RESP 16; TEMP 36–36.6; O2SAT 95–100; BMI 35.2
[2022-03-05 06:25] LABS: Internal QC Validated? YES +Cl - CLEAR BKGD; Pregnancy, Urine Negative Negative
[2022-03-05] MEDS: Lactated Ringers 1,000 ML 15 ML IV (06:32)
--- NOTE | 2022-03-05 07:38 | PCM.OPRPT ---
Problems Associated Problem List Diagnoses (1) Bilateral renal stones: Report of Operation Date of Procedure: 03/05/22 Pre-Operative Diagnosis: Bilateral renal calculi, right greater than left Post-Operative Diagnosis: Same Surgery/Procedure Performed:: Cystoscopy, right ureteral stent insertion, right renal extracorporal shockwave lithotripsy Surgeon: Miracle Iyer Type of Anesthesia: General Description of Procedure: The patient is a 31-year-old female identified as having bilateral renal calculi on the right side burden over 1 cm. She now presents for cystoscopy with right ureteral stent insertion and shockwave lithotripsy. Informed consent was obtained. The patient was taken to the operating room and placed on the operating room table. Anesthesia monitored the head, neck, airway, IV access and vital signs throughout the case. Once anesthesia was appropriate ministered, the patient was placed into dorsal lithotomy position was prepped and draped in usual sterile fashion. At this time the cystoscope was inserted through the urethra under direct visualization into the urinary bladder. The bladder mucosa was directly visualized in its entirety and found to be without evidence of erythema, mass, foreign body or abnormality. The right ureteral orifice was identified and intubated with a 0.035 Glidewire. A 6 x 24 JJ stent was passed over the Glidewire without difficulty with good curling in the renal pelvis as well as the urinary bladder. The patient's bladder was emptied and the cystoscope was removed. The patient was repositioned on the table. 3000 shocks were applied to the renal calculi in the right kidney. They appear to be well fragmented at the conclusion of the case. The patient was then awakened and taken to the recovery room in good condition. There were no complications during this procedure. Grafts/Implants Used: 6 x 24 JJ stent Complications None Admit VTE Documentation VTE Present on Admission: Yes VTE Mechan Device Prophylaxis: SCD's VTE Pharm Prophylaxis ordered?: No Reason prophylaxis not ordered:: Treatment Not Indicated
[2022-03-05] MEDS: Cefazolin 2 GM in 0.9% Normal Saline 100 ML IV (07:39)
[2022-03-05] MEDS: Lubricating Jelly 60 GM Tube 30 GM (07:50)
--- NOTE | 2022-03-05 07:56 | DCINST_ITS ---
Discharge Instructions Diet Discharge Diet: No restrictions Activity Discharge Activity: Return to Normal Activity and [place] Drive (when not taking narcotics) May resume sexual activity in: No Restrictions Dressing / Incision Call your doctor if you observe: Fever of 101 or Higher, Inability to urinate and Inability to have a bowel movement Follow Up Care Please Follow Up With: Miracle Iyer MD When: call office for instructions Test Results: Test results from this visit will be discussed in further detail at your follow- up appointment, if applicable. Discharge Plan Admission Attending Provider: Miracle Iyer Primary Care Provider: Joni Adamson Discharge Orders/Prescriptions Prescriptions: New ondansetron HCl [ondansetron HCl] 8 mg tablet 8 mg PO Q8H PRN PRN (Reason: Nausea) 7 Days Qty: 20 0RF oxycodone-acetaminophen [Percocet] 5-325 mg tablet 1 tab PO Q8H PRN (Reason: pain) 5 Days Qty: 20 0RF cephalexin [cephalexin] 500 mg capsule 500 mg PO Q12 3 Days Qty: 6 0RF phenazopyridine [Pyridium] 200 mg tablet 200 mg PO TID PRN PRN (Reason: Bladder Spasms) 7 Days Qty: 30 0RF Continued buspirone 5 mg tablet 5 mg PO QHS doxycycline hyclate 100 mg capsule 100 mg PO QHS isotretinoin [Accutane] 40 mg capsule 40 mg PO PRN PRN (Reason: ACNE) Rx Instructions: must administer with a meal/food desvenlafaxine succinate [Pristiq] 50 mg tablet extended release 24 hr 50 mg PO QHS spironolactone 50 mg tablet 50 mg PO QHS ibuprofen 600 mg tablet 600 mg PO Q6H PRN (Reason: pain) Qty: 30 0RF levocetirizine 5 MG tablet 1 tab PO DAILY Referrals / Follow Up: Joni Adamson MD [Primary Care Provider] - Disposition Disposition (needs filled in before D/C Order can be placed): Home, Self Care
[2022-03-05] MEDS: oxyCODONE 5 MG Tablet PO (10:22)
[2022-03-05] MEDS: Acetaminophen 325 MG Tablet PO (10:22)
== END 2022-03-05 11:10 | disposition home or self-care (01) ==
LOC: SDC 05:54 → AC 05:55
PROVIDERS: PCP Family Medicine; Referring Provider Urology; Visit Provider Urology
PROC: (CPT 50590; principal; 2022-03-05 07:20)
DX: N20.0 Calculus of kidney (principal); Z87.442 Personal history of urinary calculi; I10 Essential (primary) hypertension; Z79.899 Other long term (current) drug therapy; F41.9 Anxiety disorder, unspecified; F32.A Depression, unspecified; K21.9 Gastro-esophageal reflux disease without esophagitis
CPT/HCPCS: 52332; 00910; 81025; J7120; C2617; J2405

== ENCOUNTER 2022-04-02 13:47 | Day surgery (SDC) | payer OTHER, SELFPAY ==
[2022-04-02] VITALS (7 sets, daily range): BP systolic 128–168; BP diastolic 93–113; PULSE 70–86; RESP 16; TEMP 36.5–36.7; O2SAT 95–99; BMI 35.4
[2022-04-02 14:08] LABS: Internal QC Validated? YES +Cl - CLEAR BKGD; Pregnancy, Urine Negative Negative
[2022-04-02] MEDS: Lactated Ringers 1,000 ML 15 ML IV (14:15)
--- NOTE | 2022-04-02 15:37 | DCINST_ITS ---
Discharge Instructions Diet Discharge Diet: No restrictions Activity Discharge Activity: Return to Normal Activity May resume sexual activity in: No Restrictions Dressing / Incision Call your doctor if you observe: Fever of 101 or Higher, Inability to urinate and Inability to have a bowel movement Follow Up Care Please Follow Up With: Miracle Iyer MD When: Call the office for appointment Test Results: Test results from this visit will be discussed in further detail at your follow- up appointment, if applicable. Discharge Plan Admission Attending Provider: Miracle Iyer Primary Care Provider: Joni Adamson Discharge Orders/Prescriptions Prescriptions: New oxycodone-acetaminophen [oxycodone-acetaminophen] 5-325 mg tablet 2 tab PO Q8H PRN PRN (Reason: Pain) 3 Days Qty: 10 0RF cephalexin [cephalexin] 500 mg capsule 500 mg PO Q12 3 Days Qty: 6 0RF ondansetron HCl [ondansetron HCl] 8 mg tablet 8 mg PO Q8H PRN PRN (Reason: Nausea) 7 Days Qty: 20 0RF Continued buspirone 5 mg tablet 5 mg PO QHS doxycycline hyclate 100 mg capsule 100 mg PO QHS isotretinoin [Accutane] 40 mg capsule 40 mg PO PRN PRN (Reason: ACNE) Rx Instructions: must administer with a meal/food desvenlafaxine succinate [Pristiq] 50 mg tablet extended release 24 hr 50 mg PO QHS spironolactone 50 mg tablet 50 mg PO QHS levocetirizine 5 MG tablet 1 tab PO DAILY lamotrigine 200 mg Tablet 200 mg PO QHS Referrals / Follow Up: Joni Adamson MD [Primary Care Provider] - Disposition Disposition (needs filled in before D/C Order can be placed): Home, Self Care
--- NOTE | 2022-04-02 15:41 | PCM.OPRPT ---
Problems Associated Problem List Diagnoses (1) Bilateral renal stones: Report of Operation Date of Procedure: 04/02/22 Pre-Operative Diagnosis: Bilateral renal stones Post-Operative Diagnosis: Same Surgery/Procedure Performed:: Cystoscopy with right ureteral stent removal, left renal extracorporal shockwave lithotripsy Surgeon: Miracle Iyer Type of Anesthesia: General Description of Procedure: The patient is a 31-year-old female with bilateral renal stones who now presents for treatment on her left side and evaluation with possible right ureteral stent removal. Informed consent has been obtained. The patient was taken the operating room and placed on the operating room table. Anesthesia monitored the head, neck, airway, IV access and vital signs throughout the case. Once anesthesia was appropriate ministered the patient was evaluated with a lithotripter. No stones were seen in the right kidney or along the right ureteral stent. She was then placed into dorsal lithotomy position was prepped and draped in usual sterile fashion. The cystoscope was inserted through the urethra under direct visualization into the urinary bladder. The right ureteral stent was easily observed, grasped with forceps and removed. At this time the patient was repositioned on the table. The left renal calculus was easily seen and 3000 shocks were applied. The stone appeared to be well fragmented at the conclusion of the case. The patient was then awakened and taken to the recovery room in good condition. There were no complications during this procedure. Complications None Admit VTE Documentation VTE Present on Admission: Yes VTE Mechan Device Prophylaxis: SCD's VTE Pharm Prophylaxis ordered?: No Reason prophylaxis not ordered:: Treatment Not Indicated
[2022-04-02] MEDS: Cefazolin 2 GM in 0.9% Normal Saline 100 ML IV (15:43)
== END 2022-04-02 18:05 | disposition home or self-care (01) ==
LOC: SDC 13:50 → AC 13:51
PROVIDERS: Anesthesiology; PCP Family Medicine; Referring Provider Urology; Visit Provider Urology
PROC: (CPT 50590; principal; 2022-04-02 15:35)
DX: N20.0 Calculus of kidney (principal); I10 Essential (primary) hypertension; F41.9 Anxiety disorder, unspecified; F32.A Depression, unspecified; K21.9 Gastro-esophageal reflux disease without esophagitis; Z79.899 Other long term (current) drug therapy
CPT/HCPCS: 52332; 00910; 81025; J7120; J2405

== ENCOUNTER 2022-05-19 10:04 | Emergency (ER) | payer BC, SELFPAY ==
[2022-05-19 10:05] VITALS: BP 163/117; PULSE 101; RESP 14; TEMP 35.2; O2SAT 99; BMI 37.2
--- NOTE | 2022-05-19 10:28 | ED.VIS.GI ---
HPI HPI - GI History of Present Illness Chief Complaint: GI Bleed Abdominal Pain/Flank Pain Onset: Yesterday Context: Gradual Onset Timing: Waxes and wanes Quality: Aching and Cramping Location: Diffuse Worsened by: - (Having bowel movement) Relieved by: - (Curling up in a ball and rocking herself back and forth) Nausea/Vomiting/Emesis GI Symptom: Positive for Nausea Diarrhea/Melena/Hematochezia GI Symptom: Positive for Diarrhea and Hematochezia Onset: Days (5) Stool Quality: Positive for BRB per rectum Associated Symptoms Associated Symptoms: Negative for Dysuria, Frequency or Hematuria Narrative Narrative: Patient presents with rectal bleeding that began last night. Patient states she has had diarrhea for the past 5 days but since last night it has become bloody. Patient states she has had about 10-15 episodes of watery diarrhea per day for the last 5 days. Patient states she went to an urgent care twice in the last week. Patient states she was tested for COVID twice and was negative. Patient states she was also tested for influenza a and B and strep which were all negative. Patient states she was started on prednisone. Patient admits to some nausea but denies any vomiting. Patient also admits to some diffuse abdominal aching and cramping. Patient states it is worse when she has bowel movement. Patient states it is better whenever she curls up in a ball and rocks herself [id number]. [facility] Medical History Anxiety Bilateral renal stones Depression Difficulty swallowing Gastric reflux Hypertension Non-smoker depression Seasonal allergies Wears contact lenses Wears glasses Home Medications levocetirizine 5 mg tablet 1 tab PO DAILY allergies 11/27/18 [History Last Taken 11/01/19 05:45 1 tab] buspirone 5 mg tablet 5 mg PO QHS 12/09/20 [History Last Taken Unknown] doxycycline hyclate 100 mg capsule 100 mg PO QHS 12/09/20 [History Last Taken Unknown] desvenlafaxine succinate 50 mg tablet,extended release 24 hr (Pristiq) 50 mg PO QHS 12/29/21 [History Last Taken Unknown] isotretinoin 40 mg capsule (Accutane) 40 mg PO PRN PRN ACNE 12/29/21 [History Last Taken Unknown] spironolactone 50 mg tablet 50 mg PO QHS 12/29/21 [History Last Taken Unknown] lamotrigine 200 mg tablet 200 mg PO QHS 03/31/22 [History Last Taken Unknown] cephalexin 500 mg capsule 500 mg PO Q12 post-operative 3 days #6 CAPSULES 04/02/22 [Rx Last Taken Unknown] ondansetron HCl 8 mg tablet 8 mg PO Q8H PRN PRN Nausea 7 days #20 TABLETS 04/02/22 [Rx Last Taken Unknown] oxycodone-acetaminophen 5 mg-325 mg tablet 2 tab PO Q8H PRN PRN Pain 3 days #10 tabs 04/02/22 [Rx Last Taken Unknown] ciprofloxacin HCl 500 mg tablet 500 mg PO BID #20 TABLETS 05/19/22 [Rx Last Taken Unknown] metronidazole 500 mg tablet 500 mg PO Q6H #40 tabs 05/19/22 [Rx Last Taken Unknown] Allergy/AdvReac Type Severity Reaction Status Date / Time lisinopril Allergy Other Verified 05/19/22 10:05 bupropion [From Wellbutrin] AdvReac mental fog Verified 05/19/22 10:05 Surgical History History of bilateral salpingectomy (~01/16/20) Hx of cystoscopy S/p bilateral carpal tunnel release S/P removal of ovarian cyst (~02/04/21) S/P right oophorectomy (~02/04/21) S/P tonsillectomy Social History adopted: Yes household members: family housing: house number of children: 2 current occupational status: employed 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 pets and animals: Yes history of recent travel: Yes sexually active: Yes Smoking Status: Never smoker second hand exposure: No alcohol intake: never substance use type: does not use caffeine: Yes what type of physical activity do you participate in: none seatbelt use: always do you feel safe at home: Yes additional social history: -[place] ROS ROS ED Constitutional Constitutional ED: Denies chills or fever(s) Eyes Eyes: Denies blurry vision or change in vision ENT ENT ED: Denies rhinorrhea or sore throat Cardiovascular Cardiovascular: Denies chest pain or palpitations Respiratory/Chest Respiratory/Chest: Denies cough or dyspnea Gastrointestinal Gastrointestinal: Reports abdominal pain, diarrhea, melena and nausea; Denies vomiting Genitourinary Genitourinary ED: Denies dysuria or hematuria Musculoskeletal Musculoskeletal: Denies back pain or neck pain Integumentary Denies abscess or rash Neurologic Neurologic: Denies headache(s) or weakness Allergic/Immunologic Allergic/Immunologic ED: Denies mouth swelling or urticaria EXAM Physical Exam Const Vital Signs: 05/19/22 10:05 05/19/22 13:02 Temperature 95.3 F L Temperature Source Temporal Pulse Rate 101 H 85 Respiratory Rate 14 16 Blood Pressure 163/117 H 135/104 H Blood Pressure Mean 132 114 Pulse Ox 99 100 Oxygen Delivery Method Room Air Room Air Positive well nourished, well developed and obese General Appearance ED: well developed and NAD Nutritional Appearance: obese HEENT Reports moist mucous membranes Neck supple and no JVD Resp normal respiratory effort and clear to auscultation bilaterally Cardio regular rate, regular rhythm and no murmurs GI normal to inspection, nondistended, normoactive bowel sounds and non-tender Palpation: soft and tender epigastric, LLQ, RLQ, LUQ, RUQ, periumbilical and suprapubic; Negative for guarding or rebound tenderness present Extremity normal to inspection General Extremety ED: Negative for edema or tenderness General Extremity: Negative for edema Neuro oriented x3, CN's II-XII intact bilaterally and no sensory deficits noted Sensorium / Orientation: alert Motor Exam: strength 5/5 throughout Psych mental status grossly normal Skin no rashes or lesions noted MDM MDM MDM Narrative Medical decision making narrative: Patient was able to provide a stool specimen which was obviously bloody. Patient was given IV fluids. Patient was given morphine and Zofran. CBC was within normal limits. Comprehensive metabolic profile showed a slightly elevated glucose of 126. Lactate was normal. Lipase was normal. Anion gap was normal. Serum hCG was negative. Urinalysis shows leukocyte esterase of 25 with 5-10 white blood cells. There were no bacteria noted. CT scan of the abdomen pelvis was obtained. There is colitis involving the descending colon as well as the sigmoid colon and rectum. There is no other acute abnormality noted. Patient was advised of her findings. Patient was given prescriptions for Cipro and Flagyl. Patient was instructed to avoid alcohol while taking Flagyl. Patient was instructed to follow-up with her primary care physician in 5 to 7 days. Patient understood and was agreeable with plan. All questions were answered. Lab Data Attestation: I reviewed the patient's lab results. Labs: Laboratory Results - last 24 hr 05/19/22 05/19/22 05/19/22 10:40 10:40 10:40 WBC 9.8 RBC 5.14 Hgb 14.5 Hct 42.8 MCV 83.3 MCH 28.2 MCHC 33.9 RDW Std Deviation 38.6 RDW Coeff of [place] 12.8 Plt Count 251 MPV 9.5 Immature Gran % (Auto) 0.900 Neut % (Auto) 63.2 Lymph % (Auto) 24.1 [place] % (Auto) 8.0 Eos % (Auto) 3.1 Baso % (Auto) 0.7 Absolute Neuts (auto) 6.2 Absolute Lymphs (auto) 2.36 Nucleated RBC % 0 Sodium 140 Potassium 3.7 Chloride 106 Carbon Dioxide 27.0 Anion Gap 7 BUN 18 Creatinine 0.89 Estim Creat Clear Calc 75.76 Est GFR (MDRD) Af Amer 95 Est GFR (MDRD) Non-Af 78 BUN/Creatinine Ratio 20.2 H Glucose 126 H Lactic Acid 1.6 Calcium 8.7 Total Bilirubin 0.20 AST 17 ALT 27 Alkaline Phosphatase 94 Total Protein 6.5 Albumin 2.7 L Globulin 3.8 Albumin/Globulin Ratio 0.7 L Lipase 140 Serum , Qual Urine Color Urine Clarity Urine pH Ur Specific [place] Urine Protein Urine Glucose (UA) Urine Ketones Urine Occult Blood Urine Nitrite Urine Bilirubin Urine Urobilinogen Ur Leukocyte Esterase Urine RBC Urine WBC Ur Squamous Epith Cells Urine Bacteria Urine Mucus 05/19/22 05/19/22 10:40 12:00 WBC RBC Hgb Hct MCV MCH MCHC RDW Std Deviation RDW Coeff of [place] Plt Count MPV Immature Gran % (Auto) Neut % (Auto) Lymph % (Auto) [place] % (Auto) Eos % (Auto) Baso % (Auto) Absolute Neuts (auto) Absolute Lymphs (auto) Nucleated RBC % Sodium Potassium Chloride Carbon Dioxide Anion Gap BUN Creatinine Estim Creat Clear Calc Est GFR (MDRD) Af Amer Est GFR (MDRD) Non-Af BUN/Creatinine Ratio Glucose Lactic Acid Calcium Total Bilirubin AST ALT Alkaline Phosphatase Total Protein Albumin Globulin Albumin/Globulin Ratio Lipase Serum , Qual NEGATIVE Urine Color Yellow Urine Clarity Clear Urine pH 6.5 Ur Specific [place] 1.015 Urine Protein 500 H Urine Glucose (UA) Normal Urine Ketones Negative Urine Occult Blood 50 H Urine Nitrite Negative Urine Bilirubin Negative Urine Urobilinogen Normal Ur Leukocyte Esterase 25 H Urine RBC 0-5 SEEN Urine WBC 5-10 SEEN Ur Squamous Epith Cells 0-5 SEEN Urine Bacteria 0 SEEN Urine Mucus 0 SEEN Radiography Diagnostic Testing: Clinical Impression(s) from Imaging Studies Abdomen/Pelvis CT 05/19/22 10:32 IMPRESSION: Stable bilateral nonobstructive intrarenal calculi suggestive of bilateral medullary sponge kidneys. Stable small bilateral renal cysts. Stable left ovarian cyst. New finding of the colitis involving the descending colon as well as sigmoid colon and rectum. Electronically Signed: Matti Scherer MD at 12:52 EDT , Discharge Plan Triage Chief Complaint: GI Bleed ED Provider: Francesco Jin Dx/Rx/DC Orders Clinical Impression: Colitis, Chronic hypertension, Obesity (BMI 30-39.9) Instructions: ED Understanding Colitis Prescriptions: New metronidazole [metronidazole] 500 mg tablet 500 mg PO Q6H Qty: 40 0RF ciprofloxacin HCl [ciprofloxacin HCl] 500 mg tablet 500 mg PO BID Qty: 20 0RF No Action buspirone 5 mg tablet 5 mg PO QHS doxycycline hyclate 100 mg capsule 100 mg PO QHS isotretinoin [Accutane] 40 mg capsule 40 mg PO PRN PRN (Reason: ACNE) Rx Instructions: must administer with a meal/food desvenlafaxine succinate [Pristiq] 50 mg tablet extended release 24 hr 50 mg PO QHS spironolactone 50 mg tablet 50 mg PO QHS levocetirizine 5 MG tablet 1 tab PO DAILY lamotrigine 200 mg Tablet 200 mg PO QHS oxycodone-acetaminophen [oxycodone-acetaminophen] 5-325 mg tablet 2 tab PO Q8H PRN PRN (Reason: Pain) 3 Days Qty: 10 0RF cephalexin [cephalexin] 500 mg capsule 500 mg PO Q12 3 Days Qty: 6 0RF ondansetron HCl [ondansetron HCl] 8 mg tablet 8 mg PO Q8H PRN PRN (Reason: Nausea) 7 Days Qty: 20 0RF Primary Care Provider: Joni Adamson Referrals: Joni Adamson MD [Primary Care Provider] - 5-7 Days Activity Restrictions/Additional Instructions: Do not drink any alcohol while taking the antibiotics. This will cause severe nausea and vomiting. Disposition Disposition: Home, Self Care Discharge Date/Time: 05/19/22 13:53
--- NOTE | 2022-05-19 10:32 | CT_ITS ---
STUDY: CT ABDOMEN AND PELVIS WITH CONTRAST REASON FOR EXAM: Female, 31 years old. Abdominal pain. 5 day history of diarrhea and blood in the stool. -- IV PO Contrast RADIATION DOSAGE (If Supplied By Facility): CTDIvol = ( 14.69 ) mGy, DLP = ( 1185 ) mGycm TECHNIQUE: Transaxial images were obtained from the dome of the diaphragm to the symphysis pubis with oral contrast. Oral and amp; IV Gastrografin and amp; 100mL Isovue-300 was administered. Sagittal and coronal images were reconstructed. Individualized dose optimization techniques were used for this CT. COMPARISON: Comparison is made with prior study dated 12/13/2021. FINDINGS: Stable 2.5 mm nodule in the right middle lobe laterally as well as in the right lower. These are unchanged. The visualized portions of the heart are within normal limits. Normal liver. Normal gallbladder and extrahepatic biliary system. There is mild splenomegaly. This is unchanged. Normal pancreas. Normal bilateral adrenal glands. 1 cm cyst in the lower pole of the right kidney. Nonobstructive right intrarenal calculi suggestive of a medullary sponge kidney. There is a 2 cm cyst in the anterior upper pole of the left kidney. Nonobstructive left intrarenal calculi. Medullary sponge kidney should be ruled out. Normal visualized stomach. Normal small intestine. There is a mild degree of circumferential wall thickening of the descending colon and sigmoid colon with increased markings in the surrounding peritoneal fat. This is suggestive of colitis. A moderate amount of fecal material is seen in the ascending colon and transverse colon. The appendix is visualized and appears normal. Normal abdominal aorta. Normal inferior vena cava. There is borderline retroperitoneal lymphadenopathy with enlarged nodes no greater than 10mm in the short axis diameter. Normal urinary bladder. There is a 4.6 cm x 2.7 cm septated cyst in the left ovary. This is essentially unchanged as compared to prior study. Normal abdominal wall. Normal osseous structures. CT/Abdomen/Pelvis WITH Contrast IMPRESSION: Stable bilateral nonobstructive intrarenal calculi suggestive of bilateral medullary sponge kidneys. Stable small bilateral renal cysts. Stable left ovarian cyst. New finding of the colitis involving the descending colon as well as sigmoid colon and rectum. Electronically Signed: Matti Scherer MD at 12:52 EDT ,
[2022-05-19] MEDS: Ondansetron 4 MG/2 ML Vial IV (10:45)
[2022-05-19] MEDS: Morphine 4 MG/ML Syringe IV (10:45)
[2022-05-19] MEDS: 0.9% Normal Saline 1,000 ML 1000 ML IV (10:46)
[2022-05-19 10:52] LABS: Absolute Lymphocyte Count 2.36 X10^3/uL (0.83-4.51); Absolute Neutrophil Count 6.2 X10^3/uL (2.0-7.7); Basophil# 0.07 X10^3/uL; Basophil% 0.7 % (0-1); Eosinophils% 3.1 % (0-5); Hematocrit 42.8 % (37-47); Hemoglobin 14.5 g/dL (12.0-15.0); Lymphocyte # 2.36 X10^3/ul (0.83-4.51); Lymphocyte % 24.1 % (19-41); Mean Corp Hgb Conc 33.9 g/dL (32-36); Mean Corpuscular Hgb 28.2 pg (27.0-32.0); Mean Corpuscular Volume 83.3 fL (81-99); Mean Platelet Vol. 9.5 fl (6.2-12.0); Monocyte# 0.78 X10^3/uL; NRBC Flagged by Analyzer 0 % (0-5); Neutrophil # 6.21 X10^3/uL (2.7-7.7); Neutrophil % 63.2 % (47-70); Platelet Count 251 K/mm3 (150-450); RBC Distribution Width CV 12.8 % (11.6-14.6); RBC Distribution Width SD 38.6 fl (35.1-43.9); Red Blood Count 5.14 M/mm3 (4.2-5.4); White Blood Count 9.8 K/mm3 (4.4-11.0)
[2022-05-19 10:59] LABS: Internal QC Validated? YES +Cl - CLEAR BKGD; Pregnancy, Serum, hCG Quali. NEGATIVE Negative
[2022-05-19 11:07] LABS: ALB/GLOB Ratio 0.7 RATIO (0.9-2.4); AST(SGOT) 17 U/L (15-37); Alanine Aminotransfer ALT/SGPT 27 U/L (13-56); Albumin, Serum 2.7 g/dL (3.2-5.0); Alkaline Phosphatase 94 U/L (45-117); Anion Gap 7 (5-15); BUN 18 mg/dL (7-18); BUN/Creat Ratio 20.2 RATIO (10-20); Calcium,Total 8.7 mg/dL (8.5-10.1); Chloride 106 mmol/L (98-107); Creatinine, Serum 0.89 mg/dL (0.55-1.02); EST Glomerular Filtration Rate 78 mL/min (>60); Est Glom Filt Rate - Afr Amer 95 mL/min (>60); Estimated Creatinine Clearance 75.76 ml/min; Globulin 3.8 g/dL (2.2-4.2); Glucose 126 mg/dL (74-106); Lipase 140 U/L (73-393); Potassium 3.7 mmol/L (3.5-5.1); Protein, Total 6.5 g/dL (6.4-8.2); Sodium Level 140 mmol/L (136-145)
[2022-05-19 11:19] LABS: Lactic Acid 1.6 mmol/L (0.4-1.9)
[2022-05-19 12:19] LABS: Bacteria 0 SEEN /hpf (None Seen); Mucous, Urine 0 SEEN /hpf (<or=2+)
[2022-05-19 12:27] LABS: Color, Urine Yellow (Yellow); Glucose, Dipstick Normal (Normal); Ketone-Dipstick Negative (Negative); Leukocyte Esterase-Dipstick 25 /ul (Negative); Nitrite-Dipstick Negative (Negative); Occult Blood-Urine 50 /ul (Negative); Protein-Dipstick 500 mg/dl (Negative); Specific Gravity, Urine 1.015 (1.002-1.030); Urine Bilirubin Dipstick Negative (Negative); Urine Clarity Clear (Clear); Urine Urobilinogen Normal (Normal); Urine pH 6.5 (5.0 - 8.0)
[2022-05-19 12:34] LABS: Red Blood Cells-Urine 0-5 SEEN /hpf (0-5); White Blood Cells 5-10 SEEN /hpf (0-5)
[2022-05-19 12:35] LABS: Squamous Epithelial Cells - UA 0-5 SEEN /hpf (5-10)
[2022-05-19 13:02] VITALS: BP 135/104; PULSE 85; RESP 16; O2SAT 100
--- NOTE | 2022-05-19 14:20 | ED.RN ---
LAB CALLED PT POSITIVE FOR CAMYLOBACTER. PER PT SENT WITH APPROPRIATE ANTIBIOTICS
== END 2022-05-19 13:53 | disposition home or self-care (01) ==
PROVIDERS: Emergency Provider Emergency Medicine; PCP Family Medicine; Visit Provider Emergency Medicine
DX: K52.9 Noninfective gastroenteritis and colitis, unspecified (principal); R73.9 Hyperglycemia, unspecified; E66.9 Obesity, unspecified; I10 Essential (primary) hypertension
CPT/HCPCS: 74177; 80053; 81001; 83605; 83690; 84703; 85025; 87493; 87506; 96361; 96374; 96375; 99283; J7030; Q9967; A4216; J2405

== ENCOUNTER 2022-07-18 19:06 | Emergency (ER) | payer BC, SELFPAY ==
[2022-07-18 19:07] VITALS: BP 211/102; PULSE 78; RESP 16; TEMP 36.4; O2SAT 99; BMI 36.6
--- NOTE | 2022-07-18 19:37 | CT_ITS ---
STUDY: CT Abdomen And Pelvis W/O Contrast Injection 07/18/2022 9:30 PM REASON FOR EXAM: Female, 31 years old. ABDOMINAL PAIN right flank pain TECHNIQUE: Transaxial images were obtained without oral contrast, and without intravenous contrast. Individualized dose optimization techniques were used for this CT. COMPARISON: 05.19.22. FINDINGS: The visualized lung bases are unremarkable. The visualized portions of the heart are within normal limits. Unremarkable liver. Unremarkable gallbladder and extrahepatic biliary system. There is mild splenomegaly. Unremarkable pancreas. Unremarkable bilateral adrenal glands. There are medullary hyperdensities. These may represent non obstructive stones vs mild medullary sponge kidney. No acute findings of the left kidney. Moderate hydronephrosis and hydroureter caused by right 7 mm distal ureteral stone. Unremarkable visualized stomach. Unremarkable small intestine. Unremarkable colon. The appendix is visualized and appears unremarkable. There are no acute findings of the abdominal aorta. Unremarkable inferior vena cava. Subcentimeter mesenteric lymph nodes. Unremarkable urinary bladder. control sponge/ device noted in the vaginal canal. There is an umbilical hernia containing fat. Unremarkable osseous structures. CT/Abdomen/Pelvis without Cont IMPRESSION: (NOT LISTED IN ORDER OF SIGNIFICANCE) Moderate hydronephrosis and hydroureter caused by right 7 mm distal ureteral stone. There is mild splenomegaly. There are medullary hyperdensities. These may represent non obstructive stones vs mild medullary sponge kidney. Other findings as above. Electronically Signed: Marshall Ferris MD at 21:37 EST ,
--- NOTE | 2022-07-18 19:38 | EX.ED.DYSGE1 ---
HPI History of Present Illness Chief Complaint: Flank Pain Detail of Chief Complaint: Right flank pain that started this morning Informant: patient Onset/Context/Timing Current Severity: 03/18 Narrative Narrative: Patient presents with right flank pain that started this morning. She tells me the pain reminds her of a kidney stone. She states the pain wraps from her back around the front of the abdomen towards her vagina. Patient complains of urinary frequency. She denies hematuria. She rates her pain an 8 out of 10. On the way to the hospital she had to car clerk pullman and vomit x1. Patient last had kidney stone that needed to be blasted about 6 months ago. She denies fevers. Patient is just started her menstrual period yesterday. Prior similar symptoms: Yes PFSH PFSH Medical History Anxiety Bilateral renal stones Depression Difficulty swallowing Gastric reflux Hypertension Non-smoker depression Seasonal allergies Wears contact lenses Wears glasses Home Medications levocetirizine 5 mg tablet 1 tab PO DAILY allergies 11/27/18 [History Last Taken 11/01/19 05:45 1 tab] buspirone 5 mg tablet 5 mg PO BID 12/09/20 [History Last Taken Unknown] desvenlafaxine succinate 50 mg tablet,extended release 24 hr (Pristiq) 50 mg PO QHS 12/29/21 [History Last Taken Unknown] isotretinoin 40 mg capsule (Accutane) 40 mg PO PRN PRN ACNE 12/29/21 [History Last Taken Unknown] spironolactone 50 mg tablet 50 mg PO QHS 12/29/21 [History Last Taken Unknown] lamotrigine 200 mg tablet 200 mg PO QHS 03/31/22 [History Last Taken Unknown] ciprofloxacin HCl 500 mg tablet 500 mg PO BID #20 TABLETS 05/19/22 [Rx Last Taken Unknown] naproxen 500 mg tablet 500 mg PO BID #14 tabs 07/18/22 [Rx Last Taken Unknown] ondansetron 4 mg disintegrating tablet 4 mg PO Q8H PRN PRN Nausea #10 tabs 07/18/22 [Rx Last Taken Unknown] oxycodone-acetaminophen 5 mg-325 mg tablet 1 tab PO Q6H PRN PRN Pain 3 days #12 TABLETS 07/18/22 [Rx Last Taken Unknown] sulfamethoxazole 800 mg-trimethoprim 160 mg tablet 1 tab PO BID #14 TABLETS 07/18/22 [Rx Last Taken Unknown] Allergy/AdvReac Type Severity Reaction Status Date / Time lisinopril Allergy Other Verified 07/18/22 19:08 bupropion [From Wellbutrin] AdvReac mental fog Verified 07/18/22 19:08 Surgical History History of bilateral salpingectomy (~01/16/20) Hx of cystoscopy S/p bilateral carpal tunnel release S/P removal of ovarian cyst (~02/04/21) S/P right oophorectomy (~02/04/21) S/P tonsillectomy Social History adopted: Yes household members: family housing: house number of children: 2 current occupational status: employed 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 pets and animals: Yes history of recent travel: Yes sexually active: Yes Smoking Status: Never smoker second hand exposure: No alcohol intake: never substance use type: does not use caffeine: Yes what type of physical activity do you participate in: none seatbelt use: always do you feel safe at home: Yes additional social history: -[place] ROS ROS ED Review of Systems ROS Unobtainable: other Constitutional Constitutional ED: Reports lethargy; Denies chills, fever(s), sweats or weight loss Eyes Eyes: Denies blurry vision, change in vision or diplopia ENT ENT ED: Denies rhinorrhea or sore throat Cardiovascular Cardiovascular: Denies chest pain, orthopnea or racing heartbeat Respiratory/Chest Respiratory/Chest: Denies cough, dyspnea, dyspnea on exertion, orthopnea or sputum Gastrointestinal Gastrointestinal: Reports abdominal pain, nausea and vomiting; Denies diarrhea Genitourinary Genitourinary ED: Reports urinary frequency; Denies dysuria or hematuria Musculoskeletal Musculoskeletal: Reports back pain; Denies arthralgias, myalgias or neck pain Integumentary Denies abscess, Abrasions or rash Neurologic Neurologic: Denies headache(s) or weakness Psychiatric Psychiatric: Denies anxiety, depression or suicidal thoughts Endocrine Endocrinology: Denies polydipsia, polyphagia or polyuria Hematologic/Lymphatic Hematologic/Lymphatic: Denies easy bleeding, easy bruising or lymphadenopathy Allergic/Immunologic Allergic/Immunologic ED: Denies mouth swelling, tongue swelling or urticaria EXAM Physical Exam Const Vital Signs: 07/18/22 19:07 07/18/22 21:15 Temperature 97.6 F L Temperature Source Temporal Pulse Rate 78 73 Respiratory Rate 16 18 Blood Pressure 211/102 H Blood Pressure Mean 138 Pulse Ox 99 98 Oxygen Delivery Method Room Air Room Air Positive well nourished and well developed General Appearance ED: well developed and NAD HEENT Reports TM's clear and moist mucous membranes normocephalic and atraumatic; Negative for trauma or tenderness Tympanic Membrane ED: Yes TM's clear Eyes PERRL and EOMs intact bilaterally General Eye ED: Negative for pale conjunctiva or scleral icterus Neck no lymphadenopathy, supple and no JVD General: Negative for tenderness Chest Wall inspection of chest normal and palpation of chest normal Chest: Negative for tenderness Resp normal respiratory effort and clear to auscultation bilaterally Effort and Inspection: Negative for respiratory distress or pain with movement Auscultation: Negative for rhonchi, wheezes or diminished lung sounds Cardio regular rate, regular rhythm, S1 normal heart sound, S2 normal heart sound and no murmurs Peripheral Pulses: pulses 2+ throughout GI normal to inspection, nondistended, normoactive bowel sounds, soft to palpation, non-distended and no masses GI Narrative: Tenderness to palpation to the right lower quadrant with some guarding. There is no rebound, rigidity, or peritoneal signs. Back/Spine no thoracic nor lumbar tenderness Back/Spine Narrative: CVA tenderness on the right Extremity normal to inspection General Extremety ED: Negative for edema General Extremity: Negative for edema Neuro oriented x3, CN's II-XII intact bilaterally, no sensory deficits noted and gait normal Sensorium / Orientation: awake, alert, oriented to person, oriented to place and oriented to time Motor Exam: strength 5/5 throughout and strength abnormal Psych mental status grossly normal Skin no rashes or lesions noted and no wounds MDM MDM MDM Narrative Medical decision making narrative: IV line established on arrival. Patient was medicated with Toradol, Zofran, and Dilaudid and she had good pain relief with that. Patient's labs look normal with a white count of 10.7. Chemistries unremarkable. BUN was 18 and creatinine 1.08. Urinalysis was positive for nitrites as well as 500 excite esterase and more than [address] flank obtained showed a moderate hydronephrosis and hydroureter caused by right 7 mm distal ureteral stone. Case was discussed with Dr. Iyer who is patient's urologist. It was felt patient could be discharged to home and outpatient follow-up with her. Patient will be given a prescription for Percocet as well as Zofran and urine strainers. Patient advised to return if worsening pain, fever, vomiting, or condition should worsen anyway. Lab Data Attestation: I reviewed the patient's lab results. Labs: Laboratory Results - last 24 hr 07/18/22 07/18/22 07/18/22 19:15 19:50 19:50 WBC 10.7 RBC 5.56 H Hgb 16.0 H Hct 46.5 MCV 83.6 MCH 28.8 MCHC 34.4 RDW Std Deviation 37.2 RDW Coeff of [place] 12.2 Plt Count 277 MPV 9.7 Immature Gran % (Auto) 0.800 Neut % (Auto) 73.8 H Lymph % (Auto) 17.7 L [place] % (Auto) 6.2 Eos % (Auto) 0.8 Baso % (Auto) 0.7 Absolute Neuts (auto) 7.9 H Absolute Lymphs (auto) 1.89 Nucleated RBC % 0 Sodium 141 Potassium 3.9 Chloride 108 H Carbon Dioxide 29.0 Anion Gap 4 L BUN 18 Creatinine 1.08 H Estim Creat Clear Calc 62.43 Est GFR (MDRD) Af Amer 76 Est GFR (MDRD) Non-Af 63 BUN/Creatinine Ratio 16.7 Glucose 130 H Calcium 9.0 Serum , Qual Urine Color Yellow Urine Clarity Sl. Cloudy Urine pH 6.0 Ur Specific [place] 1.020 Urine Protein 500 H Urine Glucose (UA) Normal Urine Ketones 5 H Urine Occult Blood 250 H Urine Nitrite Positive H Urine Bilirubin Negative Urine Urobilinogen Normal Ur Leukocyte Esterase 500 H Urine RBC 25-50 SEEN Urine WBC >100 SEEN Ur Squamous Epith Cells 0 SEEN Urine Bacteria 2+ Urine Mucus 0 SEEN 07/18/22 19:50 WBC RBC Hgb Hct MCV MCH MCHC RDW Std Deviation RDW Coeff of [place] Plt Count MPV Immature Gran % (Auto) Neut % (Auto) Lymph % (Auto) [place] % (Auto) Eos % (Auto) Baso % (Auto) Absolute Neuts (auto) Absolute Lymphs (auto) Nucleated RBC % Sodium Potassium Chloride Carbon Dioxide Anion Gap BUN Creatinine Estim Creat Clear Calc Est GFR (MDRD) Af Amer Est GFR (MDRD) Non-Af BUN/Creatinine Ratio Glucose Calcium Serum , Qual NEGATIVE Urine Color Urine Clarity Urine pH Ur Specific [place] Urine Protein Urine Glucose (UA) Urine Ketones Urine Occult Blood Urine Nitrite Urine Bilirubin Urine Urobilinogen Ur Leukocyte Esterase Urine RBC Urine WBC Ur Squamous Epith Cells Urine Bacteria Urine Mucus Radiography Diagnostic Testing: Clinical Impression(s) from Imaging Studies Abdomen/Pelvis CT 07/18/22 19:37 IMPRESSION: (NOT LISTED IN ORDER OF SIGNIFICANCE) Moderate hydronephrosis and hydroureter caused by right 7 mm distal ureteral stone. There is mild splenomegaly. There are medullary hyperdensities. These may represent non obstructive stones vs mild medullary sponge kidney. Other findings as above. Electronically Signed: Marshall Ferris MD at 21:37 EST Reading Location ID and State: [facility] / [place] , Service support , Discharge Plan Triage Chief Complaint: Flank Pain ED Provider: Emma Zhu Dx/Rx/DC Orders Clinical Impression: Urolithiasis, UTI (urinary tract infection) Instructions: ED Cystitis Female Adult, ED Kidney Stone w/ Colic Prescriptions: New ondansetron [ondansetron] 4 mg tablet,disintegrating 4 mg PO Q8H PRN PRN (Reason: Nausea) Qty: 10 0RF oxycodone-acetaminophen [oxycodone-acetaminophen] 5-325 mg tablet 1 tab PO Q6H PRN PRN (Reason: Pain) 3 Days Qty: 12 0RF sulfamethoxazole-trimethoprim [sulfamethoxazole-trimethoprim] 800-160 mg tablet 1 tab PO BID Qty: 14 0RF naproxen 500 mg tablet 500 mg PO BID Qty: 14 0RF No Action buspirone 5 mg tablet 5 mg PO BID isotretinoin [Accutane] 40 mg capsule 40 mg PO PRN PRN (Reason: ACNE) Rx Instructions: must administer with a meal/food desvenlafaxine succinate [Pristiq] 50 mg tablet extended release 24 hr 50 mg PO QHS spironolactone 50 mg tablet 50 mg PO QHS levocetirizine 5 MG tablet 1 tab PO DAILY lamotrigine 200 mg Tablet 200 mg PO QHS ciprofloxacin HCl [ciprofloxacin HCl] 500 mg tablet 500 mg PO BID Qty: 20 0RF Primary Care Provider: Joni Adamson Referrals: Joni Adamson MD [Primary Care Provider] - Miracle Iyer MD [Med Staff - Active Staff] - 3-5 Days Disposition Disposition: Home, Self Care
[2022-07-18 19:44] LABS: Mucous, Urine 0 SEEN /hpf (<or=2+); Squamous Epithelial Cells - UA 0 SEEN /hpf (5-10)
[2022-07-18] MEDS: HYDROmorphone 1 MG/ML Syringe IV (19:44)
[2022-07-18] MEDS: Ondansetron 4 MG/2 ML Vial IV (19:44)
[2022-07-18] MEDS: 0.9% Normal Saline 1,000 ML 1000 ML IV (19:44)
[2022-07-18] MEDS: Ketorolac 30 MG/ML Syringe IV (19:45)
[2022-07-18 20:07] LABS: Absolute Lymphocyte Count 1.89 X10^3/uL (0.83-4.51); Absolute Neutrophil Count 7.9 X10^3/uL (2.0-7.7); Basophil# 0.07 X10^3/uL; Basophil% 0.7 % (0-1); Eosinophil# 0.09 X10^3/uL; Eosinophils% 0.8 % (0-5); Hematocrit 46.5 % (37-47); Lymphocyte # 1.89 X10^3/ul (0.83-4.51); Lymphocyte % 17.7 % (19-41); Mean Corp Hgb Conc 34.4 g/dL (32-36); Mean Corpuscular Hgb 28.8 pg (27.0-32.0); Mean Corpuscular Volume 83.6 fL (81-99); Mean Platelet Vol. 9.7 fl (6.2-12.0); Monocyte# 0.66 X10^3/uL; Monocyte% 6.2 % (0-10); NRBC Flagged by Analyzer 0 % (0-5); Neutrophil # 7.87 X10^3/uL (2.7-7.7); Neutrophil % 73.8 % (47-70); Platelet Count 277 K/mm3 (150-450); RBC Distribution Width CV 12.2 % (11.6-14.6); RBC Distribution Width SD 37.2 fl (35.1-43.9); Red Blood Count 5.56 M/mm3 (4.2-5.4); White Blood Count 10.7 K/mm3 (4.4-11.0)
[2022-07-18 20:10] LABS: Color, Urine Yellow (Yellow); Glucose, Dipstick Normal (Normal); Ketone-Dipstick 5 mg/dl (Negative); Leukocyte Esterase-Dipstick 500 /ul (Negative); Nitrite-Dipstick Positive (Negative); Occult Blood-Urine 250 /ul (Negative); Protein-Dipstick 500 mg/dl (Negative); Urine Bilirubin Dipstick Negative (Negative); Urine Clarity Sl. Cloudy (Clear); Urine Urobilinogen Normal (Normal)
[2022-07-18 20:40] LABS: Bacteria 2+ /hpf (None Seen); Red Blood Cells-Urine 25-50 SEEN /hpf (0-5); White Blood Cells >100 SEEN /hpf (0-5)
[2022-07-18 20:48] LABS: Internal QC Validated? YES +Cl - CLEAR BKGD; Pregnancy, Serum, hCG Quali. NEGATIVE Negative
[2022-07-18 20:52] LABS: Anion Gap 4 (5-15); BUN 18 mg/dL (7-18); BUN/Creat Ratio 16.7 RATIO (10-20); Chloride 108 mmol/L (98-107); Creatinine, Serum 1.08 mg/dL (0.55-1.02); EST Glomerular Filtration Rate 63 mL/min (>60); Est Glom Filt Rate - Afr Amer 76 mL/min (>60); Estimated Creatinine Clearance 62.43 ml/min; Glucose 130 mg/dL (74-106); Potassium 3.9 mmol/L (3.5-5.1); Sodium Level 141 mmol/L (136-145)
[2022-07-18 21:15] VITALS: PULSE 73; RESP 18; O2SAT 98
[2022-07-18] MEDS: 0.9% Normal Saline 1,000 ML 150 ML IV (21:30)
[2022-07-18] MEDS: Ceftriaxone 1 GM/50 ML BAG IV (21:43)
== END 2022-07-18 22:50 | disposition home or self-care (01) ==
PROVIDERS: Emergency Provider Emergency Medicine; PCP Family Medicine; Visit Provider Emergency Medicine
DX: N13.1 Hydronephrosis with ureteral stricture, not elsewhere classified (principal); N39.0 Urinary tract infection, site not specified; I10 Essential (primary) hypertension; R35.0 Frequency of micturition
CPT/HCPCS: 74176; 80048; 81001; 84703; 85025; 96365; 96375; 99283; J7030; A4216; J2405

== ENCOUNTER 2023-04-05 18:33 | Emergency (ER) | payer BC, SELFPAY ==
[2023-04-05 18:34] VITALS: BP 211/128; PULSE 92; RESP 16; TEMP 36.7; O2SAT 98; BMI 39.4
--- NOTE | 2023-04-05 18:50 | CT_ITS ---
STUDY: CT ABDOMEN AND PELVIS WITHOUT CONTRAST REASON FOR EXAM: Female, 32 years old. Kidney Stone right RADIATION DOSAGE (If Supplied By Facility): CTDIvol = ( 21.57 ) mGy, DLP = ( 1147.91 ) mGycm TECHNIQUE: Transaxial images were obtained from the dome of the diaphragm to the symphysis pubis without oral contrast, and without intravenous contrast. Sagittal and coronal images were reconstructed. Individualized dose optimization techniques were used for this CT. COMPARISON: July 18, 2022 CT scan abdomen and pelvis FINDINGS: The visualized lung bases are unremarkable. The visualized portions of the heart are within normal limits. Normal liver. Normal gallbladder and extrahepatic biliary system. The spleen measures 14 cm in AP diameter. Normal pancreas. Normal bilateral adrenal glands. There is moderate right hydronephrosis. There is a sizable stone within the right proximal ureter just at the ureteropelvic junction measuring 9.4 x 6.5 mm. There is edema of the right kidney and stranding. No other stones are visualized along the course the right ureter. There are multiple punctate stones within the right kidney. There are multiple punctate stones within the left kidney. There is a cyst in the upper pole the left kidney measuring 1.8 x 2.4 cm with benign features stable when compared to the prior study. Normal visualized stomach. Normal small intestine. There is mild to moderate stool within the colon. The appendix is visualized and appears normal. There are few nonspecific subcentimeter right lower quadrant lymph nodes. Normal abdominal aorta. Normal inferior vena cava. Normal retroperitoneum. Normal urinary bladder. Uterus appears mildly enlarged mildly lobulated stable since prior study suggesting possible underlying small fibroids. There is a stable fatty umbilical hernia measuring 2.8 x 0.9 cm. There are diffuse degenerative changes of the visualized lumbar spine. CT/Abdomen/Pelvis without Cont IMPRESSION: Since July 18, 2022 Recurrent moderate right hydronephrosis, secondary to an interval stone in the right proximal ureter measuring 9.4 x 6.5 mm. Bilateral renal stones. No hydronephrosis left kidney. Mild to moderate splenomegaly. Mild to moderate constipation. Electronically Signed: Muna Mcgarry MD at 20:07 EDT ,
--- NOTE | 2023-04-05 18:51 | ED.VIS.GI ---
HPI HPI - GI History of Present Illness Chief Complaint: Flank Pain Informant: patient Narrative Narrative: Patient has been having pain in the right flank that started about 4 days ago feels like prior kidney stone pain, she has had multiple kidney stones in the past and required lithotripsy for at least one of them, no other surgeries for these and follows with Dr. Auguste. She states initially she got through that severe painful episode 4 days ago and then the pain was colicky and mild, but today much more severe again and associated with nausea/vomiting. No hematuria or other urinary symptoms, fevers, or chills. PFSH PFS Medical History Anxiety Bilateral renal stones Depression Difficulty swallowing Gastric reflux Hypertension Non-smoker depression Seasonal allergies Wears contact lenses Wears glasses Home Medications levocetirizine 5 mg tablet 1 tab PO DAILY allergies 11/27/18 [History Last Taken 11/01/19 05:45 1 tab] buspirone 5 mg tablet 5 mg PO BID 12/09/20 [History Last Taken Unknown] desvenlafaxine succinate 50 mg tablet,extended release 24 hr (Pristiq) 50 mg PO QHS 12/29/21 [History Last Taken Unknown] isotretinoin 40 mg capsule (Accutane) 40 mg PO PRN PRN ACNE 12/29/21 [History Last Taken Unknown] spironolactone 50 mg tablet 50 mg PO QHS 12/29/21 [History Last Taken Unknown] lamotrigine 200 mg tablet 200 mg PO QHS 03/31/22 [History Last Taken Unknown] ciprofloxacin HCl 500 mg tablet 500 mg PO BID #20 TABLETS 05/19/22 [Rx Last Taken Unknown] naproxen 500 mg tablet 500 mg PO BID #14 tabs 07/18/22 [Rx Last Taken Unknown] ondansetron 4 mg disintegrating tablet 4 mg PO Q8H PRN PRN Nausea #10 tabs 07/18/22 [Rx Last Taken Unknown] oxycodone-acetaminophen 5 mg-325 mg tablet 1 tab PO Q6H PRN PRN Pain 3 days #12 TABLETS 07/18/22 [Rx Last Taken Unknown] sulfamethoxazole 800 mg-trimethoprim 160 mg tablet 1 tab PO BID #14 TABLETS 07/18/22 [Rx Last Taken Unknown] ondansetron 4 mg disintegrating tablet 8 mg (2 x 4 mg) PO Q8H PRN PRN Nausea #20 tabs 04/05/23 [Rx Last Taken Unknown] oxycodone-acetaminophen 5 mg-325 mg tablet (Percocet) 1 tab PO Q6H PRN pain 3 days #12 tabs 04/05/23 [Rx Last Taken Unknown] sulfamethoxazole 800 mg-trimethoprim 160 mg tablet 1 tab PO BID #14 TABLETS 04/05/23 [Rx Last Taken Unknown] Allergy/AdvReac Type Severity Reaction Status Date / Time lisinopril Allergy Other Verified 04/05/23 18:34 bupropion [From Wellbutrin] AdvReac mental fog Verified 04/05/23 18:34 Surgical History History of bilateral salpingectomy (~01/16/20) Hx of cystoscopy S/p bilateral carpal tunnel release S/P removal of ovarian cyst (~02/04/21) S/P right oophorectomy (~02/04/21) S/P tonsillectomy Social History adopted: Yes household members: family housing: house number of children: 2 current occupational status: employed 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 pets and animals: Yes history of recent travel: Yes sexually active: Yes Smoking Status: Never smoker second hand exposure: No alcohol intake: never substance use type: does not use caffeine: Yes what type of physical activity do you participate in: none seatbelt use: always do you feel safe at home: Yes additional social history: -[place] ROS ROS ED Constitutional Constitutional ED: Denies chills or fever(s) Eyes Eyes: Denies change in vision or diplopia ENT ENT ED: Denies rhinorrhea or sore throat Cardiovascular Cardiovascular: Denies chest pain or palpitations Respiratory/Chest Respiratory/Chest: Denies cough or dyspnea Gastrointestinal Gastrointestinal: Reports abdominal pain, nausea and vomiting; Denies diarrhea Genitourinary Genitourinary ED: Denies dysuria or hematuria Musculoskeletal Musculoskeletal: Reports back pain; Denies neck pain Integumentary Denies abscess or rash Neurologic Neurologic: Denies headache(s), paresthesias or weakness Psychiatric Psychiatric: Denies depression or suicidal thoughts EXAM Physical Exam Const Vital Signs: 04/05/23 18:34 Temperature 98.1 F Temperature Source Temporal Pulse Rate 92 Respiratory Rate 16 Blood Pressure 211/128 H Blood Pressure Mean 155 Pulse Ox 98 Oxygen Delivery Method Room Air Positive well nourished, well developed and obese General Appearance ED: well developed and NAD Nutritional Appearance: obese HEENT Reports moist mucous membranes normocephalic and atraumatic Eyes PERRL and EOMs intact bilaterally Neck full ROM and supple Resp normal respiratory effort and clear to auscultation bilaterally Cardio regular rate, regular rhythm and no murmurs GI non-distended GI Narrative: Moderately tender right mid and lower abdomen Auscultation: normoactive bowel sounds Palpation: soft Back/Spine General Back: CVA tenderness right and other FROM Extremity normal to inspection General Extremety ED: Negative for edema, pulses abnormal or tenderness General Extremity: Negative for edema or pulses abnormal Neuro oriented x3, CN's II-XII intact bilaterally and no sensory deficits noted Sensorium / Orientation: awake and alert Motor Exam: strength 5/5 throughout Psych thought process normal Mood & Affect: anxious and tearful Skin no rashes or lesions noted and no wounds MDM MDM MDM Narrative Medical decision making narrative: Shows mild leukocytosis, negative , urine suspicious for infection, and a CT showing a large stone in the proximal right ureter giving her right hydronephrosis. I reviewed the CT images and report I agree with it. Her urine was sent for culture, she was given IV Rocephin empirically, and she is doing very well with very little discomfort after 1 dose of pain and nausea medications. She is not septic and doing well clinically and hemodynamically with her repeat blood pressure being. Given this, I recommended she follow-up as soon as possible with Dr. Iyer, as this patient will likely need lithotripsy. If she has uncontrollable symptoms I would recommend she return to the ER immediately, she is comfortable with that overall plan, and I will prescribe her medications for pain, nausea, and antibiotic. Lab Data Attestation: I reviewed the patient's lab results. Labs: Laboratory Results - last 24 hr 04/05/23 04/05/23 18:51 19:15 WBC 13.8 H RBC 6.03 H Hgb 16.0 H Hct 49.5 H MCV 82.1 MCH 26.5 L MCHC 32.3 RDW Std Deviation 39.0 RDW Coeff of [place] 13.2 Plt Count 293 MPV 9.8 Immature Gran % (Auto) 0.900 Neut % (Auto) 66.1 Lymph % (Auto) 23.1 [place] % (Auto) 5.7 Eos % (Auto) 3.4 Baso % (Auto) 0.8 Absolute Neuts (auto) 9.1 H Absolute Lymphs (auto) 3.19 Nucleated RBC % 0 Sodium 137 Potassium 3.9 Chloride 107 Carbon Dioxide 22.0 Anion Gap 8 BUN 13 Creatinine 1.00 Estim Creat Clear Calc 66.81 Est GFR (MDRD) Af Amer 83 Est GFR (MDRD) Non-Af 68 BUN/Creatinine Ratio 13.0 Glucose 110 H Calcium 9.6 Serum , Qual NEGATIVE Urine Color Yellow Urine Clarity Sl. Cloudy Urine pH 6.0 Ur Specific [place] 1.015 Urine Protein 500 H Urine Glucose (UA) Normal Urine Ketones 5 H Urine Occult Blood 25 H Urine Nitrite Negative Urine Bilirubin Negative Urine Urobilinogen Normal Ur Leukocyte Esterase 500 H Urine RBC 0-5 SEEN Urine WBC 25-50 SEEN Ur Squamous Epith Cells 10-25 SEEN Amorphous Sediment 1+ URATE Urine Bacteria 1+ Urine Mucus 0 SEEN Radiography Diagnostic Testing: Clinical Impression(s) from Imaging Studies Abdomen/Pelvis CT 04/05/23 18:50 IMPRESSION: Since July 18, 2022 Recurrent moderate right hydronephrosis, secondary to an interval stone in the right proximal ureter measuring 9.4 x 6.5 mm. Bilateral renal stones. No hydronephrosis left kidney. Mild to moderate splenomegaly. Mild to moderate constipation. Electronically Signed: Muna Mcgarry MD at 20:07 EDT , Discharge Plan Triage Chief Complaint: Flank Pain ED Provider: Sergio Hayes Dx/Rx/DC Orders Clinical Impression: Renal colic on right side, Ureterolithiasis, UTI (urinary tract infection) Instructions: ED Kidney Stone w/ Colic Prescriptions: New sulfamethoxazole-trimethoprim [sulfamethoxazole-trimethoprim] 800-160 mg tablet 1 tab PO BID Qty: 14 0RF oxycodone-acetaminophen [Percocet] 5-325 mg tablet 1 tab PO Q6H PRN (Reason: pain) 3 Days Qty: 12 0RF ondansetron [ondansetron] 4 mg tablet,disintegrating 8 mg PO Q8H PRN PRN (Reason: Nausea) Qty: 20 0RF No Action buspirone 5 mg tablet 5 mg PO BID isotretinoin [Accutane] 40 mg capsule 40 mg PO PRN PRN (Reason: ACNE) Rx Instructions: must administer with a meal/food desvenlafaxine succinate [Pristiq] 50 mg tablet extended release 24 hr 50 mg PO QHS spironolactone 50 mg tablet 50 mg PO QHS levocetirizine 5 MG tablet 1 tab PO DAILY lamotrigine 200 mg Tablet 200 mg PO QHS ciprofloxacin HCl [ciprofloxacin HCl] 500 mg tablet 500 mg PO BID Qty: 20 0RF ondansetron [ondansetron] 4 mg tablet,disintegrating 4 mg PO Q8H PRN PRN (Reason: Nausea) Qty: 10 0RF oxycodone-acetaminophen [oxycodone-acetaminophen] 5-325 mg tablet 1 tab PO Q6H PRN PRN (Reason: Pain) 3 Days Qty: 12 0RF sulfamethoxazole-trimethoprim [sulfamethoxazole-trimethoprim] 800-160 mg tablet 1 tab PO BID Qty: 14 0RF naproxen 500 mg tablet 500 mg PO BID Qty: 14 0RF Primary Care Provider: Joni Adamson Referrals: Joni Adamson MD [Primary Care Provider] - Miracle Iyer MD [Med Staff - Active Staff] - As soon as possible Activity Restrictions/Additional Instructions: Your urine showed signs of infection, so you are prescribed antibiotics in addition to the ones you were given in the ER. This was sent for culture. Your stone is fairly large, 9.4 x 6.5 mm, which is highly likely to require surgical help in order to get it out. If you start running fevers and feeling poorly, and/or your symptoms are out of control return to the ER immediately. Disposition Disposition: Home, Self Care
[2023-04-05] MEDS: Ondansetron 4 MG/2 ML Vial IV (18:56)
[2023-04-05] MEDS: Morphine 4 MG/ML Syringe IV (18:57)
[2023-04-05] MEDS: Ketorolac 30 MG/ML Syringe IV (18:57)
[2023-04-05 19:08] LABS: Absolute Lymphocyte Count 3.19 X10^3/uL (0.83-4.51); Absolute Neutrophil Count 9.1 X10^3/uL (2.0-7.7); Basophil# 0.11 X10^3/uL; Basophil% 0.8 % (0-1); Eosinophil# 0.47 X10^3/uL; Eosinophils% 3.4 % (0-5); Hematocrit 49.5 % (37-47); Lymphocyte # 3.19 X10^3/ul (0.83-4.51); Lymphocyte % 23.1 % (19-41); Mean Corp Hgb Conc 32.3 g/dL (32-36); Mean Corpuscular Hgb 26.5 pg (27.0-32.0); Mean Corpuscular Volume 82.1 fL (81-99); Mean Platelet Vol. 9.8 fl (6.2-12.0); Monocyte# 0.79 X10^3/uL; Monocyte% 5.7 % (0-10); NRBC Flagged by Analyzer 0 % (0-5); Neutrophil # 9.12 X10^3/uL (2.7-7.7); Neutrophil % 66.1 % (47-70); Platelet Count 293 K/mm3 (150-450); RBC Distribution Width CV 13.2 % (11.6-14.6); Red Blood Count 6.03 M/mm3 (4.2-5.4); White Blood Count 13.8 K/mm3 (4.4-11.0)
[2023-04-05 19:20] LABS: Mucous, Urine 0 SEEN /hpf (<or=2+)
[2023-04-05 19:25] LABS: Internal QC Validated? YES +Cl - CLEAR BKGD; Pregnancy, Serum, hCG Quali. NEGATIVE Negative
[2023-04-05 19:25] LABS: Color, Urine Yellow (Yellow); Glucose, Dipstick Normal (Normal); Ketone-Dipstick 5 mg/dl (Negative); Leukocyte Esterase-Dipstick 500 /ul (Negative); Nitrite-Dipstick Negative (Negative); Occult Blood-Urine 25 /ul (Negative); Protein-Dipstick 500 mg/dl (Negative); Specific Gravity, Urine 1.015 (1.002-1.030); Urine Bilirubin Dipstick Negative (Negative); Urine Clarity Sl. Cloudy (Clear); Urine Urobilinogen Normal (Normal)
[2023-04-05 19:31] LABS: Anion Gap 8 (5-15); BUN 13 mg/dL (7-18); Calcium,Total 9.6 mg/dL (8.5-10.1); Chloride 107 mmol/L (98-107); EST Glomerular Filtration Rate 68 mL/min (>60); Est Glom Filt Rate - Afr Amer 83 mL/min (>60); Estimated Creatinine Clearance 66.81 ml/min; Glucose 110 mg/dL (74-106); Potassium 3.9 mmol/L (3.5-5.1); Sodium Level 137 mmol/L (136-145)
[2023-04-05 19:36] LABS: Amorphous Sediment 1+ URATE; Bacteria 1+ /hpf (None Seen); Red Blood Cells-Urine 0-5 SEEN /hpf (0-5); Squamous Epithelial Cells - UA 10-25 SEEN /hpf (5-10); White Blood Cells 25-50 SEEN /hpf (0-5)
[2023-04-05] MEDS: Ceftriaxone 1 GM/50 ML BAG IV (20:29)
[2023-04-05 21:19] VITALS: BP 158/90; PULSE 68; RESP 18; O2SAT 100
[2023-04-05 21:22] VITALS: BP 158/90; PULSE 67; RESP 18; O2SAT 100
== END 2023-04-05 21:30 | disposition home or self-care (01) ==
PROVIDERS: Emergency Provider Emergency Medicine; PCP Family Medicine; Visit Provider Emergency Medicine
DX: N20.2 Calculus of kidney with calculus of ureter (principal); N39.0 Urinary tract infection, site not specified; I10 Essential (primary) hypertension; J30.2 Other seasonal allergic rhinitis; F41.9 Anxiety disorder, unspecified; F32.A Depression, unspecified
CPT/HCPCS: 74176; 80048; 81001; 84703; 85025; 87086; 96365; 96375; 99282; J7030; A4216; J2405

== ENCOUNTER 2023-04-08 09:48 | Day surgery (SDC) | payer BC, SELFPAY ==
[2023-04-07 12:43] LABS: Color, Urine Yellow (Yellow); Glucose, Dipstick Normal (Normal); Ketone-Dipstick Negative (Negative); Leukocyte Esterase-Dipstick 500 /ul (Negative); Nitrite-Dipstick Negative (Negative); Occult Blood-Urine 150 /ul (Negative); Protein-Dipstick 100 mg/dl (Negative); Specific Gravity, Urine 1.015 (1.002-1.030); Urine Bilirubin Dipstick Negative (Negative); Urine Clarity Sl. Cloudy (Clear); Urine Urobilinogen Normal (Normal); Urine pH 6.5 (5.0 - 8.0)
[2023-04-07 16:35] LABS: Mucous, Urine 0 SEEN /hpf (<or=2+)
[2023-04-07 16:49] LABS: Bacteria 1+ /hpf (None Seen); Red Blood Cells-Urine 10-25 SEEN /hpf (0-5); Squamous Epithelial Cells - UA 5-10 SEEN /hpf (5-10); White Blood Cells 10-25 SEEN /hpf (0-5)
[2023-04-08] MEDS: Lactated Ringers 1,000 ML 15 ML IV (10:33)
[2023-04-08 10:35] VITALS: BP 114/81; PULSE 87; RESP 17; TEMP 36.4; O2SAT 97; BMI 39.3
--- NOTE | 2023-04-08 10:50 | OP.PCM_ITS ---
Report of Operation Date of Procedure: 04/08/23 Pre-Operative Diagnosis: Right proximal ureteral calculus with hydronephrosis, bilateral renal stones Post-Operative Diagnosis: Same Surgery/Procedure Performed:: Cystoscopy with right ureteral stent insertion Surgeon: Miracle Iyer Type of Anesthesia: MAC Specimen's removed: None Description of Procedure: The patient is a 32-year-old female with longstanding history of kidney stones found to have a proximal right ureteral calculus approximately 9 mm in size with obstruction. She now presents for cystoscopy with right ureteral stent insertion secondary to bacteriuria. Informed consent was obtained. The patient was taken to the operating room and placed on the operating room table. Anesthesia monitored the head, neck, airway, IV access and vital signs throughout the case. Once anesthesia was appropriate administered, the patient was placed into dorsolithotomy position and was prepped and draped in usual s terile fashion. The cystoscope was inserted through the urethra under direct visualization into the urinary bladder. Bilateral ureteral orifices were located in the area of the trigone. The bladder mucosa was normal. The right ureteral orifice was intubated with a 0.035 Glidewire which was seen in the renal pelvis beyond the level of the stone. A 6 Slovenian 24 cm JJ stent was inserted over the wire with good curling in the renal pelvis as well as the urinary bladder. The patient's bladder was then emptied, the cystoscope was removed and the case was terminated. She was awakened and taken to the recovery room in good condition. There were no complications during this procedure. Grafts/Implants Used: 6 x 24 JJ stent Complications None Admit VTE Documentation VTE Present on Admission: Yes VTE Mechan Device Prophylaxis: SCD's VTE Pharm Prophylaxis ordered?: No Reason prophylaxis not ordered:: Treatment Not Indicated
--- NOTE | 2023-04-08 10:52 | DCINST_ITS ---
Discharge Instructions Diet Discharge Diet: No restrictions Activity Discharge Activity: Return to Normal Activity Dressing / Incision Call your doctor if you observe: Fever of 101 or Higher, Inability to urinate and Inability to have a bowel movement Follow Up Care Please Follow Up With: Miracle Iyer MD When: The office will make arrangements for the next procedure Test Results: Test results from this visit will be discussed in further detail at your follow- up appointment, if applicable. Discharge Plan Admission Attending Provider: Miracle Iyer Primary Care Provider: Joni Adamson Discharge Orders/Prescriptions Prescriptions: New phenazopyridine [Pyridium] 200 mg tablet 200 mg PO TID PRN PRN (Reason: Bladder Spasms) 7 Days Qty: 30 2RF cephalexin [cephalexin] 500 mg capsule 500 mg PO 3XD 5 Days Qty: 15 0RF Continued isotretinoin [Accutane] 40 mg capsule 40 mg PO PRN PRN (Reason: ACNE) Rx Instructions: must administer with a meal/food desvenlafaxine succinate [Pristiq] 50 mg tablet extended release 24 hr 50 mg PO DAILY levocetirizine 5 MG tablet 1 tab PO DAILY lamotrigine 200 mg Tablet 200 mg PO DAILY ondansetron 4 mg tablet,disintegrating 4 mg PO Q8H PRN PRN (Reason: Nausea) Qty: 10 0RF quetiapine [Seroquel] 25 mg tablet 25 mg PO QHS labetalol 200 mg tablet 200 mg PO BID montelukast [Singulair] 10 mg tablet 10 mg PO DAILY azelastine 137 mcg (0.1 %) aerosol,spray 1 spray INTRANASAL PRN Patient Comments: USE 2 SPRAY(S) IN EACH NOSTRIL TWICE DAILY NEEDED oxycodone-acetaminophen [Percocet] 5-325 mg tablet 1 tab PO Q6H PRN (Reason: pain) 3 Days Qty: 12 0RF Discontinued sulfamethoxazole-trimethoprim [sulfamethoxazole-trimethoprim] 800-160 mg tablet 1 tab PO BID Qty: 14 0RF Referrals / Follow Up: Joni Adamson MD [Primary Care Provider] - Disposition Disposition (needs filled in before D/C Order can be placed): Home, Self Care
[2023-04-08] MEDS: Cefazolin 2 GM in 0.9% Normal Saline 100 ML IV (11:02)
[2023-04-08 11:25] VITALS: BP 107/70; BP 114/81; PULSE 71; RESP 16; TEMP 36.6; O2SAT 96
[2023-04-08 11:30] VITALS: BP 107/70; BP 114/81; PULSE 68; RESP 16; O2SAT 96
[2023-04-08 11:35] VITALS: BP 114/81; BP 115/72; PULSE 72; RESP 16; O2SAT 98
[2023-04-08 11:40] VITALS: BP 105/72; BP 114/81; PULSE 72; RESP 16; TEMP 36.4; O2SAT 97
[2023-04-08 12:28] VITALS: BP 114/81; BP 118/66; PULSE 70; RESP 18; TEMP 36.4; O2SAT 99
== END 2023-04-08 12:38 | disposition home or self-care (01) ==
LOC: SDC 09:50 → AC 10:04
PROVIDERS: PCP Family Medicine; Referring Provider Urology; Visit Provider Urology
PROC: (CPT 52332; principal; 2023-04-08 11:35)
DX: N13.2 Hydronephrosis with renal and ureteral calculous obstruction (principal); R82.71 Bacteriuria; Z87.442 Personal history of urinary calculi; I10 Essential (primary) hypertension; N39.3 Stress incontinence (female) (male)
CPT/HCPCS: 52332; 00910; 76000; 81001; 81002; 87086; J7120; C2617

== ENCOUNTER 2023-04-15 12:29 | Day surgery (SDC) | payer BC, SELFPAY ==
[2023-04-15] VITALS (9 sets, daily range): BP systolic 120–151; BP diastolic 75–96; PULSE 73–87; RESP 16–18; TEMP 36.4–36.8; O2SAT 93–100; BMI 39.6
[2023-04-15] MEDS: Lactated Ringers 1,000 ML 15 ML IV (13:18)
[2023-04-15] MEDS: Cefazolin 2 GM in 0.9% Normal Saline 100 ML IV (13:23)
--- NOTE | 2023-04-15 13:37 | PCM.OPRPT ---
Problems Associated Problem List Diagnoses (1) Bilateral renal stones: Report of Operation Date of Procedure: 04/15/23 Pre-Operative Diagnosis: Right renal stones and right ureteral calculus Post-Operative Diagnosis: Same, the right ureteral calculus being pushed into the kidney Surgery/Procedure Performed:: Right renal extracorporal shockwave lithotripsy Surgeon: Miracle Iyer Type of Anesthesia: General Description of Procedure: The patient is a 32-year-old female with a long standing history of stones who now presents for shockwave lithotripsy intervention on a proximal right 9 mm ureteral calculus that was pushed into the kidney at the time of her stent placement last week. Informed consent was obtained. The patient was taken to the operating room and placed on the operating room table. Anesthesia monitored the head, neck, airway, IV access and vital signs throughout the case. Once anesthesia was appropriately administered, the patient was aligned with the lithotripter. The stone was easily identified. 3000 shocks were applied to the stone which appeared to be fragmented at the conclusion of the case. The patient was then awakened and taken to the recovery room in good condition. There were no complications during this procedure. Complications None Admit VTE Documentation VTE Present on Admission: Yes VTE Mechan Device Prophylaxis: SCD's VTE Pharm Prophylaxis ordered?: No Reason prophylaxis not ordered:: Treatment Not Indicated
--- NOTE | 2023-04-15 13:39 | DCINST_ITS ---
Discharge Instructions Diet Discharge Diet: No restrictions Activity Discharge Activity: Return to Normal Activity Dressing / Incision Call your doctor if you observe: Fever of 101 or Higher, Inability to urinate and Inability to have a bowel movement Follow Up Care Please Follow Up With: Miracle Iyer MD When: The office will call to make arrangements for an appointment with KUB and stent removal. Test Results: Test results from this visit will be discussed in further detail at your follow- up appointment, if applicable. Discharge Plan Admission Attending Provider: Miracle Iyer Primary Care Provider: Joni Adamson Discharge Orders/Prescriptions Prescriptions: New oxycodone-acetaminophen [Percocet] 5-325 mg tablet 1 tab PO Q8H PRN (Reason: pain) 3 Days Qty: 10 0RF Continued isotretinoin [Accutane] 40 mg capsule 40 mg PO PRN PRN (Reason: ACNE) Rx Instructions: must administer with a meal/food desvenlafaxine succinate [Pristiq] 50 mg tablet extended release 24 hr 50 mg PO DAILY levocetirizine 5 MG tablet 1 tab PO DAILY lamotrigine 200 mg Tablet 200 mg PO DAILY ondansetron 4 mg tablet,disintegrating 4 mg PO Q8H PRN PRN (Reason: Nausea) Qty: 10 0RF quetiapine [Seroquel] 25 mg tablet 25 mg PO QHS labetalol 200 mg tablet 200 mg PO BID montelukast [Singulair] 10 mg tablet 10 mg PO DAILY azelastine 137 mcg (0.1 %) aerosol,spray 1 spray INTRANASAL PRN Patient Comments: USE 2 SPRAY(S) IN EACH NOSTRIL TWICE DAILY NEEDED phenazopyridine [Pyridium] 200 mg tablet 200 mg PO TID PRN PRN (Reason: Bladder Spasms) 7 Days Qty: 30 2RF oxycodone-acetaminophen [Percocet] 5-325 mg tablet 1 tab PO Q6H PRN (Reason: pain) 3 Days Qty: 12 0RF Changed cephalexin 500 mg capsule 500 mg PO BID 3 Days Qty: 6 0RF Referrals / Follow Up: Joni Adamson MD [Primary Care Provider] - Disposition Disposition (needs filled in before D/C Order can be placed): Home, Self Care
== END 2023-04-15 16:20 | disposition home or self-care (01) ==
LOC: SDC 12:30 → AC 12:32
PROVIDERS: PCP Family Medicine; Referring Provider Urology; Visit Provider Urology
PROC: (CPT 50590; principal; 2023-04-15 13:50)
DX: N20.2 Calculus of kidney with calculus of ureter (principal); I10 Essential (primary) hypertension; Z87.442 Personal history of urinary calculi; R80.9 Proteinuria, unspecified; N39.3 Stress incontinence (female) (male)
CPT/HCPCS: 50590; J7120; J2405

== ENCOUNTER → 2023-05-03 | Outpatient (CLI) | payer BC, SELFPAY ==
--- NOTE | 2023-05-03 10:44 | RAD_ITS ---
STUDY: X-RAY - ABDOMEN/PELVIS REASON FOR EXAM: Female, 32 years old. RENAL CALC TECHNIQUE: Single AP view of the abdomen / pelvis. COMPARISON: None. FINDINGS: Normal visualized lung bases. There is an unremarkable bowel gas pattern. Right ureteral stent. No definite ureteral stone. Normal soft tissue structures. Normal visualized osseous structures. RAD/Abdomen Single View IMPRESSION: Right ureteral stent. No definite ureteral stone. Electronically Signed: Micky Ortega MD at 21:59 EDT ,
== END | disposition home or self-care (01) ==
LOC: MTLAB 10:42 → MTRAD 10:44
PROVIDERS: PCP Family Medicine; Referring Provider Urology; Visit Provider Urology
DX: N13.2 Hydronephrosis with renal and ureteral calculous obstruction (principal)
CPT/HCPCS: 74018

== ENCOUNTER → 2023-08-03 | Outpatient (CLI) | payer BC, SELFPAY ==
--- NOTE | 2023-08-03 13:08 | US_ITS ---
STUDY: ULTRASOUND OF THE FEMALE PELVIS - COMPLETE REASON FOR EXAM: Female, 32 years old. Menorrhagia LMP: 07/23/2023 TECHNIQUE: Transabdominal and Transvaginal TECHNICAL QUALITY: Adequate. COMPARISON: None. FINDINGS: The uterus is anteverted and is in a midline position. The uterus measures 10.1 x 6.5 x 5.5 cm. Normal uterine cervix. The endometrium measures 8 mm in thickness, and is hyperechoic. There is no demonstrated endometrial mass. There is no demonstrated myometrial mass. I.U.D. - The patient does not have an I.U.D. The right ovary was removed The left ovary is visualized. The left ovary measures 3.4 x 3.0 x 2.4 cm. There is no left ovarian cyst or ovarian mass. There is no visualized left adnexal mass or complex lesion. There is normal arterial and normal venous vascularity. There is no fluid in the cul-de-sac. The bladder is incompletely distended US/Pelvic (Non ) IMPRESSION: No suspicious sonographic findings, previous removal of the right ovary. Electronically Signed: Greg Roberts MD at 8:48 EST ,
== END | disposition home or self-care (01) ==
LOC: US 13:06
PROVIDERS: PCP Family Medicine; Referring Provider Obstetrics & Gynecology; Visit Provider Obstetrics & Gynecology
DX: N92.0 Excessive and frequent menstruation with regular cycle (principal)
CPT/HCPCS: 76830; 76856

== ENCOUNTER → 2025-05-14 | Outpatient (CLI) | payer BC, SELFPAY ==
[2025-05-19 12:08] LABS: Testosterone, % Free 1.67 % (0.50-2.80); Testosterone, Free 0.17 ng/dL (0.10-0.85)
== END | disposition home or self-care (01) ==
PROVIDERS: PCP Family Medicine; Visit Provider Obstetrics & Gynecology
DX: L70.9 Acne, unspecified (principal); L73.2 Hidradenitis suppurativa; F41.9 Anxiety disorder, unspecified
CPT/HCPCS: 36415; 82627; 84402; 84403; 84443; 82626